=== PATIENT | female | born 1965 | race Caucasian/White ===

== ENCOUNTER 2017-11-26 20:26 | Inpatient (IN) ==
--- NOTE | 2017-11-26 21:24 | ED ---
HPI General Chief complaint: Extremity Problem,Nontraumatic Stated complaint: Fluid In Abd x2wks Time Seen by Provider: 11/26/17 21:10 Source: patient Mode of arrival: ambulatory History of Present Illness HPI narrative: Patient is a 52-year-old female presents the emergency room for evaluation of dyspnea on exertion, abdominal swelling as well as lower extremity edema. Patient reports that she has not seen a primary care doctor in over 30 years as she does not have insurance and has not been sick. Patient reports that since September, she has noticed increased swelling to her lower extremities. Patient reports that the swelling was exacerbated by being on her legs for a prolonged period of time, reports that when she comes home from work , she has increased lower leg swelling. Patient reports that swelling does increase improve when she raises her legs. Patient reports that the swelling has gotten worse and has been persistent. Reports that 10 days ago, she noted some abdominal swelling. Patient reports that she knows that she is overweight but has never had abdominal swelling in the past. Reports concern that the left side of her abdomen feels harder than the right side of her abdomen. Reports that she has been eating and drinking like her normal self. Denies abdominal pain. Denies n/v. Denies chest pain. Reports concerns as since september, she has been having extreme dyspnea on exertion. Patient reports that she feels short of breath going from her house to the car and back again. Patient does endorse that she does take 4 baby ASA 4 times a day for many years as she wanted to make sure her blood was thin Onset (ago): month(s) (past 2 months) Related Data Home Medications Medication Instructions Recorded Confirmed aspirin 324 mg PO Q6HR 11/26/17 11/26/17 Allergies Allergy/AdvReac Type Severity Reaction Status Date / Time No Known Allergies Allergy Unverified 11/26/17 21:11 Review of Systems Except as stated in HPI: all other systems reviewed are negative Cardiovascular Reports leg edema and Reports dyspnea Gastrointestinal Denies abdominal pain, Denies belching, Reports bloating, Denies heartburn, Denies diarrhea, Denies nausea and Denies vomiting PMFSH Social History Social History Substance History: No History of Abuse Smoking Status: Former smoker How Often Do You Have a Drink Containing Alcohol: Never Recent Out of Country Travel within the Last 8 Weeks: No Exam Narrative Exam Narrative: GENERAL: Mild distress SKIN: Focused skin assessment warm/dry. HEAD: Atraumatic. Normocephalic. EYES: Pupils equal and round. No scleral icterus. No injection or drainage. ENT: No nasal bleeding or discharge. Mucous membranes pink and moist. NECK: Trachea midline. No JVD. CARDIOVASCULAR: tachcardic. No murmur appreciated. RESPIRATORY: No accessory muscle use. Clear to auscultation. Breath sounds equal bilaterally. GASTROINTESTINAL: Abdomen soft, non-tender, nondistended. Hepatic and splenic margins not palpable. MUSCULOSKELETAL: No obvious deformities. No clubbing. No cyanosis. +3 Pedal edema. NEUROLOGICAL: Awake and alert. No obvious cranial nerve deficits. Motor grossly within normal limits. Normal speech. PSYCHIATRIC: Anxious mood and affect; insight and judgment normal. Course Initial Documented Vital Signs Temperature 98.8 F 11/26/17 20:45 Pulse Rate 103 H 11/26/17 20:45 Respiratory Rate 20 11/26/17 20:45 Blood Pressure 162/75 H 11/26/17 20:45 Pulse Oximetry 100 11/26/17 20:45 Last Documented Vital Signs Temperature 98.8 F 11/26/17 20:45 Pulse Rate 98 H 11/27/17 00:03 Respiratory Rate 20 11/27/17 00:03 Blood Pressure 124/63 11/27/17 00:03 Pulse Oximetry 95 11/27/17 00:03 Critical Care Time Critical Care Time: Yes Total Critical Care Time: 30 Attestation: Aggregate critical care time was 30 minutes. Time to perform other separately billable procedures was not included in the critical care time. My time did not include minutes spent treating any other patients simultaneously or on activities that did not directly contribute to the patient's treatment. The services I provided to this patient were to treat and/or prevent clinically significant deterioration that could result in: , decompensation, detioration I provided critical care services requiring my management, as noted below: Chart data review, documentation time, medication orders and management, vital sign assessments/reviewing monitor data, ordering and reviewing lab tests, ordering and interpreting/reviewing x-rays and diagnostic studies, care of the patient and discussion of the patient with the admitting physicians. Medical Decision Making STEPHANIE Attestation STEPHANIE supervised visit: No MDM Narrative Medical decision making narrative: During the course of the patients emergency department visit, the patients history, examination, and differential diagnosis were reviewed with the patient. The patient was placed on a cardiac rehab nurse with oximetry and frequent blood pressure monitoring. The patient had an IV access obtained and blood work sent for analysis. Patient has received no medical care for the past 30 years, there are multiple concerns for patient and she does have multiple medical complaints. Plan to start patients workup with obtaining EKG, CMP, CBC, cardiac enzymes as well as BNP. Patient does have fullness to the left side of her abdomen, she has no abdominal pain, reports that she has been having normal bowel movements, she has been eating and drinking like her normal self, will hold on imaging at this time as this has been an issue for the past 2 months. The patients laboratory studies were reviewed and remarkable for hemoglobin of 4.4, hematocrit 15.9. Patient consents to blood transfusion. Anemia labs are ordered prior to blood transfusion. All labs and all studies reviewed with patient, patient agreeable to admission to the hospital. case reviewed with dr. perkins who accepts pt to service Differential Diagnosis Differential Diagnosis: Differential includes CHF, ACS, arrhythmia, GI bleed, anemia, electrolyte abnormality, PE, DVT, abdominal mass versus cancer Medical Records Medical records reviewed: Yes I reviewed the patient's medical records. Lab Data Lab results reviewed: Yes I reviewed the patient's lab results. Result diagrams: 11/26/17 23:15 11/26/17 21:35 Lab Results 11/26/17 11/26/17 11/26/17 Range/Units 21:35 21:35 21:35 CBC w Diff WBC (4.0-11.0) th/mm3 RBC (4.00-5.30) mil/mm3 Hgb (11.6-15.3) gm/dL Hct (35.0-46.0) % MCV (80.0-100.0) fL MCH (27.0-34.0) pg MCHC (32.0-36.0) % RDW (11.6-17.2) % Plt Count (150-450) th/mm3 MPV (7.0-11.0) fL Neut % (Auto) (16.0-70.0) % Lymph % (Auto) (9.0-44.0) % [place] % (Auto) (0.0-8.0) % Eos % (Auto) (0.0-4.0) % Baso % (Auto) (0.0-2.0) % Neut # (Auto) (1.8-7.7) th/mm3 Lymph # (Auto) (1.0-4.8) th/mm3 [place] # (Auto) (0.0-0.9) th/mm3 Eos # (Auto) (0.0-0.4) th/mm3 Baso # (Auto) (0.0-0.2) th/mm3 WBC Differential Diff Scan Differential Comment Tear Drop Cells (None) Ovalocytes (None) Stomatocytes (None) Retic Count (0.4-3.0) % Absolute Retic (20.0-150.0) mil/L PT 11.2 (9.8-11.6) sec INR 1.1 Ratio APTT 24.5 (24.3-30.1) sec Sodium 138 (136-145) meq/L Potassium 3.8 (3.5-5.1) meq/L Chloride 102 (98-107) meq/L Carbon Dioxide 26.2 (21.0-32.0) meq/L Anion Gap 10 (5-15) meq/L BUN 11 (7-18) mg/dL Creatinine 0.59 (0.50-1.00) mg/dL Estimated GFR Greater than 89 (>89) mL/min Random Glucose 120 H (74-106) mg/dL Calcium 8.2 L (8.5-10.1) mg/dL Magnesium 2.0 (1.5-2.5) mg/dL Iron (50-170) mcg/dL TIBC (250-450) mcg/dL % Saturation (20-50) % Ferritin (8-252) ng/mL Total Bilirubin 0.5 (0.2-1.0) mg/dL AST 10 L (15-37) U/L ALT 11 (10-53) U/L Alkaline Phosphatase 80 (45-117) U/L Total Creatine Kinase 48 (26-192) U/L Troponin I Less than 0.02 L (0.02-0.05) ng/mL B-Natriuretic Peptide 211 H (0-100) pg/mL Total Protein 6.9 (6.4-8.2) g/dL Albumin 2.6 L (3.4-5.0) g/dL Lipase 67 L (73-393) U/L Vitamin B12 (193-986) pg/mL Folate (3.1-17.5) ng/mL Urine Color (Yellw/Straw) Urine Clarity (Clear) Urine pH (5.0-8.5) Ur Specific [place] (1.002-1.035) Urine Protein (Neg-Trace) mg/dL Urine Glucose (UA) (Negative) mg/dL Urine Ketones (Negative) mg/dL Urine Occult Blood (Negative) Urine Nitrate (Negative) Urine Bilirubin (Negative) Urine Urobilinogen (Less than 2) mg/dL Ur Leukocyte Esterase (Negative) Urine WBC (0-5) /hpf Ur Squamous Epith Cells (0-5) /hpf Amorphous Sediment (None) /hpf Urine Bacteria (None) /hpf Hyaline Casts (0-3) /lpf Granular Casts (None) /lpf Micro UA Comment Urine Culture Comments Blood Type Blood Type Recheck Antibody Screen 11/26/17 11/26/17 11/27/17 Range/Units 22:10 23:15 01:00 CBC w Diff Slide review pending WBC 10.5 (4.0-11.0) th/mm3 RBC 2.90 L (4.00-5.30) mil/mm3 Hgb 4.4 L* (11.6-15.3) gm/dL Hct 15.9 L* (35.0-46.0) % MCV 55.0 L (80.0-100.0) fL MCH 15.2 L (27.0-34.0) pg MCHC 27.6 L (32.0-36.0) % RDW 23.0 H (11.6-17.2) % Plt Count 343 (150-450) th/mm3 MPV 8.1 (7.0-11.0) fL Neut % (Auto) 81.5 H (16.0-70.0) % Lymph % (Auto) 10.3 (9.0-44.0) % [place] % (Auto) 6.2 (0.0-8.0) % Eos % (Auto) 1.7 (0.0-4.0) % Baso % (Auto) 0.3 (0.0-2.0) % Neut # (Auto) 8.5 H (1.8-7.7) th/mm3 Lymph # (Auto) 1.1 (1.0-4.8) th/mm3 [place] # (Auto) 0.7 (0.0-0.9) th/mm3 Eos # (Auto) 0.2 (0.0-0.4) th/mm3 Baso # (Auto) 0.0 (0.0-0.2) th/mm3 WBC Differential . Diff Scan Auto diff confirmed Differential Comment . Tear Drop Cells 1+ H (None) Ovalocytes 1+ H (None) Stomatocytes 1+ H (None) Retic Count (0.4-3.0) % Absolute Retic (20.0-150.0) mil/L PT (9.8-11.6) sec INR Ratio APTT (24.3-30.1) sec Sodium (136-145) meq/L Potassium (3.5-5.1) meq/L Chloride (98-107) meq/L Carbon Dioxide (21.0-32.0) meq/L Anion Gap (5-15) meq/L BUN (7-18) mg/dL Creatinine (0.50-1.00) mg/dL Estimated GFR (>89) mL/min Random Glucose (74-106) mg/dL Calcium (8.5-10.1) mg/dL Magnesium (1.5-2.5) mg/dL Iron (50-170) mcg/dL TIBC (250-450) mcg/dL % Saturation (20-50) % Ferritin (8-252) ng/mL Total Bilirubin (0.2-1.0) mg/dL AST (15-37) U/L ALT (10-53) U/L Alkaline Phosphatase (45-117) U/L Total Creatine Kinase (26-192) U/L Troponin I (0.02-0.05) ng/mL B-Natriuretic Peptide (0-100) pg/mL Total Protein (6.4-8.2) g/dL Albumin (3.4-5.0) g/dL Lipase (73-393) U/L Vitamin B12 (193-986) pg/mL Folate (3.1-17.5) ng/mL Urine Color Yellow (Yellw/Straw) Urine Clarity Clear (Clear) Urine pH 5.5 (5.0-8.5) Ur Specific [place] Greater/equal 1.030 (1.002-1.035) Urine Protein 100 H (Neg-Trace) mg/dL Urine Glucose (UA) Negative (Negative) mg/dL Urine Ketones Negative (Negative) mg/dL Urine Occult Blood Large H (Negative) Urine Nitrate Negative (Negative) Urine Bilirubin Negative (Negative) Urine Urobilinogen 0.2 (Less than 2) mg/dL Ur Leukocyte Esterase Negative (Negative) Urine WBC 5-8 H (0-5) /hpf Ur Squamous Epith Cells 0-5 (0-5) /hpf Amorphous Sediment Many H (None) /hpf Urine Bacteria Moderate H (None) /hpf Hyaline Casts 4-10 H (0-3) /lpf Granular Casts 4-10 H (None) /lpf Micro UA Comment Culture indicated Urine Culture Comments Culture indicated Blood Type O Positive Blood Type Recheck Required Antibody Screen Negative 11/27/17 11/27/17 Range/Units 01:50 01:50 CBC w Diff WBC (4.0-11.0) th/mm3 RBC (4.00-5.30) mil/mm3 Hgb (11.6-15.3) gm/dL Hct (35.0-46.0) % MCV (80.0-100.0) fL MCH (27.0-34.0) pg MCHC (32.0-36.0) % RDW (11.6-17.2) % Plt Count (150-450) th/mm3 MPV (7.0-11.0) fL Neut % (Auto) (16.0-70.0) % Lymph % (Auto) (9.0-44.0) % [place] % (Auto) (0.0-8.0) % Eos % (Auto) (0.0-4.0) % Baso % (Auto) (0.0-2.0) % Neut # (Auto) (1.8-7.7) th/mm3 Lymph # (Auto) (1.0-4.8) th/mm3 [place] # (Auto) (0.0-0.9) th/mm3 Eos # (Auto) (0.0-0.4) th/mm3 Baso # (Auto) (0.0-0.2) th/mm3 WBC Differential Diff Scan Differential Comment Tear Drop Cells (None) Ovalocytes (None) Stomatocytes (None) Retic Count 5.2 H (0.4-3.0) % Absolute Retic 150.1 H (20.0-150.0) mil/L PT (9.8-11.6) sec INR Ratio APTT (24.3-30.1) sec Sodium (136-145) meq/L Potassium (3.5-5.1) meq/L Chloride (98-107) meq/L Carbon Dioxide (21.0-32.0) meq/L Anion Gap (5-15) meq/L BUN (7-18) mg/dL Creatinine (0.50-1.00) mg/dL Estimated GFR (>89) mL/min Random Glucose (74-106) mg/dL Calcium (8.5-10.1) mg/dL Magnesium (1.5-2.5) mg/dL Iron 13 L (50-170) mcg/dL TIBC 491 H (250-450) mcg/dL % Saturation 2.6 L (20-50) % Ferritin 3 L (8-252) ng/mL Total Bilirubin (0.2-1.0) mg/dL AST (15-37) U/L ALT (10-53) U/L Alkaline Phosphatase (45-117) U/L Total Creatine Kinase (26-192) U/L Troponin I (0.02-0.05) ng/mL B-Natriuretic Peptide (0-100) pg/mL Total Protein (6.4-8.2) g/dL Albumin (3.4-5.0) g/dL Lipase (73-393) U/L Vitamin B12 405 (193-986) pg/mL Folate 9.7 (3.1-17.5) ng/mL Urine Color (Yellw/Straw) Urine Clarity (Clear) Urine pH (5.0-8.5) Ur Specific [place] (1.002-1.035) Urine Protein (Neg-Trace) mg/dL Urine Glucose (UA) (Negative) mg/dL Urine Ketones (Negative) mg/dL Urine Occult Blood (Negative) Urine Nitrate (Negative) Urine Bilirubin (Negative) Urine Urobilinogen (Less than 2) mg/dL Ur Leukocyte Esterase (Negative) Urine WBC (0-5) /hpf Ur Squamous Epith Cells (0-5) /hpf Amorphous Sediment (None) /hpf Urine Bacteria (None) /hpf Hyaline Casts (0-3) /lpf Granular Casts (None) /lpf Micro UA Comment Urine Culture Comments Blood Type Blood Type Recheck Antibody Screen Imaging Data Attestation: I personally reviewed and interpreted this imaging study as follows : Radiologist's impression: ITS Impressions Chest X-Ray 11/26/17 21:11 CONCLUSION: 1. Cardiomegaly with positive fluid balance. Venous Doppler Study 11/26/17 21:11 CONCLUSION: 1. Somewhat limited examination due to patient's body habitus. 2. No definitive sonographic evidence for lower extremity DVT. Abdomen/Pelvis CT 11/26/17 23:13 CONCLUSION: 1. Limited examination due to patient's body habitus. 2. No definite acute abnormality in the abdomen or pelvis. Specifically, no ascites or bowel obstruction. 3. Hepatomegaly with diffusely decreased hepatic density consistent with hepatic steatosis. 4. Splenomegaly. 5. Sigmoid diverticulosis without definitive evidence for diverticulitis. 6. 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 ECG Data EKG Prior to Arrival: No Attestation: I personally reviewed and interpreted this ECG as follows: Prior ECG tracings: not available for review Interpretation: EKG at 2129: Sinus tach at 102bpm, qt/qtc: 353/412, nonspecific st and t wave changes Discharge Plan Discharge Disposition Patient Disposition: 30 Still Patient Discharge Condition Condition: Serious Physicians Team ED Provider: Margaret Ledesma Primary Care Provider: Primary Care Callumi,Marsha Attending Provider: Margaret Perkins Status ED Status: Admitted Patient
[2017-11-26 22:00] LABS: Chloride 102 meq/L (98-107); Potassium 3.8 meq/L (3.5-5.1); Sodium 138 meq/L (136-145)
[2017-11-26 22:04] LABS: Albumin 2.6 g/dL (3.4-5.0); Anion Gap 10 meq/L (5-15); Calcium 8.2 mg/dL (8.5-10.1); Carbon Dioxide 26.2 meq/L (21.0-32.0); Glucose,Random 120 mg/dL (74-106); Lipase 67 U/L (73-393)
[2017-11-26 22:05] LABS: Blood Urea Nitrogen 11 mg/dL (7-18)
[2017-11-26 22:06] LABS: Activated Partial Thrombo Time 24.5 sec (24.3-30.1); INR 1.1 Ratio; Prothrombin Time 11.2 sec (9.8-11.6)
[2017-11-26 22:07] LABS: Alanine Aminotransferase 11 U/L (10-53); Aspartate Aminotransferase 10 U/L (15-37); Glomerular Filtration Rate Greater Than 89 mL/min (>89)
[2017-11-26 22:09] LABS: Total Protein 6.9 g/dL (6.4-8.2)
[2017-11-26 22:10] LABS: Alkaline Phosphatase 80 U/L (45-117)
[2017-11-26 22:28] LABS: Bilirubin,Urine Negative (Negative); Clarity,Urine Clear (Clear); Color,Urine Yellow (Yellw/Straw); Glucose,Urine (UA) Negative (Negative); Leukocyte Esterase,Urine Negative (Negative); Nitrite,Urine Negative (Negative); PH,Urine 5.5 (5.0-8.5); Specific Gravity,Urine Greater/Equal 1.030 (1.002-1.035); Urobilinogen,Urine 0.2 mg/dL (Less than 2)
[2017-11-26 22:43] LABS: Creatine Kinase 48 U/L (26-192)
[2017-11-26 23:01] LABS: Amorphous Sediment,Urine Many /hpf; Bacteria,Urine Moderate /hpf; Squamous Epithelial Cell,Urine 0-5 /hpf (0-5)
--- NOTE | 2017-11-26 23:21 | US ---
EXAM DATE: 11/26/2017 11:10 PM EDT AGE/SEX: 52 years / Female INDICATIONS: Lower extremity edema with dyspnea on exertion. CLINICAL DATA: This is the patient's initial encounter. Patient reports that signs and symptoms have been present for 2 weeks and indicates a pain score of 5/10. MEDICAL/SURGICAL HISTORY: . Edema. None. COMPARISON: No prior exams available for comparison. TECHNIQUE: Venous ultrasound of both lower extremities was performed from the inguinal ligament to t he proximal calf. Real-time, color Doppler and spectral tracing, compression and augmentation techni ques were used. FINDINGS: Somewhat limited examination due to patient's body habitus. Right Leg: Normal compression of the deep venous system from the inguinal region to the proximal kiera f. No echogenic clot is seen. Normal response of the venous system to augmentation and respiration. Left Leg: Normal compression of the deep venous system from the inguinal region to the proximal calf . No echogenic clot is seen. Normal response of the venous system to augmentation and respiration. Other: None. CONCLUSION: 1. Somewhat limited examination due to patient's body habitus. 2. No definitive sonographic evidence for lower extremity DVT. Electronically signed by: Xavi Manning MD 11/26/2017 11:20 PM EDT
--- NOTE | 2017-11-26 23:22 | XR ---
EXAM DATE: 11/26/2017 11:18 PM EDT AGE/SEX: 52 years / Female INDICATIONS: Shortness of breath and fluid retention. CLINICAL DATA: This is the patient's initial encounter. Patient reports that signs and symptoms have been present for 3 days and indicates a pain score of 0/10. MEDICAL/SURGICAL HISTORY: None. None. COMPARISON: No prior exams available for comparison. FINDINGS: Mild diffuse interstitial prominence. Cardiac silhouette is enlarged. Central pulmonary vascularity i s indistinct. Bony thorax is intact. CONCLUSION: 1. Cardiomegaly with positive fluid balance. Electronically signed by: Xavi Manning MD 11/26/2017 11:20 PM EDT
--- NOTE | 2017-11-26 23:45 | CT ---
EXAM DATE: 11/26/2017 11:38 PM EDT AGE/SEX: 52 years / Female INDICATIONS: Abdominal distention. CLINICAL DATA: This is the patient's initial encounter. Patient reports that signs and symptoms have been present for 2 weeks and indicates a pain score of 10/10. MEDICAL/SURGICAL HISTORY: None. None. ORAL CONTRAST: No oral contrast ingested. RADIATION DOSE: 33.60 CTDI (mGy) ; Patient body habitus COMPARISON: No prior exams available for comparison. TECHNIQUE: Multiple contiguous axial images were obtained through the abdomen and pelvis following b olus infusion of 100 ml Omnipaque 350 (iohexol) nonionic water-soluble contrast as a single exam do se. No oral contrast ingested. Using automated exposure control and adjustment of the mA and/or kV a ccording to patient size, radiation dose was kept as low as reasonably achievable to obtain optimal d iagnostic quality images. DICOM format image data is available electronically for review and compari son. FINDINGS: LOWER LUNGS: The visualized lower lungs are clear. LIVER: Liver demonstrates diffusely decreased density and is enlarged. No gross focal mass or intrah epatic ductal dilatation. SPLEEN: Spleen is enlarged measuring up to 16 cm in length. PANCREAS: Unremarkable without mass or calcification. 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 Kidneys demonstrate uniform enhancement without radiopaque renal calculi or hydronephrosis. ADRENAL GLANDS: Unremarkable. AORTA: Misit-aneurysmal. BOWEL/MESENTERY: Mild sigmoid diverticulosis. Bowel otherwise appears unremarkable without evidence for obstruction. Appendix is visualized and normal in appearance. No free fluid or drainable fluid co llections. ABDOMINAL WALL: Intact. RETROPERITONEUM: No evidence of adenopathy in the retrocrural, para-aortic, or deep pelvic regions. BLADDER: Contours are smooth. REPRODUCTIVE: No abnormal masses or calcifications seen. BONY STRUCTURES: Advanced degenerative spondylosis of the lumbar spine CONCLUSION: 1. Limited examination due to patient's body habitus. 2. No definite acute abnormality in the abdomen or pelvis. Specifically, no ascites or bowel obstruc tion. 3. Hepatomegaly with diffusely decreased hepatic density consistent with hepatic steatosis. 4. Splenomegaly. 5. Sigmoid diverticulosis without definitive evidence for diverticulitis. 6. 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 Electronically signed by: Xavi Manning MD 11/26/2017 11:43 PM EDT
[2017-11-26 23:50] LABS: Baso % (Auto) 0.3 % (0.0-2.0); Eos # (Auto) 0.2 th/mm3 (0.0-0.4); Eos % (Auto) 1.7 % (0.0-4.0); Lymph # (Auto) 1.1 th/mm3 (1.0-4.8); Lymph % (Auto) 10.3 % (9.0-44.0); Mean Corpuscular Hemoglobin 15.2 pg (27.0-34.0); Mean Platelet Volume 8.1 fL (7.0-11.0); Mono # (Auto) 0.7 th/mm3 (0.0-0.9); Mono % (Auto) 6.2 % (0.0-8.0); Neut # (Auto) 8.5 th/mm3 (1.8-7.7); Neut % (Auto) 81.5 % (16.0-70.0); Platelet Count 343 th/mm3 (150-450); White Blood Count 10.5 th/mm3 (4.0-11.0)
[2017-11-26 23:51] LABS: Mean Corpuscular HGB Conc 27.6 % (32.0-36.0)
[2017-11-26 23:58] LABS: Hemoglobin 4.4 gm/dL (11.6-15.3)
[2017-11-26 23:59] LABS: Hematocrit 15.9 % (35.0-46.0)
[2017-11-27 00:42] LABS: Ovalocytes 1+
[2017-11-27 00:43] LABS: Tear Drop Cells 1+
[2017-11-27 00:44] LABS: Stomatocytes 1+
[2017-11-27] MEDS ORDERED: Sodium Chlor 0.9% Inj 250 ML IV.SIG SCH ×3 (01:00→17:00)
[2017-11-27] MEDS ORDERED: Bisacodyl 10 MG Supp RECTAL PRN (01:17)
[2017-11-27 02:54] LABS: Reticulocyte Percent 5.2 % (0.4-3.0)
[2017-11-27 03:26] LABS: % Iron Saturation 2.6 % (20-50); Folate 9.7 ng/mL (3.1-17.5)
[2017-11-27 04:29] LABS: Creatine Kinase 44 U/L (26-192)
[2017-11-27 04:56] LABS: Creatine Kinase 48 U/L (26-192)
[2017-11-27] MEDS: Temazepam 15 MG Capsule PO PRN (05:47)
--- NOTE | 2017-11-27 11:02 | P.HPIM ---
History of Present Illness Primary Care Physician: No Primary Care Physician Chief Complaint: Abdominal fullness and irregular vaginal bleeding History of Present Illness: This patient is a 52-year-old female came to the emergency room with 10 days of increased shortness of breath, anxiety, and irregular vaginal bleeding. She had some abdominal fullness as well worse on the left side. She has not had any fevers or chills but feels quite tired and says that she has begun to count the steps from her place of employment to her car and back into her house. She came to emergency room for further evaluation due to these complaints. She is found to have a hemoglobin of 4.4. She does not follow with the primary care doctors and has no personal history of anemia. She says she has had irregular vaginal bleeding over the last several months. Since August she is felt that she has been moving a lot slower and she has had increased ankle swelling since August. She describes no fevers or chills. Patient says she takes a baby aspirin 4 times a day. She notes no intestinal bleeding. She has been admitted to the hospital for further evaluation and treatment - Diagnosis (1) Anemia (2) Abdominal pain Inpatient Certification: I certify that the inpatient services were ordered in accordance with Medicare regulations governing the order. This includes certification that hospital inpatient services are reasonable and necessary and in the case of services not specified as inpatient-only under 42 CFR 419.22(n), that they are appropriately provided as inpatient services in accordance to with the 2-midnight benchmark under 43 CFR 412.3(e) Estimated Total Length of Stay (Days): 2 Plans for Post Hospital Care: Not yet determined Review of Systems All other systems reviewed negative except as stated in HPI Constitutional: Reports lack of energy, Reports malaise Cardiovascular: Reports irregular heart rhythm Respiratory: Reports shortness of breath, Reports shortness of breath with activity Genitourinary: Reports abnormal vaginal bleeding PMFSH - History History Provided By: Patient - Medical / Surgical Hx Neg / Unobtainable Medical Problems Denied: Yes Surgical History: No Previous Surgery - Medical History Medical History: Medical History (Last Reviewed 11/26/17 @ 21:19 by Margaret Ledesma) Patient denies medical problems - Surgical History Surgical History: Surgical History (Last Reviewed 11/26/17 @ 21:19 by Margaret Ledesma) No history of previous surgery - Family History Family History: Family History (Last Updated 11/27/17 @ 10:55 by Kimberly Angulo MD) Other Colon cancer Dementia Throat cancer - Tobacco History Second Hand Smoke Exposure: No Smoking Status: Former smoker - Alcohol History How Often Do You Have a Drink Containing Alcohol: Never - Substance Use History Substance History: No History of Abuse - Travel History Recent Travel Out of the Country Within the Last 8 Weeks: No - Immunization History Tetanus Immunization: Unsure Hx Influenza Vaccine This Season: No Medications and Allergies Active Medications: Active Medications Acetaminophen (Tylenol) 650 mg PO Q4H PRN PRN Reason: Temp > 100.4 Al Hydroxide/Mg Hydroxide (Milk Of Magnesia Liq) 30 ml PO Q12H PRN PRN Reason: Mild Constipation Bisacodyl (Dulcolax Supp) 10 mg RECTAL DAILY PRN PRN Reason: SEVERE CONSITIPATION Sodium Chloride (Ns Inj) 250 mls @ 15 mls/hr IV.SIG ONCE OZZY Stop: 11/27/17 17:39 Last Admin: 11/27/17 05:21 Dose: 15 mls/hr Sodium Chloride (Ns Inj) 250 mls @ 15 mls/hr IV.SIG ONCE OZZY Stop: 11/27/17 20:39 Lactulose (Lactulose Liq) 30 ml PO DAILY PRN PRN Reason: SEVERE CONSITIPATION Ondansetron HCl (Zofran Inj) 4 mg IV.PUSH Q6H PRN PRN Reason: NAUSEA OR VOMITING Senna/Docusate Sodium (Ludy-Colace) 1 tab PO BID OZZY Sennosides (Senokot) 17.2 mg PO Q12H PRN PRN Reason: Moderate Constipation Sodium Chloride (Ns Flush) 2 ml IV.FLUSH UNSCH PRN PRN Reason: FLUSH AFTER USING IV ACCESS Temazepam (Restoril) 15 mg PO HS PRN PRN Reason: INSOMNIA Last Admin: 11/27/17 05:47 Dose: 15 mg Allergies Allergy/AdvReac Type Severity Reaction Status Date / Time No Known Allergies Allergy Unverified 11/26/17 21:11 Home Medications Medication Instructions Recorded Confirmed Type aspirin 324 mg PO Q6HR 11/26/17 11/26/17 History Exam Vital signs: Vital Signs 11/26/17 20:45 11/26/17 21:26 11/27/17 00:03 Temperature 98.8 F Pulse Rate 103 H 98 H 98 H Respiratory Rate 20 20 Blood Pressure 162/75 H 165/78 H 124/63 Pulse Oximetry 100 94 L 95 11/27/17 04:57 11/27/17 05:08 11/27/17 05:33 Temperature 99.2 F 99.2 F 99.7 F H Pulse Rate 98 H 97 H 95 H Respiratory Rate 18 18 18 Blood Pressure 115/51 L 115/51 L 100/56 L Pulse Oximetry 95 94 L 100 11/27/17 07:06 11/27/17 08:45 11/27/17 09:00 Temperature 98.9 F Pulse Rate 90 95 H Respiratory Rate 18 22 Blood Pressure 119/61 124/57 L Pulse Oximetry 97 95 95 11/27/17 09:04 11/27/17 09:19 Temperature 98.9 F 99.3 F Pulse Rate 92 H 89 Respiratory Rate 25 H Blood Pressure 138/48 L 140/56 L Pulse Oximetry 97 Intake & Output 11/26/17 11/27/17 11/27/17 18:59 06:59 18:59 Intake Total 0 / 0 240 / 240 Output Total 1000 / 1000 Balance 0 / 0 -760 / -760 Weight 200 kg 197.6 kg Intake: Oral 240 / 240 Intake (Blood Product) Amt 0 / 0 0 / 0 Rbc As-3 Leukoreduced Unit 0 / 0 [id number] Rbc As-3 Leukoreduced Unit 0 / 0 0 / 0 [id number] Output: Urine 0 / 0 Urine Amount (Catheter) 1000 / 1000 Indwelling Urethral Catheter 1000 / 1000 Other: Weight On Admission 200 kg Narrative: GENERAL: Patient anxious complaining of abdominal fullness, patient is pale SKIN: Warm and dry. No rashes or ecchymotic injuries EYES: Pupils equal and round. No scleral icterus. No injection or drainage. ENT: External ear exam normal. No acute nasal bleeding or discharge. Mucous membranes pink and moist. CARDIOVASCULAR: Regular rate and rhythm. No murmurs gallops or rubs appreciated RESPIRATORY: Good air flow and effort without accessory muscle use. Clear to auscultation. Breath sounds equal bilaterally. GASTROINTESTINAL: Abdomen soft, there is some subcutaneous fullness on the left side non-tender, nondistended. Hepatic and splenic margins not palpable. MUSCULOSKELETAL: Extremities without clubbing, cyanosis, or edema. No obvious deformities. NEUROLOGICAL: Awake and alert. No obvious cranial nerve deficits. Motor grossly within normal limits. Five out of 5 muscle strength in the arms and legs. Normal speech. Results - Labs CBC & Chem 7: 11/26/17 23:15 11/26/17 21:35 Labs: Short CBC 11/26/17 Range/Units 23:15 WBC 10.5 (4.0-11.0) th/mm3 Hgb 4.4 L* (11.6-15.3) gm/dL Hct 15.9 L* (35.0-46.0) % Plt Count 343 (150-450) th/mm3 BMP 11/26/17 21:35 Sodium 138 Potassium 3.8 Chloride 102 Carbon Dioxide 26.2 BUN 11 Creatinine 0.59 Calcium 8.2 L Cardiac Enzymes 11/26/17 11/27/17 11/27/17 Range/Units 21:35 02:30 04:12 Total Creatine Kinase 48 44 48 (26-192) U/L Troponin I Less than 0.02 L Less than 0.02 L Less than 0.02 L (0.02-0.05) ng/mL Liver Function 11/26/17 Range/Units 21:35 Total Bilirubin 0.5 (0.2-1.0) mg/dL AST 10 L (15-37) U/L ALT 11 (10-53) U/L Alkaline Phosphatase 80 (45-117) U/L Albumin 2.6 L (3.4-5.0) g/dL Urine 11/26/17 Range/Units 22:10 Urine Color Yellow (Yellw/Straw) Urine Clarity Clear (Clear) Urine pH 5.5 (5.0-8.5) Ur Specific [place] Greater/equal 1.030 (1.002-1.035) Urine Protein 100 H (Neg-Trace) mg/dL Urine Glucose (UA) Negative (Negative) mg/dL - Imaging Impressions Chest X-Ray 11/26/17 21:11 CONCLUSION: 1. Cardiomegaly with positive fluid balance. Venous Doppler Study 11/26/17 21:11 CONCLUSION: 1. Somewhat limited examination due to patient's body habitus. 2. No definitive sonographic evidence for lower extremity DVT. Abdomen/Pelvis CT 11/26/17 23:13 CONCLUSION: 1. Limited examination due to patient's body habitus. 2. No definite acute abnormality in the abdomen or pelvis. Specifically, no ascites or bowel obstruction. 3. Hepatomegaly with diffusely decreased hepatic density consistent with hepatic steatosis. 4. Splenomegaly. 5. Sigmoid diverticulosis without definitive evidence for diverticulitis. 6. 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 Caprini VTE Risk Assessment Caprini VTE Risk Assessment: Moderate/High Risk (score >= 2) VTE Pharmacological Exception Reason: High risk for bleeding Caprini Risk Assessment Model: Point Value = 1 Point Value = 2 Point Value = 3 Point Value = 5 Age 41-60 Minor surgery BMI > 25 kg/m2 Swollen legs Varicose veins or History of unexplained or recurrent spontaneous Oral contraceptives or hormone replacement Sepsis (< 1 month) Serious lung disease, including pneumonia (< 1 month) Abnormal pulmonary function Acute myocardial infarction Congestive heart failure (< 1 month) History of inflammatory bowel disease Medical patient at bed rest Age 61-74 Arthroscopic surgery Major open surgery (> 45 min) Laparoscopic surgery (> 45 min) Malignancy Confined to bed (> 72 hours) Immobilizing plaster cast Central venous access Age >= 75 History of VTE Family history of VTE Factor V Leiden Prothrombin [id number] Lupus anticoagulant Anticardiolipin antibodies Elevated serum homocysteine Heparin-induced thrombocytopenia Other congenital or acquired thrombophilia Stroke (< 1 month) Elective arthroplasty Hip, pelvis, or leg fracture Acute spinal cord injury (< 1 month) Prophylaxis Regimen: Total Risk Factor Score Risk Level Prophylaxis Regimen 0-1 Low Early ambulation 2 Moderate Order ONE of the following: *Sequential Compression Device (SCD) *Heparin 5000 units SQ BID 3-4 Higher Order ONE of the following medications: *Heparin 5000 units SQ TID *Enoxaparin/Lovenox 40 mg SQ daily (WT < 150 kg, CrCl > 30 mL/min) *Enoxaparin/Lovenox 30 mg SQ daily (WT < 150 kg, CrCl > 10-29 mL/min) *Enoxaparin/Lovenox 30 mg SQ BID (WT < 150 kg, CrCl > 30 mL/min) AND/OR *Sequential Compression Device (SCD) 5 or more Highest Order ONE of the following medications: *Heparin 5000 units SQ TID (Preferred with Epidurals) *Enoxaparin/Lovenox 40 mg SQ daily (WT < 150 kg, CrCl > 30 mL/min) *Enoxaparin/Lovenox 30 mg SQ daily (WT < 150 kg, CrCl > 10-29 mL/min) *Enoxaparin/Lovenox 30 mg SQ BID (WT < 150 kg, CrCl > 30 mL/min) AND *Sequential Compression Device (SCD) Assessment and Plan - Assessment (1) Anemia Code(s): D64.9 - Anemia, unspecified Status: Acute Plan: Continue with plans for blood transfusion Patient also will benefit from IV iron GI consult for possible endoscopy given patient's family history colon cancer, excessive aspirin intake, and unexplained iron deficiency anemia in a perimenopausal female Also follow-up pelvic ultrasound due to irregular vaginal bleeding Check TSH (2) Abdominal pain Code(s): R10.9 - Unspecified abdominal pain Status: Acute Plan: Etiology unclear at this time. Patient feels there is fluid in abdomen but on my review of the CAT scan and on radiology review there does not appear to be any ascites. H&P: Quality - VTE Deep Vein Thrombosis/Pulmonary Embolism Present on Admission: No (1) Anemia Qualifiers: Anemia type: iron deficiency Iron deficiency anemia type: unspecified iron deficiency Qualified Code(s): D50.9 - Iron deficiency anemia, unspecified
[2017-11-27] MEDS: ALPRAZolam 0.5 MG Tablet PO PRN (11:27)
[2017-11-27] MEDS: Senna/Docusate Sodium 8.6/50 MG Tablet PO SCH (11:28)
--- NOTE | 2017-11-27 13:07 | ECG ---
Date Performed: 11/26/2017 Time Performed: 21:29:20 PTAGE: 52 years EKG: SINUS TACHYCARDIA NONSPECIFIC ST & T-WAVE ABNORMALITY ABNORMAL RHYTHM ECG NO PREVIOUS TRACING DOCTOR: Ernesto Vela Interpretating Date/Time 11/27/2017 13:06:23
[2017-11-27] MEDS: Iron Sucrose Inj 200 MG in Sodium Chlor 0.9% Inj 100 ML IV.SIG SCH (13:41)
[2017-11-27 13:54] LABS: Hematocrit 19.8 % (35.0-46.0); Hemoglobin 5.6 gm/dL (11.6-15.3)
[2017-11-27] MEDS ORDERED: Heparin - SQ 10,000 UNITS/ML Vial SQ SCH (14:00)
[2017-11-27] MEDS ORDERED: Acetaminophen 325 MG Tablet PO PRN (16:05)
--- NOTE | 2017-11-27 17:19 | US ---
EXAM DATE: 11/27/2017 5:03 PM EDT AGE/SEX: 52 years / Female INDICATIONS: Vaginal bleeding. CLINICAL DATA: This is the patient's initial encounter. Patient reports that signs and symptoms have been present for 3 weeks and indicates a pain score of 0/10. MEDICAL/SURGICAL HISTORY: . Vaginal bleeding. None. COMPARISON: [facility], CT ABDOMEN & PELVIS W CONTRAST, 11/26/2017. . MEASUREMENTS: Uterus:__7.9 x 4x 5.0 cm Endometrial Stripe:__8 mm Right Ovary:__ . Not visualized. Left Ovary:__ . Not visualized. FINDINGS: Uterus: The uterus appears heterogeneous. Endometrial Stripe: The endometrial stripe displays homogeneous echotexture. Right Ovary: Not visualized. Left Ovary: Not visualized. Fluid: There is minimal free fluid seen in the cul-de-sac. Other: None. CONCLUSION: 1. Heterogeneous uterus. The endometrium measures 8 mm which is too thick for a postmenopausal femal e but can be within normal limits for a menstruating female. The patient reports her last menstrual p eriod was in September 2017. 2. The ovaries are not seen. No adnexal mass is seen. Electronically signed by: Yifan Tse MD 11/27/2017 5:18 PM EDT
--- NOTE | 2017-11-27 17:34 | ECHRPT ---
Indication: SOB CONCLUSIONS Normal left ventricular size. Mild concentric left ventricular hypertrophy. The left ventricular systolic function is normal with an estimated ejection fraction in the range of 55-60%. The left atrial size is moderately dilated. No atrial level shunt is demonstrated by color flow Doppler interrogation. The aortic root and proximal ascending aorta are not well visualized. There is mild to moderate tricuspid valve regurgitation. The estimated pulmonary arterial pressure is 75.9 mmHg. BP: / HR: Rhythm: Sinus MEASUREMENTS (Male / Female) Normal Values Technical Quality:Fair 2D ECHO LV Diastolic Diameter PLAX 5.4 cm 4.2 - 5.9 / 3.9 - 5.3 cm LV Systolic Diameter PLAX 4.3 cm IVS Diastolic Thickness 1.2 cm 0.6 - 1.0 / 0.6 - 0.9 cm LVPW Diastolic Thickness 1.2 cm 0.6 - 1.0 / 0.6 - 0.9 cm LV Relative Wall Thickness 0.4 RV Internal Dim ED PLAX 3.9 cm LVOT Diameter 2.5 cm Aortic Root Diameter 3.6 cm LA Systolic Diameter LX 4.9 cm 3.0 - 4.0 / 2.7 - 3.8 cm M-MODE AV Cusp Separation MM 2.1 cm DOPPLER AV Peak Velocity 207.0 cm/s AV Peak Gradient 17.1 mmHg AV Mean Gradient 9.0 mmHg AV Velocity Time Integral 34.8 cm LVOT Peak Velocity 102.0 cm/s LVOT Peak Gradient 4.2 mmHg LVOT Velocity Time Integral 20.6 cm AV Area Cont Eq vti 2.9 cm AV Area Cont Eq pk 2.4 cm Mitral E Point Velocity 101.0 cm/s Mitral A Point Velocity 67.1 cm/s Mitral E to A Ratio 1.5 LV E' Lateral Velocity 12.3 cm/s Mitral E to LV E' Lateral Ratio 8.2 LV E' Septal Velocity 9.6 cm/s Mitral E to LV E' Septal Ratio 10.6 TR Peak Velocity 406.0 cm/s TR Peak Gradient 65.9 mmHg Right Atrial Pressure 10.0 mmHg Pulmonary Artery Systolic Pressu 75.9 mmHg Right Ventricular Systolic Press 75.9 mmHg PV Peak Velocity 71.4 cm/s PV Peak Gradient 2.0 mmHg FINDINGS LEFT VENTRICLE Normal left ventricular size. Mild concentric left ventricular hypertrophy. The left ventricular systolic function is normal with an estimated ejection fraction in the range of 55-60%. RIGHT VENTRICLE Normal right ventricular size and systolic function. LEFT ATRIUM The left atrial size is moderately dilated. RIGHT ATRIUM The right atrial size is normal. ATRIAL SEPTUM No atrial level shunt is demonstrated by color flow Doppler interrogation. AORTA The aortic root and proximal ascending aorta are not well visualized. MITRAL VALVE Structurally normal mitral valve. No mitral valve stenosis or regurgitation. AORTIC VALVE Trileaflet aortic valve. No aortic valve stenosis or regurgitation. TRICUSPID VALVE There is mild to moderate tricuspid valve regurgitation. The estimated pulmonary arterial pressure is 75.9 mmHg. PULMONARY VALVE No pulmonary valve regurgitation or stenosis. VESSELS The inferior vena cava is normal in size. PERICARDIUM No pericardial effusion. Ravindra Elliott MD, FACC (Electronically Signed) Final Date:27 November 2017 17:33
[2017-11-27] MEDS ORDERED: PEG 3350/E-Lyte Soln 4000 ML Bottle PO SCH (19:00)
--- NOTE | 2017-11-27 19:13 | MB ---
cc: Ana Hager MD DATE: 11/27/2017 REASON FOR REFERRAL: Microcytic anemia with iron deficiency. Thank you for the consultation. HISTORY OF PRESENT ILLNESS: A 52-year-old morbidly obese lady who came complaining of shortness of breath and anxiety, and patient had some vaginal bleeding on and off for the last few months. The patient is extremely obese. She stated that she had black stool in the past, but because of diet. She denied rectal bleeding. She never had colonoscopy, found to have hemoglobin of 4.4. The patient also has abdominal wall edema, according to her, that her abdomen is getting bigger. No other significant GI complaints except family history of colon cancer. PAST MEDICAL HISTORY: 1. Significant for irregular heartbeat. 2. Vaginal bleeding. PAST SURGICAL HISTORY: None. FAMILY HISTORY: Cancer, dementia, throat cancer. SOCIAL HISTORY: Used to smoke, not anymore. Never drank alcohol. No drugs. REVIEW OF SYSTEMS: All 12-point negative except HPI. PHYSICAL EXAMINATION: GENERAL: Alert, oriented, in no acute distress. VITAL SIGNS: Stable. HEENT: Pupils are reactive to light. NECK: Supple. CHEST: Decreased breathing sounds because of body habitus. ABDOMEN: Significantly obese. The patient has some abdominal wall edema, some tenderness in the abdominal wall. EXTREMITIES: Plus 1 edema. NEUROLOGIC: Intact. PSYCHOLOGIC: Anxious. LABORATORY DATA: White count 10.5, hemoglobin 4.4, now 5.6, platelets 343. INR 1.1. Iron saturation was 2.6, ferritin 3. Liver function tests were normal. Chemistry was normal. Lipase was 67. Pelvic ultrasound showed some thickening in the uterus. Abdominal CT scan limited because of body habitus. No definite abnormality in the abdomen or pelvis, some hepatomegaly consistent with hepatic steatosis, splenomegaly, sigmoid diverticulosis. ASSESSMENT AND PLAN: 1. A 52-year-old lady with significant anemia, questionable etiology, could be vaginal bleed, but with a strong history of family history of colon cancer and the black stool, I recommend doing upper endoscopy and colonoscopy. I discussed with the patient the procedure and complications. She agreed to have it done. This will be done tomorrow. 2. The patient is significantly anemic. She will need packed red blood cells to bring her hemoglobin up. 3. Further plan depends on the findings. MD TESSA Cassidy , 06:54 PM , 07:12 PM
[2017-11-28] MEDS: Senna/Docusate Sodium 8.6/50 MG Tablet PO SCH ×3 (01:11→20:02)
[2017-11-28 04:39] LABS: Baso % (Auto) 7.6 % (0.0-2.0); Eos # (Auto) 0.2 th/mm3 (0.0-0.4); Eos % (Auto) 1.5 % (0.0-4.0); Hematocrit 24.9 % (35.0-46.0); Lymph # (Auto) 2.7 th/mm3 (1.0-4.8); Lymph % (Auto) 19.6 % (9.0-44.0); Mean Corpuscular Hemoglobin 17.4 pg (27.0-34.0); Mean Corpuscular Volume 63.3 fL (80.0-100.0); Mono # (Auto) 1.1 th/mm3 (0.0-0.9); Mono % (Auto) 7.8 % (0.0-8.0); Neut # (Auto) 8.7 th/mm3 (1.8-7.7); Neut % (Auto) 63.5 % (16.0-70.0); Platelet Count 423 th/mm3 (150-450); Red Blood Count 3.92 mil/mm3 (4.00-5.30); White Blood Count 13.7 th/mm3 (4.0-11.0)
[2017-11-28 04:40] LABS: Chloride 101 meq/L (98-107); Mean Corpuscular HGB Conc 27.4 % (32.0-36.0); Potassium 4.2 meq/L (3.5-5.1); Sodium 138 meq/L (136-145)
[2017-11-28 04:42] LABS: Hemoglobin 6.8 gm/dL (11.6-15.3)
[2017-11-28 04:43] LABS: Anion Gap 7 meq/L (5-15); Blood Urea Nitrogen 9 mg/dL (7-18); Carbon Dioxide 30.3 meq/L (21.0-32.0)
[2017-11-28 04:52] LABS: Glomerular Filtration Rate Greater Than 89 mL/min (>89); Glucose,Random 127 mg/dL (74-106)
[2017-11-28 05:04] LABS: Eosinophils 2 % (0-4); Lymphocytes 12 % (9-44); Metamyelocytes 1 % (0-1); Monocytes 5 % (0-8); Tallied Nucleated RBC 1 (0-0)
[2017-11-28 05:05] LABS: Ovalocytes 1+; Tear Drop Cells 1+
[2017-11-28 05:06] LABS: Platelet Morphology Normal (Normal)
[2017-11-28] MEDS ORDERED: Acetaminophen 325 MG Tablet PO PRN (05:31)
[2017-11-28] MEDS ORDERED: Sodium Chlor 0.9% Inj 250 ML IV.SIG SCH (06:00)
[2017-11-28] MEDS: Acetaminophen 325 MG Tablet PO PRN ×2 (07:35→23:43)
--- NOTE | 2017-11-28 09:34 | P.PNIM ---
Subjective Interval history: Patient seen and evaluated in follow-up for severe anemia. Endoscopy scheduled for this afternoon. Hemoglobin of 6.8. Fourth unit of packed red blood cells pending today. Physical Exam Vital signs: Vital Signs 11/27/17 12:00 11/27/17 16:00 11/27/17 20:00 Temperature Pulse Rate 88 86 90 Respiratory Rate 23 32 H 22 Blood Pressure 110/53 L 119/60 142/62 H Pulse Oximetry 92 L 92 L 96 11/27/17 20:32 11/27/17 20:50 11/28/17 00:00 Temperature 98.6 F 99.8 F H 97.9 F Pulse Rate 84 80 96 H Respiratory Rate 20 20 22 Blood Pressure 142/62 H 134/60 138/63 Pulse Oximetry 97 97 11/28/17 07:00 11/28/17 08:00 11/28/17 08:30 Temperature 100.5 F H 98.9 F Pulse Rate 107 H 102 H Respiratory Rate 22 22 Blood Pressure 136/70 102/60 Pulse Oximetry 95 97 94 L 11/28/17 08:36 11/28/17 08:45 11/28/17 08:51 Temperature 98.9 F 98.9 F 98.9 F Pulse Rate 103 H 100 H 101 H Respiratory Rate 22 18 Blood Pressure 102/60 143/57 H 143/57 H Pulse Oximetry 96 95 97 11/28/17 09:00 Temperature Pulse Rate 99 H Respiratory Rate Blood Pressure Pulse Oximetry Intake & Output 11/27/17 11/28/17 11/28/17 18:59 06:59 18:59 Intake Total 1440 / 1440 210 / 210 0 / 0 Output Total 2150 / 2150 Balance -710 / -710 210 / 210 0 / 0 Weight 197.6 kg 203.9 kg Intake: IV 210 / 210 Venofer Inj 200 MG In NS Inj 110 / 110 100 ML @ 110 mls/hr IV.SIG Q24H OZZY Rx#:[id number] Rocephin Inj 1,000 MG In NS Inj 100 / 100 100 ML @ 200 mls/hr IV.SIG Q24H OZZY Rx#:[id number] Oral 1440 / 1440 Intake (Blood Product) Amt 0 / 0 0 / 0 0 / 0 Rbc As-3 Leukoreduced Unit 0 / 0 [id number] Rbc As-3 Leukoreduced Unit 0 / 0 [id number] Rbc As-3 Leukoreduced Unit 0 / 0 [id number] Rbc As-3 Leukoreduced Unit 0 / 0 [id number] Output: Urine 500 / 500 Urine Amount (Catheter) 1650 / 1650 Indwelling Urethral Catheter 1649 / 1650 Other: # Voids 3 Date of Last Bowel Movement 11/27/17 11/28/17 11/28/17 # Bowel Movements 3 Weight On Admission 200 kg Narrative: GENERAL: Patient calm resting and without complaints less pale SKIN: Warm and dry. No rashes or ecchymotic injuries EYES: Pupils equal and round. No scleral icterus. No injection or drainage. ENT: External ear exam normal. No acute nasal bleeding or discharge. Mucous membranes pink and moist. CARDIOVASCULAR: Regular rate and rhythm. No murmurs gallops or rubs appreciated RESPIRATORY: Good air flow and effort without accessory muscle use. Clear to auscultation. Breath sounds equal bilaterally. GASTROINTESTINAL: Large pannus with left greater than right pannicular edema, otherwise abdomen soft, non-tender, nondistended. Hepatic and splenic margins not palpable. MUSCULOSKELETAL: Extremities without clubbing, cyanosis, or edema. No obvious deformities. NEUROLOGICAL: Awake and alert. No obvious cranial nerve deficits. Motor grossly within normal limits. Five out of 5 muscle strength in the arms and legs. Normal speech. - Urinary Catheter Management Indwelling Urethral Catheter Cath placed during this visit: yes Reason for continuing: Hourly intake/output Insertion date: 11/27/17 Insertion time: 02:36 Results - Labs CBC & Chem 7: 11/28/17 04:15 11/28/17 04:15 Laboratory Results - last 24 hr 11/27/17 11/27/17 11/27/17 03:11 04:08 13:05 CBC w Diff WBC RBC Hgb 5.6 L* Hct 19.8 L* MCV MCH MCHC RDW Plt Count MPV Neut % (Auto) Lymph % (Auto) Long % (Auto) Eos % (Auto) Baso % (Auto) Neut # (Auto) Lymph # (Auto) Long # (Auto) Eos # (Auto) Baso # (Auto) WBC Differential Seg Neuts % (Manual) Band Neuts % (Manual) Lymphocytes % (Manual) Monocytes % (Manual) Eosinophils % (Manual) Metamyelocytes % (Man) Abs Neuts (Manual) Nucleated RBCs/100 WBC Differential Comment Platelet Estimate Platelet Morphology Tear Drop Cells Ovalocytes Keratocytes Sodium Potassium Chloride Carbon Dioxide Anion Gap BUN Creatinine Estimated GFR Random Glucose Calcium TSH 1.290 MTS Gel Crossmatch See Detail 11/27/17 11/28/17 11/28/17 16:24 04:15 04:15 CBC w Diff Slide review pending WBC 13.7 H RBC 3.92 L Hgb 6.8 L* Hct 24.9 L MCV 63.3 L D MCH 17.4 L MCHC 27.4 L RDW 28.0 H D Plt Count 423 MPV 8.0 Neut % (Auto) 63.5 Lymph % (Auto) 19.6 Long % (Auto) 7.8 Eos % (Auto) 1.5 Baso % (Auto) 7.6 H Neut # (Auto) 8.7 H Lymph # (Auto) 2.7 Long # (Auto) 1.1 H Eos # (Auto) 0.2 Baso # (Auto) 1.0 H WBC Differential Manual diff final Seg Neuts % (Manual) 79 H Band Neuts % (Manual) 1 Lymphocytes % (Manual) 12 Monocytes % (Manual) 5 Eosinophils % (Manual) 2 Metamyelocytes % (Man) 1 Abs Neuts (Manual) 11.1 H Nucleated RBCs/100 WBC 1 H Differential Comment . Platelet Estimate High H Platelet Morphology Normal Tear Drop Cells 1+ H Ovalocytes 1+ H Keratocytes 1+ H Sodium 138 Potassium 4.2 Chloride 101 Carbon Dioxide 30.3 Anion Gap 7 BUN 9 Creatinine 0.65 Estimated GFR Greater than 89 Random Glucose 127 H Calcium 8.0 L TSH MTS Gel Crossmatch See Detail 11/28/17 05:31 CBC w Diff WBC RBC Hgb Hct MCV MCH MCHC RDW Plt Count MPV Neut % (Auto) Lymph % (Auto) Long % (Auto) Eos % (Auto) Baso % (Auto) Neut # (Auto) Lymph # (Auto) Long # (Auto) Eos # (Auto) Baso # (Auto) WBC Differential Seg Neuts % (Manual) Band Neuts % (Manual) Lymphocytes % (Manual) Monocytes % (Manual) Eosinophils % (Manual) Metamyelocytes % (Man) Abs Neuts (Manual) Nucleated RBCs/100 WBC Differential Comment Platelet Estimate Platelet Morphology Tear Drop Cells Ovalocytes Keratocytes Sodium Potassium Chloride Carbon Dioxide Anion Gap BUN Creatinine Estimated GFR Random Glucose Calcium TSH MTS Gel Crossmatch See Detail Microbiology 11/26/17 22:10 Clean Catch Urine Urine Culture - Preliminary Results Pending - Imaging Impressions Pelvis Ultrasound 11/27/17 00:00 CONCLUSION: 1. Heterogeneous uterus. The endometrium measures 8 mm which is too thick for a postmenopausal female but can be within normal limits for a menstruating female. The patient reports her last menstrual period was in September 2017. 2. The ovaries are not seen. No adnexal mass is seen. Assessment and Plan - Assessment (1) Anemia Code(s): D64.9 - Anemia, unspecified Status: Acute Plan: Status post 4 units packed red blood cells, hemoglobin 6.8 today Patient also will benefit from IV iron 3 doses GI consult appreciated, endoscopy this afternoon pelvic ultrasound unremarkable Normal TSH (2) Abdominal pain Code(s): R10.9 - Unspecified abdominal pain Status: Acute Plan: Etiology unclear at this time. Patient feels there is fluid in abdomen but on my review of the CAT scan and on radiology review there does not appear to be any ascites. She does have some edema in her pannus. This is discussed at length with the patient Patient feels better after Lasix (3) Weakness Code(s): R53.1 - Weakness Status: Acute Plan: Continue with PT efforts Bariatric walker requested Patient education (4) Respiratory insufficiency Code(s): R06.89 - Other abnormalities of breathing Status: Acute Plan: With hypoventilation and hypoxemia Continue oxygen Respiratory follow-up Lasix and follow-up to the echo (5) UTI (urinary tract infection) Code(s): N39.0 - Urinary tract infection, site not specified Status: Acute Plan: Cultures pending, continue Rocephin empirically - Plan Discharge Planning: Home 1-2 days pending progress (1) Anemia Qualifiers: Anemia type: iron deficiency Iron deficiency anemia type: unspecified iron deficiency Qualified Code(s): D50.9 - Iron deficiency anemia, unspecified
[2017-11-28] MEDS ORDERED: Chlorhexidine Gluconate 2% 1 Pack (2 Cloths) TOPICAL SCH (16:30)
[2017-11-28] MEDS ORDERED: Metoprolol Tartrate 25 MG Tablet PO SCH (16:30)
[2017-11-28] MEDS ORDERED: Sodium Chlor 0.9% Inj 500 ML IV.SIG SCH (17:00)
--- NOTE | 2017-11-28 17:32 | GIPROC ---
[address], [address] EGD PROCEDURE REPORT EXAM DATE: 11/28/2017 PATIENT NAME: Guerline Haynes MR #: [id number] BIRTHDATE: 1965 ATTENDING: Ana Hager MD ORDER #: [id number] MACHINE MOLDER SQUEEZE: Luis Melendez STATUS: inpatient INDICATIONS: The patient is a 52 yr old female here for an EGD due to anemia PROCEDURE PERFORMED: EGD w/ biopsy MEDICATIONS: None and Per Anesthesia. TOPICAL ANESTHETIC: none CONSENT: The patient understands the risks and benefits of the procedure and understands that these risks include, but are not limited to: sedation, allergic reaction, infection, perforation and/or bleeding. Alternative means of evaluation and treatment include, among others: physical exam, x-rays, and/or surgical intervention. The patient elects to proceed with this endoscopic procedure. medical equipment was checked for proper function. Hand hygiene and appropriate measures for infection prevention was taken. After the risks, benefits and alternatives of the procedure were thoroughly explained, Informed consent was verified, confirmed and timeout was successfully executed by the treatment team. The patient was anesthetized with topical anesthesia and the EC-3490Li (Pedi C) endoscope was introduced through the mouth and advanced to the second portion of the duodenum. Retroflexed views revealed no abnormalities The gastroscope was then slowly withdrawn and removed. Significant gastritis in the antrum with few ulcerations biopsy was done. The endoscopy was otherwise normal. ADVERSE EVENTS: There were no complications. IMPRESSIONS: 1. Significant gastritis in the antrum with few ulcerations biopsy was done 2. Normal endoscopy otherwise 3. Retroflexed views revealed no abnormalities RECOMMENDATIONS: 1. Await biopsy results. Biopsy results will not be ready for 7-10 days. If you don't hear from us in two weeks, call our office for biopsy results. 2. Anti-reflux regimen 3. Continue PPI 4. Avoid NSAIDS PATIENT CONDITION: stable DISPOSITION: Inpatient REPEAT EXAM: NONE Ana Hager MD eSigned: Ana Hager MD 11/28/2017 5:32 PM cc:
--- NOTE | 2017-11-28 17:34 | GIPROC ---
[facility] [address] [place] [address], [id number] COLONOSCOPY PROCEDURE REPORT EXAM DATE: 11/28/2017 PATIENT NAME: Guerline Haynes MR #: [id number] BIRTHDATE: 1965 ENDOSCOPIST: Ana Hager MD ORDER #: [id number] ADMINISTRATIVE REPRESENTATIVE: Luis Melendez STATUS: inpatient INDICATIONS: The patient is a 52 yr old female here for a colonoscopy due to anemia, non-specific PROCEDURE PERFORMED: Colonoscopy, incomplete MEDICATIONS: None and Per Anesthesia. PREP QUALITY: poor ESTIMATED BLOOD LOSS: None CONSENT: The patient understands the risks and benefits of the procedure and understands that these risks include, but are not limited to: sedation, allergic reaction, infection, perforation and/or bleeding. Alternative means of evaluation and treatment include, among others: physical exam, x-rays, and/or surgical intervention. The patient elects to proceed with this endoscopic procedure. medical equipment was checked for proper function. Hand hygiene and appropriate measures for infection prevention was taken. After the risks, benefits and alternatives of the procedure were thoroughly explained, Informed consent was verified, confirmed and timeout was successfully executed by the treatment team. A digital exam revealed no abnormalities of the rectum The Pentax EC-3490Li endoscope was introduced through the anus and advanced to the sigmoid colon. The instrument was then slowly withdrawn as the colon was fully examined. COLON FINDINGS: Exam to the sigmoid, the sigmoid was full of solid stool unable to pass the scope beyond this area blindly so the procedure was terminated. Retroflexed views revealed no abnormalities The scope was then completely withdrawn from the patient and the procedure terminated. ADVERSE EVENTS: There were no complications. IMPRESSIONS: 1. Exam to the sigmoid, the sigmoid was full of solid stool unable to pass the scope beyond this area blindly so the procedure was terminated 2. Retroflexed views revealed no abnormalities 3. Revealed no abnormalities of the rectum RECOMMENDATIONS: Longer prep and repeat colonoscopy in few days RECALL: Ana Hager MD eSigned: Ana Hager MD 11/28/2017 5:34 PM cc:
--- NOTE | 2017-11-28 17:37 | P.PNGI ---
Subjective Interval history: Laying in bed, seems to be comfortable, she stated that she took her prep, no active bleeding Physical Exam Vital signs: Vital Signs 11/27/17 20:00 11/27/17 20:32 11/27/17 20:50 Temperature 98.6 F 99.8 F H Pulse Rate 90 84 80 Respiratory Rate 22 20 20 Blood Pressure 142/62 H 142/62 H 134/60 Pulse Oximetry 96 97 11/28/17 00:00 11/28/17 07:00 11/28/17 08:00 Temperature 97.9 F 100.5 F H Pulse Rate 96 H 107 H Respiratory Rate 22 22 Blood Pressure 138/63 136/70 Pulse Oximetry 97 95 97 11/28/17 08:30 11/28/17 08:36 11/28/17 08:45 Temperature 98.9 F 98.9 F 98.9 F Pulse Rate 102 H 103 H 100 H Respiratory Rate 22 22 18 Blood Pressure 102/60 102/60 143/57 H Pulse Oximetry 94 L 96 95 11/28/17 08:51 11/28/17 09:00 11/28/17 10:34 Temperature 98.9 F Pulse Rate 101 H 99 H Respiratory Rate Blood Pressure 143/57 H Pulse Oximetry 97 98 11/28/17 11:12 11/28/17 16:02 Temperature 99.4 F 98.2 F Pulse Rate 99 H 92 H Respiratory Rate 16 20 Blood Pressure 143/71 H 130/54 L Pulse Oximetry 94 L 98 Intake & Output 11/27/17 11/28/17 11/28/17 18:59 06:59 18:59 Intake Total 1440 / 1440 210 / 210 0 / 0 Output Total 2150 / 2150 900 / 900 Balance -710 / -710 210 / 210 -900 / -900 Weight 197.6 kg 203.9 kg Intake: IV 210 / 210 Venofer Inj 200 MG In NS Inj 110 / 110 100 ML @ 110 mls/hr IV.SIG Q24H OZZY Rx#:[id number] Rocephin Inj 1,000 MG In NS Inj 100 / 100 100 ML @ 200 mls/hr IV.SIG Q24H OZZY Rx#:[id number] Oral 1440 / 1440 Intake (Blood Product) Amt 0 / 0 0 / 0 0 / 0 Rbc As-3 Leukoreduced Unit 0 / 0 [id number] Rbc As-3 Leukoreduced Unit 0 / 0 [id number] Rbc As-3 Leukoreduced Unit 0 / 0 [id number] Rbc As-3 Leukoreduced Unit 0 / 0 [id number] Output: Urine 500 / 500 900 / 900 Urine Amount (Catheter) 1650 / 1650 Indwelling Urethral Catheter 1650 / 1650 Other: # Voids 3 Date of Last Bowel Movement 11/27/17 11/28/17 11/28/17 # Bowel Movements 3 Weight On Admission 200 kg - Constitutional no acute distress - Routine HEENT Exam Head: Present: normocephalic Eye: Present: EOMI - Routine Respiratory Exam Present: accessory muscle use - Routine Cardiovascular Exam Present: RRR - Routine Abdominal Exam Present: soft (Positive bowel sounds, obese) - Urinary Catheter Management Indwelling Urethral Catheter Cath placed during this visit: yes Reason for continuing: Hourly intake/output Insertion date: 11/27/17 Insertion time: 02:36 Results - Labs CBC & Chem 7: 11/28/17 04:15 11/28/17 04:15 Laboratory Results - last 24 hr 11/27/17 11/27/17 11/28/17 04:08 16:24 04:15 CBC w Diff Slide review pending WBC 13.7 H RBC 3.92 L Hgb 6.8 L* Hct 24.9 L MCV 63.3 L D MCH 17.4 L MCHC 27.4 L RDW 28.0 H D Plt Count 423 MPV 8.0 Neut % (Auto) 63.5 Lymph % (Auto) 19.6 Snyder % (Auto) 7.8 Eos % (Auto) 1.5 Baso % (Auto) 7.6 H Neut # (Auto) 8.7 H Lymph # (Auto) 2.7 Snyder # (Auto) 1.1 H Eos # (Auto) 0.2 Baso # (Auto) 1.0 H WBC Differential Manual diff final Seg Neuts % (Manual) 79 H Band Neuts % (Manual) 1 Lymphocytes % (Manual) 12 Monocytes % (Manual) 5 Eosinophils % (Manual) 2 Metamyelocytes % (Man) 1 Abs Neuts (Manual) 11.1 H Nucleated RBCs/100 WBC 1 H Differential Comment . Platelet Estimate High H Platelet Morphology Normal Tear Drop Cells 1+ H Ovalocytes 1+ H Keratocytes 1+ H Sodium Potassium Chloride Carbon Dioxide Anion Gap BUN Creatinine Estimated GFR Random Glucose Calcium MTS Gel Crossmatch See Detail See Detail 11/28/17 11/28/17 04:15 05:31 CBC w Diff WBC RBC Hgb Hct MCV MCH MCHC RDW Plt Count MPV Neut % (Auto) Lymph % (Auto) Snyder % (Auto) Eos % (Auto) Baso % (Auto) Neut # (Auto) Lymph # (Auto) Snyder # (Auto) Eos # (Auto) Baso # (Auto) WBC Differential Seg Neuts % (Manual) Band Neuts % (Manual) Lymphocytes % (Manual) Monocytes % (Manual) Eosinophils % (Manual) Metamyelocytes % (Man) Abs Neuts (Manual) Nucleated RBCs/100 WBC Differential Comment Platelet Estimate Platelet Morphology Tear Drop Cells Ovalocytes Keratocytes Sodium 138 Potassium 4.2 Chloride 101 Carbon Dioxide 30.3 Anion Gap 7 BUN 9 Creatinine 0.65 Estimated GFR Greater than 89 Random Glucose 127 H Calcium 8.0 L MTS Gel Crossmatch See Detail Microbiology 11/26/17 22:10 Clean Catch Urine Urine Culture - Final No growth. Assessment and Plan - Plan Significant anemia, unclear etiology, still no sign of active bleeding, Had an upper endoscopy which showed gastritis with small ulcerations Incomplete colonoscopy only to the sigmoid was significant stool unable to pass the scope beyond that area Recommendation to continue monitoring H&H and packed RBC as needed Patient will need colonoscopy in few days During the procedure patient had bradycardia transit that resolved spontaneously
[2017-11-28] MEDS: Iron Sucrose Inj 200 MG in Sodium Chlor 0.9% Inj 100 ML IV.SIG SCH (20:33)
[2017-11-28 20:54] LABS: Hematocrit 28.2 % (35.0-46.0); Hemoglobin 7.8 gm/dL (11.6-15.3)
[2017-11-29] MEDS: Acetaminophen 325 MG Tablet PO PRN ×2 (06:46→17:53)
[2017-11-29 07:01] LABS: Hematocrit 28.8 % (35.0-46.0); Hemoglobin 7.7 gm/dL (11.6-15.3); Mean Platelet Volume 8.2 fL (7.0-11.0); Platelet Count 385 th/mm3 (150-450); White Blood Count 16.6 th/mm3 (4.0-11.0)
[2017-11-29 07:12] LABS: Potassium 4.1 meq/L (3.5-5.1)
[2017-11-29 07:25] LABS: Mean Corpuscular HGB Conc 26.8 % (32.0-36.0)
[2017-11-29] MEDS: Senna/Docusate Sodium 8.6/50 MG Tablet PO SCH ×2 (09:00→21:05)
--- NOTE | 2017-11-29 09:14 | P.PNIM ---
Subjective Interval history: Patient seen and evaluated today in follow-up for anemia. Colonoscopy will need to be repeated on Friday. Patient today complaining of bladder fullness and inability to empty her bladder. Care plan discussed with patient and nursing team Physical Exam Vital signs: Vital Signs 11/28/17 10:34 11/28/17 11:12 11/28/17 12:15 Temperature 99.4 F 99.1 F Pulse Rate 99 H 93 H Respiratory Rate 16 20 Blood Pressure 143/71 H 135/78 Pulse Oximetry 98 94 L 97 11/28/17 16:02 11/28/17 17:39 11/28/17 18:00 Temperature 98.2 F 98.4 F Pulse Rate 92 H 93 H 88 Respiratory Rate 20 18 16 Blood Pressure 130/54 L 137/74 147/76 H Pulse Oximetry 98 92 L 95 11/28/17 18:10 11/28/17 18:45 11/28/17 20:00 Temperature 99.2 F 96.2 F L Pulse Rate 89 98 H 87 Respiratory Rate 16 20 20 Blood Pressure 139/64 130/79 119/67 Pulse Oximetry 97 98 97 11/28/17 23:55 11/29/17 00:00 11/29/17 07:34 Temperature 98.5 F 97.6 F Pulse Rate 94 H 90 Respiratory Rate 20 20 Blood Pressure 118/62 128/59 L Pulse Oximetry 95 93 L 95 11/29/17 07:46 11/29/17 08:55 Temperature Pulse Rate Respiratory Rate 2 L Blood Pressure Pulse Oximetry 93 L Intake & Output 11/28/17 11/29/17 11/29/17 18:59 06:59 18:59 Intake Total 0 / 0 410 / 410 1000 / 1000 Output Total 1500 / 1500 Balance -1500 / -1500 410 / 410 1000 / 1000 Weight 203.5 kg Intake: IV 410 / 410 Venofer Inj 200 MG In NS Inj 110 / 110 100 ML @ 110 mls/hr IV.SIG Q24H OZZY Rx#:[id number] LR 1000 mL Inj 1,000 ML @ 30 300 / 300 mls/hr IV.SIG .Q24H OZZY Rx#: [id number] Oral 1000 / 1000 Intake (Blood Product) Amt 0 / 0 Rbc As-3 Leukoreduced Unit 0 / 0 [id number] Output: Urine 1500 / 1500 Other: # Voids 0 Date of Last Bowel Movement 11/28/17 11/27/17 # Incontinent Bowel Movements 1 - Urinary Catheter Management Indwelling Urethral Catheter Cath placed during this visit: yes Reason for continuing: Hourly intake/output Insertion date: 11/27/17 Insertion time: 02:36 Results - Labs CBC & Chem 7: 11/29/17 05:53 11/29/17 05:53 Laboratory Results - last 24 hr 11/28/17 11/28/17 11/29/17 05:31 20:40 05:53 WBC 16.6 H RBC 4.30 Hgb 7.8 L 7.7 L Hct 28.2 L 28.8 L MCV 67.0 L D MCH 18.0 L MCHC 26.8 L RDW 29.0 H Plt Count 385 MPV 8.2 Sodium Potassium Chloride Carbon Dioxide Anion Gap BUN Creatinine Estimated GFR Random Glucose Calcium MTS Gel Crossmatch See Detail 11/29/17 05:53 WBC RBC Hgb Hct MCV MCH MCHC RDW Plt Count MPV Sodium 138 Potassium 4.1 Chloride 98 Carbon Dioxide 32.0 Anion Gap 8 BUN 13 Creatinine 0.70 Estimated GFR 87 L Random Glucose 111 H Calcium 8.0 L MTS Gel Crossmatch Microbiology 11/26/17 22:10 Clean Catch Urine Urine Culture - Final No growth. Assessment and Plan - Assessment (1) Anemia Code(s): D64.9 - Anemia, unspecified Status: Acute Plan: Status post 4 units packed red blood cells, hemoglobin 7.7 today Status post IV iron GI consult appreciated, endoscopy yesterday shows gastritis with a few ulcerations and otherwise normal, colonoscopy to be repeated on Friday secondary to incomplete prep pelvic ultrasound unremarkable Normal TSH (2) Abdominal pain Code(s): R10.9 - Unspecified abdominal pain Status: Acute Plan: Pannicular edema likely. Continue with Lasix and encourage ambulation (3) Weakness Code(s): R53.1 - Weakness Status: Acute Plan: Continue with PT efforts Bariatric walker requested Patient education (4) Respiratory insufficiency Code(s): R06.89 - Other abnormalities of breathing Status: Acute Plan: With hypoventilation and hypoxemia Continue oxygen Respiratory follow-up Lasix a (5) UTI (urinary tract infection) Code(s): N39.0 - Urinary tract infection, site not specified Status: Acute Plan: Cultures negative, DC Rocephin (6) Pulmonary hypertension Code(s): I27.20 - Pulmonary hypertension, unspecified Status: Acute Plan: PA pressures 75. Continue Lasix Patient education provided Patient will need follow-up - Plan Discharge Planning: Home likely Friday postprocedure (1) Anemia Qualifiers: Anemia type: iron deficiency Iron deficiency anemia type: unspecified iron deficiency Qualified Code(s): D50.9 - Iron deficiency anemia, unspecified
[2017-11-29] MEDS ORDERED: Aluminum/Magnesium/Simethacone Susp 30 ML UDC PO PRN (18:57)
[2017-11-29] MEDS: Iron Sucrose Inj 200 MG in Sodium Chlor 0.9% Inj 100 ML IV.SIG SCH ×2 (21:05→21:53)
[2017-11-30] MEDS: Temazepam 15 MG Capsule PO PRN (00:44)
[2017-11-30] MEDS: ALPRAZolam 0.5 MG Tablet PO PRN ×2 (04:20→15:14)
[2017-11-30 06:59] LABS: Hematocrit 25.2 % (35.0-46.0); Hemoglobin 7.1 gm/dL (11.6-15.3); Mean Corpuscular Hemoglobin 18.9 pg (27.0-34.0); Mean Corpuscular Volume 66.9 fL (80.0-100.0); Platelet Count 322 th/mm3 (150-450); Red Blood Count 3.77 mil/mm3 (4.00-5.30); Red Cell Distribution Width 31.4 % (11.6-17.2); White Blood Count 13.3 th/mm3 (4.0-11.0)
[2017-11-30 07:10] LABS: Mean Corpuscular HGB Conc 28.2 % (32.0-36.0)
[2017-11-30] MEDS ORDERED: Sodium Chlor 0.9% Inj 250 ML IV.SIG SCH ×2 (08:00→13:00)
--- NOTE | 2017-11-30 08:17 | P.PNIM ---
Subjective Interval history: Patient seen and evaluated today. Complaining of some heartburn yesterday with progressive chest discomfort overnight. EKG is abnormal. Cardiac enzymes are negative but slightly elevated from last. Discussed with patient and nursing team. Hemoglobin 7.1 Physical Exam Vital signs: Vital Signs 11/29/17 08:55 11/29/17 09:00 11/29/17 11:17 Temperature 96.8 F L Pulse Rate 84 Respiratory Rate 2 L 20 Blood Pressure 129/61 Pulse Oximetry 95 96 11/29/17 15:13 11/29/17 19:42 11/29/17 20:00 Temperature 97.2 F L 99 F Pulse Rate 80 84 Respiratory Rate 20 18 Blood Pressure 134/63 134/64 Pulse Oximetry 95 98 98 11/30/17 00:00 11/30/17 07:43 Temperature 99.6 F 96.6 F L Pulse Rate 83 74 Respiratory Rate 18 20 Blood Pressure 135/60 122/59 L Pulse Oximetry 93 L 100 Intake & Output 11/29/17 11/30/17 11/30/17 18:59 06:59 18:59 Intake Total 2510 / 2510 1810 / 1810 Output Total 1100 / 1100 Balance 1410 / 1410 1810 / 1810 Weight 203.5 kg Intake: IV 100 / 100 1810 / 1810 Venofer Inj 200 MG In NS Inj 110 / 110 100 ML @ 110 mls/hr IV.SIG Q24H OZZY Rx#:[id number] LR 1000 mL Inj 1,000 ML @ 30 1700 / 1700 mls/hr IV.SIG .Q24H OZZY Rx#: [id number] Oral 2410 / 2410 Output: Urine 1100 / 1100 Other: # Voids 0 Date of Last Bowel Movement 11/27/17 # Incontinent Bowel Movements 1 Narrative: GENERAL: Patient calm resting and without complaints less pale SKIN: Warm and dry. No rashes or ecchymotic injuries EYES: Pupils equal and round. No scleral icterus. No injection or drainage. ENT: External ear exam normal. No acute nasal bleeding or discharge. Mucous membranes pink and moist. CARDIOVASCULAR: Regular rate and rhythm. No murmurs gallops or rubs appreciated RESPIRATORY: Good air flow and effort without accessory muscle use. Clear to auscultation. Breath sounds equal bilaterally. GASTROINTESTINAL: Large pannus with left greater than right pannicular edema, otherwise abdomen soft, non-tender, nondistended. Hepatic and splenic margins not palpable. MUSCULOSKELETAL: Extremities without clubbing, cyanosis, or edema. No obvious deformities. NEUROLOGICAL: Awake and alert. No obvious cranial nerve deficits. Motor grossly within normal limits. Five out of 5 muscle strength in the arms and legs. Normal speech. - Urinary Catheter Management Indwelling Urethral Catheter Cath placed during this visit: yes Reason for continuing: Hourly intake/output Insertion date: 11/27/17 Insertion time: 02:36 Results - Labs CBC & Chem 7: 11/30/17 05:45 11/29/17 05:53 Laboratory Results - last 24 hr 11/30/17 11/30/17 05:45 05:45 WBC 13.3 H RBC 3.77 L Hgb 7.1 L Hct 25.2 L MCV 66.9 L MCH 18.9 L MCHC 28.2 L RDW 31.4 H Plt Count 322 MPV 8.0 Troponin I 0.05 Assessment and Plan - Assessment (1) Anemia Code(s): D64.9 - Anemia, unspecified Status: Acute Plan: Status post 4 units packed red blood cells, hemoglobin trending down to 7.1 today, we will transfuse another unit PRBCs Status post IV iron GI consult appreciated, endoscopy yesterday shows gastritis with a few ulcerations and otherwise normal, colonoscopy to be repeated on Friday secondary to incomplete prep pelvic ultrasound unremarkable Normal TSH (2) Abdominal pain Code(s): R10.9 - Unspecified abdominal pain Status: Acute Plan: Pannicular edema likely. Continue with Lasix and encourage ambulation (3) Weakness Code(s): R53.1 - Weakness Status: Acute Plan: Continue with PT efforts Bariatric walker requested Patient education (4) Respiratory insufficiency Code(s): R06.89 - Other abnormalities of breathing Status: Acute Plan: With hypoxemic resp failure hypoventilation and hypoxemia, pulmonary hypertension right-sided Continue oxygen, pulmonary consult pending Respiratory follow-up Lasix daily (5) Pulmonary hypertension Code(s): I27.20 - Pulmonary hypertension, unspecified Status: Acute Plan: PA pressures 75. Continue Lasix Patient education provided Patient will need follow-up, pulmonary consult pending Continue O2 (6) Chest pain Code(s): R07.9 - Chest pain, unspecified Status: Acute Plan: Etiology unclear, initially improved with Maalox and Protonix since his patient with gastritis on endoscopy) however EKG is abnormal at baseline, cardiac troponin is not negative. Follow-up Lexiscan Cardiology consult pending - Plan Discharge Planning: Pending clinical improve (1) Anemia Qualifiers: Anemia type: iron deficiency Iron deficiency anemia type: unspecified iron deficiency Qualified Code(s): D50.9 - Iron deficiency anemia, unspecified
[2017-11-30] MEDS: Senna/Docusate Sodium 8.6/50 MG Tablet PO SCH ×2 (08:22→21:12)
--- NOTE | 2017-11-30 08:39 | XR ---
EXAM DATE: 11/30/2017 8:36 AM EDT AGE/SEX: 52 years / Female INDICATIONS: Chest pains, short of breath CLINICAL DATA: This is the patient's subsequent encounter. Patient reports that signs and symptoms h ave been present for 3 days and indicates a pain score of 7/10. MEDICAL/SURGICAL HISTORY: None. None. COMPARISON: [facility], CHEST 1V SINGLE AP, 11/26/2017. . FINDINGS: 2 portable views of the chest demonstrate severe enlargement of the cardiac silhouette with diffuse c ephalization of pulmonary vasculature. Right basilar atelectasis. CONCLUSION: Significant cardiomegaly with radiographic findings of congestive heart failure and pulmonary edema. Electronically signed by: Belkis Sifuentes MD 11/30/2017 8:38 AM EDT
[2017-11-30] MEDS: Acetaminophen 325 MG Tablet PO PRN ×3 (12:34→17:13)
[2017-11-30] MEDS ORDERED: PEG 3350/E-Lyte Soln 4000 ML Bottle PO ONE (17:00)
--- NOTE | 2017-11-30 18:50 | MB ---
cc: Karson Rand MD DATE: 11/30/2017 REQUESTING PHYSICIAN: Dr. Kimberly Angulo REASON FOR CONSULTATION: Evaluate for pulmonary hypertension, shortness of breath. HISTORY OF PRESENT ILLNESS: Ms. Haynes is a morbidly obese 52-year-old female who has not seen a physician for more than 30 years. The patient stated that she took a fall 4 months ago. After that, she has gone downhill. She has gained more weight and she apparently walks 25 feet and gets short of breath. Denies any chest pain. No nausea or vomiting. The patient was feeling more short of breath, came to the emergency room. She was found to have hemoglobin of 4.4. The patient is being transfused with blood. She had EGD done, which shows mild gastritis. She is waiting for the colonoscopy. She had echocardiogram done, which shows her EF is 55-60% and RVSP is 75. She does admit to difficulty sleeping, snores a lot, feels tired even during the daytime and also has some headache. She has gained more weight. Denies any joint pain, no rheumatoid arthritis, lupus, no connective tissue disorder. PAST MEDICAL HISTORY: Unremarkable. She has not seen a physician for 30 years. MEDICATIONS AT HOME: She does not take any medications. Currently, she is taking Xanax 0.5 mg q. 8 hours, Lasix 40 mg IV, lactated Ringer's, metoprolol 25 mg, nitroglycerin p.r.n., temazepam 15 mg and she is receiving blood transfusion. ALLERGIES: NO KNOWN DRUG ALLERGIES. SOCIAL HISTORY: She is single, never , lives with her niece. 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 No smoking or alcohol abuse. FAMILY HISTORY: Both parents are . She had 1 brother who . REVIEW OF SYSTEMS: She barely walks 25 feet or so, has gained weight, has excessive sleepiness, feels tired. PHYSICAL EXAMINATION: GENERAL: Morbidly obese female, not in any acute distress at rest. VITAL SIGNS: Her blood pressure 126/59, heart rate 70, respirations 19, temperature 96.2. Her weight is 203.5 kg. Her BMI is 66. HEENT: Unremarkable. NECK: Supple. JVD noted. CHEST: Clear to auscultation bilaterally. No rhonchi. HEART: S1, S2. ABDOMEN: Obese, nontender. Bowel sounds are present. EXTREMITIES: No edema. LABORATORY DATA: Her hemoglobin initially 4.4, now 7.1. WBC count 13.3, hematocrit 25.2, MCV 66, platelet count 322. Sodium 130, potassium 4.1, chloride 98, CO2 32, BUN 13, creatinine 0.7. IMPRESSION: 1. Shortness of breath and pulmonary hypertension. She is morbidly obese and symptoms are suggestive of underlying restrictive disease and sleep apnea. 2. Severe anemia. 3. Dyspnea. 4. Morbid obesity. 5. Hypertension. PLAN: The patient will receive blood transfusion. GI workup is underway. We will check a pulmonary function study. She will need a sleep study as outpatient. Further treatment will depend upon the course in the hospital. Thank you, Dr. Kimberly Angulo, for this consult. MD KIRAN Wells/BENITA , 06:23 PM , 06:48 PM [facility]
--- NOTE | 2017-11-30 23:10 | MB ---
cc: Oz Rosales MD DATE: 11/30/2017 REASON FOR CONSULTATION: Possible chest pain, HISTORY OF PRESENT ILLNESS: Mrs. Haynes is a 52-year-old female with history of morbid obesity, apparently history also of high blood pressure, admitted due to vaginal bleeding and abdominal fullness. She was diagnosed with anemia. A GI procedure was scheduled. In hospitalization, developed "chest discomfort". Troponin negative. No acute ST changes. I was consulted for evaluation and management. The chart was reviewed. The patient was evaluated. ALLERGIES: NONE REPORTED. SOCIAL HISTORY: The patient is negative for smoking and drinking. FAMILY HISTORY: Noncontributory to her current medical condition. MEDICATIONS: She is on acetaminophen, she is on Xanax, Doc-Q-Lace, Lasix p.r.n., Zofran. REVIEW OF SYSTEMS: She referred feeling better. No chest pain, no chest discomfort. PHYSICAL EXAMINATION: GENERAL: Alert, fully oriented, in bed. VITAL SIGNS: Blood pressure 128/67, pulse 74, respiratory rate 20. LUNGS: Ventilated. CARDIOVASCULAR: S1, S2. No gallop. No murmur. ABDOMEN: Obese. No masses. EXTREMITIES: No edema. ELECTROCARDIOGRAM: Indicates sinus rhythm. No acute ST and T-wave changes, poor R-wave progression. LABORATORY DATA: Hemoglobin is 7.1, it was 5.6 on hospitalization. White blood cell 13. INR 1.1. Potassium 4.1, creatinine 0.70. Troponin 0.03. ASSESSMENT AND RECOMMENDATIONS: Mrs. Haynes has significant anemia. Previous endoscopy and colonoscopy was performed. No active bleeding found. Colonoscopy was incomplete. The scope cannot go beyond the sigmoid because of stool. Hemoglobin currently is 7.1, coming down from 7.8 on the . She is receiving colon prep medication. She was complaining of discomfort yesterday. She states she feels like a sharp pain in her chest. Troponin negative. Electrocardiogram showed no acute ST changes. A 2D echo showed normal ejection fraction. The patient has significant anemia also. At this point, my recommendation is to continue with current medical management. Proceed with colonoscopy. We will follow the patient during hospitalization. Oz Roslaes MD / , 10:15 PM , 11:07 PM
[2017-12-01 05:03] LABS: Chloride 95 meq/L (98-107); Potassium 3.9 meq/L (3.5-5.1); Sodium 137 meq/L (136-145)
[2017-12-01 05:06] LABS: Calcium 8.2 mg/dL (8.5-10.1)
[2017-12-01 05:07] LABS: Albumin 2.7 g/dL (3.4-5.0); Anion Gap 5 meq/L (5-15); Blood Urea Nitrogen 9 mg/dL (7-18); Carbon Dioxide 37.5 meq/L (21.0-32.0); Glucose,Random 120 mg/dL (74-106)
[2017-12-01 05:10] LABS: Alanine Aminotransferase 16 U/L (10-53); Aspartate Aminotransferase 14 U/L (15-37); Glomerular Filtration Rate Greater Than 89 mL/min (>89)
[2017-12-01 05:13] LABS: Alkaline Phosphatase 80 U/L (45-117)
--- NOTE | 2017-12-01 07:32 | P.PNCA ---
Subjective Interval history: Pt denies cp, feels tired Physical Exam Vital signs: Vital Signs 11/30/17 07:43 11/30/17 10:32 11/30/17 11:11 Temperature 96.6 F L 96.9 F L Pulse Rate 74 78 Respiratory Rate 20 20 Blood Pressure 122/59 L 128/62 Pulse Oximetry 100 93 L 100 11/30/17 16:03 11/30/17 17:51 11/30/17 18:07 Temperature 97.2 F L 96.8 F L 96.2 F L Pulse Rate 76 72 70 Respiratory Rate 20 18 19 Blood Pressure 134/68 150/68 H 126/59 L Pulse Oximetry 100 100 100 11/30/17 19:07 11/30/17 20:00 11/30/17 20:07 Temperature 97.5 F L 98.3 F 97.2 F L Pulse Rate 70 75 69 Respiratory Rate 20 18 22 Blood Pressure 129/70 144/66 H 133/71 Pulse Oximetry 96 94 L 94 L 11/30/17 20:30 11/30/17 20:40 12/01/17 00:00 Temperature 98 F 98.3 F Pulse Rate 74 74 Respiratory Rate 22 20 Blood Pressure 128/67 132/71 Pulse Oximetry 100 99 12/01/17 04:00 Temperature 98.7 F Pulse Rate 80 Respiratory Rate 18 Blood Pressure 145/68 H Pulse Oximetry 93 L Intake & Output 11/30/17 12/01/17 12/01/17 18:59 06:59 18:59 Intake Total 480 / 480 400 / 400 Output Total 400 / 400 Balance 480 / 480 0 / 0 Intake: Oral 480 / 480 Intake (Blood Product) Amt 0 / 0 400 / 400 Rbc As-3 Leukoreduced Unit 0 / 0 400 / 400 [id number] Output: Urine 400 / 400 Other: # Voids 3 Date of Last Bowel Movement 11/27/17 11/27/17 - Constitutional no acute distress Comments: Morbidly obese - Routine HEENT Exam Head: Present: normocephalic - Routine Respiratory Exam Present: decreased breath sounds - Routine Cardiovascular Exam Present: RRR. Absent: murmur - Routine Abdominal Exam Present: soft - Urinary Catheter Management Indwelling Urethral Catheter Cath placed during this visit: yes Reason for continuing: Hourly intake/output Insertion date: 11/27/17 Insertion time: 02:36 Assessment and Plan - Plan Atypical chest pain; Unfortunately her weight makes non-invasivasive imaging not pragmatic as very unlikely to get a useful result, however with no further chest pain, troponins negative, EKG non-ischemic; I believe the best plan is to continue current medical mgt ok for GI procedures as detailed by Dr. Rosales though the pt's significantly increased weight does increase risk for all procedures. I do not feel that delaying the Pt's necessary GI procedures with cardiac testing (which will unlikely be useful) will decrease her risk. will sign off, pls call with questions.
[2017-12-01] MEDS: Acetaminophen 325 MG Tablet PO PRN ×2 (08:35→23:19)
[2017-12-01] MEDS: Senna/Docusate Sodium 8.6/50 MG Tablet PO SCH ×2 (08:35→21:20)
[2017-12-01 10:24] LABS: Hemoglobin 8.1 gm/dL (11.6-15.3)
--- NOTE | 2017-12-01 10:40 | P.PNIM ---
Subjective Interval history: Patient seen and evaluated today. No events overnight. Chest pain appears to have resolved. She is doing well on the proton pump inhibitor. Cardiology evaluation appreciated. GI endoscopy pending. Hemoglobin 8.1 Physical Exam Vital signs: Vital Signs 11/30/17 11:11 11/30/17 16:03 11/30/17 17:51 Temperature 96.9 F L 97.2 F L 96.8 F L Pulse Rate 78 76 72 Respiratory Rate 20 20 18 Blood Pressure 128/62 134/68 150/68 H Pulse Oximetry 100 100 100 11/30/17 18:07 11/30/17 19:07 11/30/17 20:00 Temperature 96.2 F L 97.5 F L 98.3 F Pulse Rate 70 70 75 Respiratory Rate 19 20 18 Blood Pressure 126/59 L 129/70 144/66 H Pulse Oximetry 100 96 94 L 11/30/17 20:07 11/30/17 20:30 11/30/17 20:40 Temperature 97.2 F L 98 F Pulse Rate 69 74 Respiratory Rate 22 22 Blood Pressure 133/71 128/67 Pulse Oximetry 94 L 100 12/01/17 00:00 12/01/17 04:00 12/01/17 08:00 Temperature 98.3 F 98.7 F 98.7 F Pulse Rate 74 80 81 Respiratory Rate 20 18 18 Blood Pressure 132/71 145/68 H 143/88 H Pulse Oximetry 99 93 L 97 Intake & Output 11/30/17 12/01/17 12/01/17 18:59 06:59 18:59 Intake Total 480 / 480 400 / 400 Output Total 400 / 400 Balance 480 / 480 0 / 0 Intake: Oral 480 / 480 Intake (Blood Product) Amt 0 / 0 400 / 400 Rbc As-3 Leukoreduced Unit 0 / 0 400 / 400 [id number] Output: Urine 400 / 400 Other: # Voids 3 Date of Last Bowel Movement 11/27/17 11/27/17 Narrative: GENERAL: Patient calm resting and without complaints sleepy but easily arousable SKIN: Warm and dry. No rashes or ecchymotic injuries EYES: Pupils equal and round. No scleral icterus. No injection or drainage. ENT: External ear exam normal. No acute nasal bleeding or discharge. Mucous membranes pink and moist. CARDIOVASCULAR: Regular rate and rhythm. No murmurs gallops or rubs appreciated RESPIRATORY: Good air flow and effort without accessory muscle use. Clear to auscultation. Breath sounds equal bilaterally. GASTROINTESTINAL: Large pannus with improvement in pannicular edema a, otherwise abdomen soft, non-tender, nondistended. Hepatic and splenic margins not palpable. MUSCULOSKELETAL: Extremities without clubbing, cyanosis, or edema. No obvious deformities. NEUROLOGICAL: Awake and alert. No obvious cranial nerve deficits. Motor grossly within normal limits. Five out of 5 muscle strength in the arms and legs. Normal speech. - Urinary Catheter Management Indwelling Urethral Catheter Cath placed during this visit: yes Reason for continuing: Hourly intake/output Insertion date: 11/27/17 Insertion time: 02:36 Results - Labs CBC & Chem 7: 12/01/17 04:35 12/01/17 04:35 Laboratory Results - last 24 hr 11/30/17 11/30/17 12/01/17 13:04 17:34 04:35 Hgb Hct Sodium 137 Potassium 3.9 Chloride 95 L Carbon Dioxide 37.5 H Anion Gap 5 BUN 9 Creatinine 0.49 L Estimated GFR Greater than 89 Random Glucose 120 H Calcium 8.2 L Total Bilirubin 0.5 AST 14 L ALT 16 Alkaline Phosphatase 80 Troponin I 0.03 Total Protein 7.0 Albumin 2.7 L Blood Type O Positive Antibody Screen Negative MTS Gel Crossmatch See Detail Bld Prod Order Comment 12/01/17 04:35 Hgb 8.1 L Hct 30.0 L Sodium Potassium Chloride Carbon Dioxide Anion Gap BUN Creatinine Estimated GFR Random Glucose Calcium Total Bilirubin AST ALT Alkaline Phosphatase Troponin I Total Protein Albumin Blood Type Antibody Screen MTS Gel Crossmatch Bld Prod Order Comment - Imaging Impressions Chest X-Ray 11/30/17 00:00 CONCLUSION: Significant cardiomegaly with radiographic findings of congestive heart failure and pulmonary edema. Assessment and Plan - Assessment (1) Anemia Code(s): D64.9 - Anemia, unspecified Status: Acute Plan: Status post 5 units packed red blood cells, hemoglobin improved 8.1 today, Status post IV iron GI consult appreciated, endoscopy yesterday shows gastritis with a few ulcerations and otherwise normal, colonoscopy to be repeated on today secondary to incomplete prep pelvic ultrasound unremarkable Normal TSH (2) Abdominal pain Code(s): R10.9 - Unspecified abdominal pain Status: Acute Plan: Pannicular edema likely. Continue with Lasix and encourage ambulation (3) Weakness Code(s): R53.1 - Weakness Status: Acute Plan: Continue with PT efforts Bariatric walker requested Patient education (4) Respiratory insufficiency Code(s): R06.89 - Other abnormalities of breathing Status: Acute Plan: With hypoxemic resp failure hypoventilation and hypoxemia, pulmonary hypertension right-sided Pulmonary consult appreciated, likely restrictive pulmonary disease. Patient will need PFTs when stable Continue oxygen, follow with respiratory Lasix twice daily (5) Pulmonary hypertension Code(s): I27.20 - Pulmonary hypertension, unspecified Status: Acute Plan: PA pressures 75. Continue Lasix Patient education provided Patient will need follow-up, pulmonary consult appreciate Continue O2 (6) Chest pain Code(s): R07.9 - Chest pain, unspecified Status: Acute Plan: Etiology unclear, initially improved with Maalox and Protonix (patient with gastritis on endoscopy) Lexiscan pending Cardiology consult appreciated Cardiology cleared for endoscopy - Plan Discharge Planning: Pending clinical improve May need home O2 (1) Anemia Qualifiers: Anemia type: iron deficiency Iron deficiency anemia type: unspecified iron deficiency Qualified Code(s): D50.9 - Iron deficiency anemia, unspecified
[2017-12-01] MEDS ORDERED: Regadenoson Inj 0.4 MG/5 ML Syringe IV.PUSH ONE (11:23)
[2017-12-01] MEDS ORDERED: Lidocaine PF 1% Inj 5 ML Syringe INFILTRATN ONE (12:00)
--- NOTE | 2017-12-01 12:04 | ECG ---
Date Performed: 11/30/2017 Time Performed: 07:45:26 PTAGE: 52 years EKG: Sinus rhythm POSSIBLE LATERAL MYOCARDIAL INFARCTION BORDERLINE ECG PREVIOUS TRACING : 11/26/2017 21.29 DOCTOR: Oz Rosales Interpretating Date/Time 12/01/2017 12:02:09
--- NOTE | 2017-12-01 12:35 | NM ---
EXAM DATE: 12/01/2017 12:29 PM EDT AGE/SEX: 52 years / Female INDICATIONS:Angina. Abnormal EKG Chest pain. CLINICAL DATA: This is the patient's initial encounter. Patient reports that signs and symptoms have been present for 1 day and indicates a pain score of 4/10. MEDICAL/SURGICAL HISTORY: None. None. COMPARISON: No prior exams available for comparison. DOSE: 30.1 mCi Tc 99m Myoview at rest 30.1 mCi [id number] at stress 0.4 mg Lexiscan STRESS SYMPTOMS: None. EJECTION FRACTION: 55 % TECHNIQUE: The patient underwent pharmacologic stress with infusion of prescribed dose. Continuous ECG tracing was monitored during stress. Gated SPECT imaging was performed after stress and conventi onal SPECT imaging was performed at rest. The examination was performed on a SPECT/CT scanner, both attenuation and non-corrected datasets were reviewed. FINDINGS: Distribution: The maximum perfused segment at stress is in the posterior basal wall. Perfusion Study: Mildly diminished apical perfusion Gated Study: There are intact wall motion and wall thickening without hypokinetic or dyskinetic segm ents. The ejection fraction is calculated at 55%. RISK CATEGORY: Low (<1% Annual Motality Rate) CONCLUSION: Mildly diminished relative perfusion to the apex which may largely reflect myocardial thinning. No ev idence of ischemia. Electronically signed by: Yifna Maldonado MD 12/01/2017 12:33 PM EDT
--- NOTE | 2017-12-01 14:21 | MB ---
cc: Andrew Morales MD DATE: 12/01/2017 REASON FOR CONSULTATION: Respiratory failure, morbid obesity, question sleep apnea. HISTORY OF PRESENT ILLNESS: The patient is a 52-year-old female, admitted with a history of increasing shortness of breath, irregular vaginal bleeding and abdominal pain. The patient has been seen by Cardiology for atypical chest pain as well. She is on oxygen therapy for underlying hypoxemia. The patient states her shortness of breath is much improved with oxygen therapy. She does not know if she stops breathing while sleeping or not. She was told she snores on occasion in the past. PAST MEDICAL HISTORY: Denies history of diabetes, hypertension or heart disease. FAMILY HISTORY: Positive for colon cancer, dementia and laryngeal cancer. SOCIAL HISTORY: Does not smoke at present, used to smoke years ago and does not drink any alcohol, does not use drugs. REVIEW OF SYSTEMS: A 12-point review of systems as per HPI and past history, otherwise negative. CURRENT MEDICATIONS: Include: 1. Acetaminophen. 2. Simethicone. 3. Alprazolam p.r.n. 4. Dulcolax. 5. Lasix. 6. Subcutaneous heparin 5000 units every 8 hours. 7. Metoprolol. 8. Nitroglycerin. 9. Pantoprazole. 10. Temazepam p.r.n. IMAGING STUDIES: Chest x-ray 11/30/2017 with cardiomegaly, suggestion of congestive heart failure. Echocardiogram 11/27/2017 with normal LV function, left ventricular hypertrophy, normal left ventricle systolic function, elevated pulmonary artery pressure of 75. LABORATORY DATA: White count 13,000; hemoglobin 7.1; hematocrit 25; platelets 322,000. Sodium 137, potassium 3.9, BUN 9, creatinine 0.49. IMPRESSION: 1. Respiratory failure. 2. Morbid obesity. 3. Question of obstructive sleep apnea. 4. Pulmonary hypertension, probably secondary to above. 5. Anemia, workup in progress. PLAN: The patient will need evaluation of pulmonary status, as well as sleep evaluation. Pulmonary function will be attempted. Hopefully, the patient will be able to perform same. Her pulmonary hypertension is probably secondary to her morbid obesity, hypoxemia and probable sleep disordered breathing. A sleep evaluation is obviously needed and this will be undertaken as an outpatient when the patient is discharged. Meanwhile supplemental oxygen therapy would be appropriate. We will obtain baseline arterial blood gas to assess the presence of hypercapnia. If this is the case, she would benefit from BiPAP therapy. Thyroid function will be obtained as well. I do thank you for asking me to partake in Ms. Haynes' care. MD RANDY Ontiveros/DENI , 01:58 PM , 02:19 PM
[2017-12-01] MEDS: Heparin - SQ 10,000 UNITS/ML Vial SQ SCH ×2 (14:32→21:40)
[2017-12-01 14:46] LABS: ABG Base Excess 12.3 mmol/L (-2-2); ABG PCO2 75 mmHg (38-42); ABG PO2 67 mmHg (61-120)
--- NOTE | 2017-12-01 16:56 | P.PNGI ---
Subjective Interval history: Patient scheduled for colonoscopy today, due to OR/GI schedule that was rescheduled for am.Interim patient developed respiratory distress, [place] [facility] [place]. Hungry . NO reports of gi bleeding Physical Exam Vital signs: Vital Signs 11/30/17 17:51 11/30/17 18:07 11/30/17 19:07 Temperature 96.8 F L 96.2 F L 97.5 F L Pulse Rate 72 70 70 Respiratory Rate 18 19 20 Blood Pressure 150/68 H 126/59 L 129/70 Pulse Oximetry 100 100 96 11/30/17 20:00 11/30/17 20:07 11/30/17 20:30 Temperature 98.3 F 97.2 F L Pulse Rate 75 69 Respiratory Rate 18 22 Blood Pressure 144/66 H 133/71 Pulse Oximetry 94 L 94 L 100 11/30/17 20:40 12/01/17 00:00 12/01/17 04:00 Temperature 98 F 98.3 F 98.7 F Pulse Rate 74 74 80 Respiratory Rate 22 20 18 Blood Pressure 128/67 132/71 145/68 H Pulse Oximetry 99 93 L 12/01/17 08:00 12/01/17 08:30 12/01/17 12:00 Temperature 98.7 F 97.0 F L Pulse Rate 81 74 Respiratory Rate 18 18 Blood Pressure 143/88 H 142/68 H Pulse Oximetry 97 95 96 12/01/17 15:30 12/01/17 16:31 Temperature 97.4 F L Pulse Rate 75 Respiratory Rate 18 Blood Pressure 145/68 H Pulse Oximetry 96 98 Intake & Output 11/30/17 12/01/17 12/01/17 18:59 06:59 18:59 Intake Total 480 / 480 400 / 400 Output Total 400 / 400 Balance 480 / 480 0 / 0 Intake: Oral 480 / 480 Intake (Blood Product) Amt 0 / 0 400 / 400 Rbc As-3 Leukoreduced Unit 0 / 0 400 / 400 [id number] Output: Urine 400 / 400 Other: # Voids 3 Date of Last Bowel Movement 11/27/17 11/27/17 - Constitutional Comments: mild respiratory distress on CPAP - Routine HEENT Exam Head: Present: normocephalic - Routine Respiratory Exam Comments: on CPAP - Routine Cardiovascular Exam Present: S1, S2 - Routine Abdominal Exam Present: soft Comments: obese - Routine Extremities Exam Present: edema - Routine Skin Exam Present: intact - Routine Neurological Exam Present: alert, oriented X3 - Routine Psychiatric Exam Present: normal affect - Urinary Catheter Management Indwelling Urethral Catheter Cath placed during this visit: yes Reason for continuing: Hourly intake/output Insertion date: 11/27/17 Insertion time: 02:36 Results - Labs CBC & Chem 7: 12/01/17 04:35 12/01/17 04:35 Laboratory Results - last 24 hr 11/30/17 11/30/17 12/01/17 13:04 17:34 04:35 Hgb Hct Puncture Site Patient Temperature O2 Saturation ABG pH ABG pCO2 ABG pO2 ABG HCO3 ABG O2 Content ABG Base Excess ABG Methemoglobin Tono Test Hemoglobin Carboxyhemoglobin O2 Delivery Device Liter Flow Inspired O2 Critical Value Sodium 137 Potassium 3.9 Chloride 95 L Carbon Dioxide 37.5 H Anion Gap 5 BUN 9 Creatinine 0.49 L Estimated GFR Greater than 89 Random Glucose 120 H Calcium 8.2 L Total Bilirubin 0.5 AST 14 L ALT 16 Alkaline Phosphatase 80 Troponin I 0.03 Total Protein 7.0 Albumin 2.7 L TSH Blood Type O Positive Antibody Screen Negative MTS Gel Crossmatch See Detail Bld Prod Order Comment 12/01/17 12/01/17 12/01/17 04:35 04:35 14:40 Hgb 8.1 L Hct 30.0 L Puncture Site Left radial Patient Temperature 98.6 O2 Saturation 90 ABG pH 7.33 L ABG pCO2 75 H* ABG pO2 67 ABG HCO3 39 H ABG O2 Content 9.6 L ABG Base Excess 12.3 H ABG Methemoglobin 0.8 Tono Test Present Hemoglobin 7.5 L Carboxyhemoglobin 3.1 O2 Delivery Device Nasal cannula Liter Flow 2.00 Inspired O2 21 Critical Value Yes Sodium Potassium Chloride Carbon Dioxide Anion Gap BUN Creatinine Estimated GFR Random Glucose Calcium Total Bilirubin AST ALT Alkaline Phosphatase Troponin I Total Protein Albumin TSH 1.510 Blood Type Antibody Screen MTS Gel Crossmatch Bld Prod Order Comment - Imaging Impressions Myocardial Perfusion Scan Nuc Med 11/30/17 00:00 CONCLUSION: Mildly diminished relative perfusion to the apex which may largely reflect myocardial thinning. No evidence of ischemia. Assessment and Plan - Attending Attestation Symptomatic anemia - no indication of active bleeding Vaginal bleeding-consider money market clerk eval Respiratory distress on CPAP Recommendations Clear liquid diet if ok with pulmonary colonoscopy in am if stable transfuse to keep hb more than 8 consider money market clerk evaluation NPO after midnight
[2017-12-01 17:18] LABS: ABG Base Excess 13.2 mmol/L (-2-2); ABG PCO2 70 mmHg (38-42); ABG PO2 66 mmHg (61-120)
[2017-12-02] MEDS: Acetaminophen 325 MG Tablet PO PRN (03:29)
[2017-12-02 05:03] LABS: Hematocrit 27.2 % (35.0-46.0); Hemoglobin 7.6 gm/dL (11.6-15.3); Mean Corpuscular Hemoglobin 19.5 pg (27.0-34.0); Mean Corpuscular Volume 69.7 fL (80.0-100.0); Mean Platelet Volume 8.2 fL (7.0-11.0); Platelet Count 251 th/mm3 (150-450); Red Cell Distribution Width 33.1 % (11.6-17.2); White Blood Count 7.9 th/mm3 (4.0-11.0)
[2017-12-02 05:13] LABS: Chloride 95 meq/L (98-107); Potassium 3.7 meq/L (3.5-5.1); Sodium 138 meq/L (136-145)
[2017-12-02 05:17] LABS: Calcium 7.9 mg/dL (8.5-10.1)
[2017-12-02 05:18] LABS: Anion Gap 3 meq/L (5-15); Blood Urea Nitrogen 8 mg/dL (7-18); Carbon Dioxide 40.3 meq/L (21.0-32.0); Glucose,Random 82 mg/dL (74-106)
[2017-12-02 05:21] LABS: Glomerular Filtration Rate Greater Than 89 mL/min (>89)
[2017-12-02 05:36] LABS: ABG Base Excess 14.6 mmol/L (-2-2); ABG PCO2 71 mmHg (38-42); ABG PO2 69 mmHg (61-120)
[2017-12-02] MEDS ORDERED: Chlorhexidine Gluconate 2% 1 Pack (2 Cloths) TOPICAL SCH (07:45)
[2017-12-02] MEDS ORDERED: Metoprolol Tartrate 25 MG Tablet PO SCH (07:45)
[2017-12-02] MEDS ORDERED: Ketamine Inj 500 MG/10 ML Vial ONE (07:50)
[2017-12-02] MEDS ORDERED: Sodium Chlor 0.9% Inj 500 ML IV.SIG SCH (08:00)
--- NOTE | 2017-12-02 08:27 | GIPROC ---
[facility] [address] [place] [address], [id number] COLONOSCOPY PROCEDURE REPORT EXAM DATE: 12/02/2017 PATIENT NAME: Guerline Haynes MR #: [id number] BIRTHDATE: 1965 ENDOSCOPIST: Ivonne Clements MD ORDER #: [id number] [place]: Luis Melendez STATUS: inpatient INDICATIONS: The patient is a 52 yr old female here for a colonoscopy due to anemia PROCEDURE PERFORMED: Colonoscopy, incomplete Colonoscopy with polypectomy MEDICATIONS: None and Per Anesthesia. PREP QUALITY: poor PREP TYPE:Other: ESTIMATED BLOOD LOSS: None CONSENT: The patient understands the risks and benefits of the procedure and understands that these risks include, but are not limited to: sedation, allergic reaction, infection, perforation and/or bleeding. Alternative means of evaluation and treatment include, among others: physical exam, x-rays, and/or surgical intervention. The patient elects to proceed with this endoscopic procedure. medical equipment was checked for proper function. Hand hygiene and appropriate measures for infection prevention was taken. After the risks, benefits and alternatives of the procedure were thoroughly explained, Informed consent was verified, confirmed and timeout was successfully executed by the treatment team. A digital exam revealed external hemorrhoids The Pentax [id number] endoscope was introduced through the anus and advanced to the hepatic flexure. The instrument was then slowly withdrawn as the colon was fully examined. COLON FINDINGS: Polyp sigmoid-6 mm -hot snare polypectomy two polyps in rectum-6 mm-hot snare polypectomy with complete removal diverticulosis sigmoid,descending internal hemmorhoids scope advanced to hepatic flexure-could not be advanced further. Retroflexed views revealed internal hemorrhoids and Retroflexed views revealed small internal hemorrhoids The scope was then completely withdrawn from the patient and the procedure terminated. PROCEDURE WITHDRAWAL TIME:6minutes ADVERSE EVENTS: There were no complications. IMPRESSIONS: 1. Polyp sigmoid-6 mm -hot snare polypectomy two polyps in rectum-6 mm-hot snare polypectomy with complete removal diverticulosis sigmoid,descending internal hemmorhoids scope advanced to hepatic flexure-could not be advanced further 2. Retroflexed views revealed internal hemorrhoids 3. Retroflexed views revealed small internal hemorrhoids 4. Revealed external hemorrhoids RECOMMENDATIONS: 1. Await biopsy results. Biopsy results will not be ready for 7-10 days. If you don't hear from us in two weeks, call our office for results. 2. Benefiber 2 tsp daily 3. Leasing Professional consult ba enema resume diet RECALL: Return 3 months Colonoscopy Ivonne Clements MD eSigned: Ivonne Clements MD 12/02/2017 8:27 AM cc: PATIENT NAME: Guerline Haynes MR#: [id number]
[2017-12-02] MEDS: Senna/Docusate Sodium 8.6/50 MG Tablet PO SCH ×2 (10:18→22:01)
--- NOTE | 2017-12-02 15:27 | P.PN ---
Subjective Interval history: pt is laying comfortably in the hospital bed. She states that her breathing is much better. She is at 97% on 3 L NC. Denies CP, F, chills, nausea, vomiting. Pt states that she believes its because of the hospital bed that she is not making much progress with PT. She states "The bed sinks me in and makes it difficult for me to move my legs". PT has recommended wheelchair and bariatric walker. waiting on IRON LAUNDER OPERATOR consult Physical Exam Vital signs: Vital Signs 12/01/17 15:30 12/01/17 16:31 12/01/17 19:30 Temperature 97.4 F L Pulse Rate 75 Respiratory Rate 18 Blood Pressure 145/68 H Pulse Oximetry 96 98 98 12/01/17 20:00 12/01/17 22:40 12/02/17 00:00 Temperature 98.4 F 97.6 F Pulse Rate 69 67 Respiratory Rate 20 20 Blood Pressure 120/63 130/64 Pulse Oximetry 100 98 100 12/02/17 00:09 12/02/17 01:20 12/02/17 04:00 Temperature 97.8 F Pulse Rate 61 Respiratory Rate 20 20 Blood Pressure 119/62 Pulse Oximetry 92 L 100 12/02/17 07:15 12/02/17 08:35 12/02/17 08:45 Temperature 98.3 F 98.4 F Pulse Rate 60 71 67 Respiratory Rate 18 16 16 Blood Pressure 116/64 130/66 130/69 Pulse Oximetry 98 98 97 12/02/17 08:55 12/02/17 09:10 Temperature 98.3 F Pulse Rate 70 Respiratory Rate 16 Blood Pressure 130/70 Pulse Oximetry 97 96 Intake & Output 12/01/17 12/02/17 12/02/17 18:59 06:59 18:59 Intake Total 800 / 800 400 / 400 Output Total 900 / 900 Balance -100 / -100 400 / 400 Weight 201.1 kg Intake: IV 100 / 100 LR 1000 mL Inj 1,000 ML @ 30 100 / 100 mls/hr IV.SIG .Q24H [facility] Rx#: [id number] Oral 800 / 800 Anesthesia Amount 300 / 300 Output: Urine 900 / 900 Other: Date of Last Bowel Movement 12/01/17 12/01/17 - Urinary Catheter Management Indwelling Urethral Catheter Cath placed during this visit: yes Reason for continuing: Hourly intake/output Insertion date: 11/27/17 Insertion time: 02:36 Results - Labs CBC & Chem 7: 12/02/17 04:26 12/02/17 04:26 Laboratory Results - last 24 hr 11/27/17 12/01/17 12/01/17 01:50 04:35 17:15 WBC RBC Hgb Hct MCV MCH MCHC RDW Plt Count MPV Puncture Site Left radial Patient Temperature 98.6 O2 Saturation 90 ABG pH 7.37 L ABG pCO2 70 H* ABG pO2 66 ABG HCO3 39 H ABG O2 Content 9.3 L ABG Base Excess 13.2 H ABG Methemoglobin 0.6 Tono Test Present Hemoglobin 7.3 L Carboxyhemoglobin 3.0 O2 Delivery Device Bipap Liter Flow Vent Setting [id number] Inspired O2 30 Critical Value Yes Sodium Potassium Chloride Carbon Dioxide Anion Gap BUN Creatinine Estimated GFR Random Glucose Calcium RBC Folate 630 TSH 1.510 12/02/17 12/02/17 12/02/17 04:26 04:26 05:30 WBC 7.9 RBC 3.90 L Hgb 7.6 L Hct 27.2 L MCV 69.7 L MCH 19.5 L MCHC 28.0 L RDW 33.1 H Plt Count 251 MPV 8.2 Puncture Site Left radial Patient Temperature 98.6 O2 Saturation 90 ABG pH 7.38 ABG pCO2 71 H* ABG pO2 69 ABG HCO3 40 H ABG O2 Content 8.9 L ABG Base Excess 14.6 H ABG Methemoglobin 0.8 Tono Test Y Hemoglobin 6.9 L* Carboxyhemoglobin 3.1 O2 Delivery Device Nasal cannula Liter Flow 2.00 Vent Setting Inspired O2 Critical Value Yes Sodium 138 Potassium 3.7 Chloride 95 L Carbon Dioxide 40.3 H Anion Gap 3 L BUN 8 Creatinine 0.48 L Estimated GFR Greater than 89 Random Glucose 82 Calcium 7.9 L RBC Folate TSH Assessment and Plan - Plan Respiratory Distress: pt is currently 97% on 3L NC. planning on weaning her off of NC Vaginal bleeding-waiting on GI evaluation
--- NOTE | 2017-12-02 16:20 | P.PNIM ---
Subjective Interval history: For respiratory failure. Now on 2-3 L. CO2 remained stable. No new events. Status post endoscopy. Gynecology consult pending. Care plan discussed at length with patient Physical Exam Vital signs: Vital Signs 12/01/17 16:31 12/01/17 19:30 12/01/17 20:00 Temperature 98.4 F Pulse Rate 69 Respiratory Rate 20 Blood Pressure 120/63 Pulse Oximetry 98 98 100 12/01/17 22:40 12/02/17 00:00 12/02/17 00:09 Temperature 97.6 F Pulse Rate 67 Respiratory Rate 20 20 Blood Pressure 130/64 Pulse Oximetry 98 100 12/02/17 01:20 12/02/17 04:00 12/02/17 07:15 Temperature 97.8 F 98.3 F Pulse Rate 61 60 Respiratory Rate 20 18 Blood Pressure 119/62 116/64 Pulse Oximetry 92 L 100 98 12/02/17 08:35 12/02/17 08:45 12/02/17 08:55 Temperature 98.4 F 98.3 F Pulse Rate 71 67 70 Respiratory Rate 16 16 16 Blood Pressure 130/66 130/69 130/70 Pulse Oximetry 98 97 97 12/02/17 09:10 Temperature Pulse Rate Respiratory Rate Blood Pressure Pulse Oximetry 96 Intake & Output 12/01/17 12/02/17 12/02/17 18:59 06:59 18:59 Intake Total 800 / 800 400 / 400 Output Total 900 / 900 Balance -100 / -100 400 / 400 Weight 201.1 kg Intake: IV 100 / 100 LR 1000 mL Inj 1,000 ML @ 30 100 / 100 mls/hr IV.SIG .Q24H [facility] Rx#: [id number] Oral 800 / 800 Anesthesia Amount 300 / 300 Output: Urine 900 / 900 Other: Date of Last Bowel Movement 12/01/17 12/01/17 - Urinary Catheter Management Indwelling Urethral Catheter Cath placed during this visit: yes Reason for continuing: Hourly intake/output Insertion date: 11/27/17 Insertion time: 02:36 Results - Labs CBC & Chem 7: 12/02/17 04:26 12/02/17 04:26 Laboratory Results - last 24 hr 11/27/17 12/01/17 12/02/17 01:50 17:15 04:26 WBC 7.9 RBC 3.90 L Hgb 7.6 L Hct 27.2 L MCV 69.7 L MCH 19.5 L MCHC 28.0 L RDW 33.1 H Plt Count 251 MPV 8.2 Puncture Site Left radial Patient Temperature 98.6 O2 Saturation 90 ABG pH 7.37 L ABG pCO2 70 H* ABG pO2 66 ABG HCO3 39 H ABG O2 Content 9.3 L ABG Base Excess 13.2 H ABG Methemoglobin 0.6 Tono Test Present Hemoglobin 7.3 L Carboxyhemoglobin 3.0 O2 Delivery Device Bipap Liter Flow Vent Setting [id number] Inspired O2 30 Critical Value Yes Sodium Potassium Chloride Carbon Dioxide Anion Gap BUN Creatinine Estimated GFR Random Glucose Calcium RBC Folate 630 12/02/17 12/02/17 04:26 05:30 WBC RBC Hgb Hct MCV MCH MCHC RDW Plt Count MPV Puncture Site Left radial Patient Temperature 98.6 O2 Saturation 90 ABG pH 7.38 ABG pCO2 71 H* ABG pO2 69 ABG HCO3 40 H ABG O2 Content 8.9 L ABG Base Excess 14.6 H ABG Methemoglobin 0.8 Tono Test Y Hemoglobin 6.9 L* Carboxyhemoglobin 3.1 O2 Delivery Device Nasal cannula Liter Flow 2.00 Vent Setting Inspired O2 Critical Value Yes Sodium 138 Potassium 3.7 Chloride 95 L Carbon Dioxide 40.3 H Anion Gap 3 L BUN 8 Creatinine 0.48 L Estimated GFR Greater than 89 Random Glucose 82 Calcium 7.9 L RBC Folate Assessment and Plan - Assessment (1) Anemia Code(s): D64.9 - Anemia, unspecified Status: Acute Plan: Status post 5 units packed red blood cells, hemoglobin improved 7.6 today, Status post IV iron GI consult appreciated, endoscopy and colonoscopy results in EMR pelvic ultrasound unremarkable, kind consult pending for presumed vaginal bleeding Normal TSH (2) Abdominal pain Code(s): R10.9 - Unspecified abdominal pain Status: Acute Plan: Pannicular edema likely. Continue with Lasix and encourage ambulation (3) Weakness Code(s): R53.1 - Weakness Status: Acute Plan: Continue with PT efforts Bariatric walker requested Patient education (4) Respiratory insufficiency Code(s): R06.89 - Other abnormalities of breathing Status: Acute Plan: With hypoxemic, hypercapnic resp failure hypoventilation and hypoxemia, pulmonary hypertension right-sided Pulmonary consult appreciated, likely restrictive pulmonary disease. Patient will need PFTs when stable Continue to wean oxygen off, BiPAP overnight Lasix twice daily (5) Pulmonary hypertension Code(s): I27.20 - Pulmonary hypertension, unspecified Status: Acute Plan: PA pressures 75. Continue Lasix Patient education provided Patient will need follow-up, pulmonary consult appreciate Continue O2 (6) Chest pain Code(s): R07.9 - Chest pain, unspecified Status: Acute Plan: Etiology unclear, initially improved with Maalox and Protonix (patient with gastritis on endoscopy) Lexiscan negative - Plan Discharge Planning: Pending clinical improve May need home O2 (1) Anemia Qualifiers: Qualified Code(s): D50.9 - Iron deficiency anemia, unspecified
--- NOTE | 2017-12-02 16:27 | P.CON ---
History of Present Illness Service: obgyn Consult date: 12/02/17 Primary Care Provider: No Primary Care Physician Chief Complaint: Abdominal fullness and irregular vaginal bleeding History of Present Illness: 52 yo with perimenopausal bleeding but does not sound like it is heavy enough to account for anemia but may be contributing factor. she has never see BATTERY CONTAINER INSPECTOR and is a virgin. she reports normal monthly menses until 4 years ago and has irregular menses sometime with 60 days of no bleeding. she has passed clots but does not have prolonged bleeding. Review of Systems All other systems reviewed negative except as stated in HPI Constitutional: Reports fatigue, Reports weakness, Reports weight gain (50 # with of mother 1 year ago) Cardiovascular: Reports lightheadedness Respiratory: Reports shortness of breath PMFSH - History History Provided By: Patient - Medical / Surgical Hx Neg / Unobtainable Medical Problems Denied: Yes - Medical History Medical History: Medical History (Last Reviewed 11/30/17 @ 03:31 by Francisca Montesinos RN) Patient denies medical problems - Surgical History Surgical History: Surgical History (Last Reviewed 11/28/17 @ 09:56 by Caleb Samson) No history of previous surgery - Family History Family History: Family History (Last Updated 11/27/17 @ 10:55 by Kimberly Angulo MD) Other Colon cancer Dementia Throat cancer - Tobacco History Second Hand Smoke Exposure: No Smoking Status: Former smoker - Alcohol History How Often Do You Have a Drink Containing Alcohol: Never - Substance Use History Substance History: No History of Abuse - Travel History Recent Travel Out of the Country Within the Last 8 Weeks: No - Immunization History Tetanus Immunization: Unsure Hx Influenza Vaccine This Season: No Medications and Allergies Active Medications: Active Medications Acetaminophen (Tylenol) 650 mg PO Q4H PRN PRN Reason: PAIN 1-10 AND/OR FEVER >101F Last Admin: 12/02/17 03:29 Dose: 650 mg Acetaminophen (Tylenol) 650 mg PO Q4H PRN PRN Reason: SEE LABEL COMMENTS Last Admin: 11/27/17 19:43 Dose: 650 mg Acetaminophen (Tylenol) 650 mg PO Q4H PRN PRN Reason: SEE LABEL COMMENTS Al Hydrox/Mg Hydrox/Simethicone (Mag-Al Plus Susp Liq) 30 ml PO Q6H PRN PRN Reason: DYSPEPSIA Al Hydroxide/Mg Hydroxide (Milk Of Magnesia Liq) 30 ml PO Q12H PRN PRN Reason: Mild Constipation Last Admin: 11/29/17 21:04 Dose: 30 ml Alprazolam (Xanax) 0.5 mg PO Q8H PRN PRN Reason: ANXIETY Last Admin: 11/30/17 15:14 Dose: 0.5 mg Bisacodyl (Dulcolax Supp) 10 mg RECTAL DAILY PRN PRN Reason: SEVERE CONSITIPATION Chlorhexidine Gluconate (Chlorhexidine 2% Cloth) 3 pack TOPICAL AUTOMATIC TRIMMING SEWER [facility] Stop: 12/05/17 07:31 Diphenhydramine HCl (Benadryl) 25 mg PO Q4H PRN PRN Reason: SEE LABEL COMMENTS Last Admin: 11/28/17 07:35 Dose: 25 mg Furosemide (Lasix Inj) 40 mg IV.PUSH BID@0900,1800 [facility] Last Admin: 12/02/17 10:21 Dose: 40 mg Lactated Ringer's (Lr 1000 Ml Inj) 1,000 mls @ 30 mls/hr IV.SIG .Q24H [facility] Stop: 12/05/17 07:31 Last Infusion: 12/02/17 13:39 Dose: 30 mls/hr Sodium Chloride (Ns Inj) 500 mls @ 30 mls/hr IV.SIG .Q10H [facility] Stop: 12/05/17 07:31 Lactulose (Lactulose Liq) 30 ml PO DAILY PRN PRN Reason: SEVERE CONSITIPATION Metoprolol Tartrate (Lopressor) 25 mg PO AUTOMATIC TRIMMING SEWER [facility] Stop: 12/05/17 07:31 Nitroglycerin (Nitrostat Sl) 0.4 mg SL Q5M PRN PRN Reason: CHEST PAIN Ondansetron HCl (Zofran Inj) 4 mg IV.PUSH Q6H PRN PRN Reason: NAUSEA OR VOMITING Last Admin: 11/30/17 21:16 Dose: 4 mg Pantoprazole Sodium (Protonix) 40 mg PO DAILY [facility] Last Admin: 12/02/17 10:18 Dose: 40 mg Povidone Iodine (Betadine 5% Antisepsis Kit) 1 applicatio EACH NARE AUTOMATIC TRIMMING SEWER [facility] Stop: 12/05/17 07:31 Senna/Docusate Sodium (Ludy-Colace) 1 tab PO BID [facility] Last Admin: 12/02/17 10:18 Dose: 1 tab Sennosides (Senokot) 17.2 mg PO Q12H PRN PRN Reason: Moderate Constipation Sodium Chloride (Ns Flush) 2 ml IV.FLUSH UNSCH PRN PRN Reason: FLUSH AFTER USING IV ACCESS Temazepam (Restoril) 15 mg PO HS PRN PRN Reason: INSOMNIA Last Admin: 11/30/17 00:44 Dose: 15 mg Allergies Allergy/AdvReac Type Severity Reaction Status Date / Time No Known Allergies Allergy Unverified 11/26/17 21:11 Home Medications Medication Instructions Recorded Confirmed Type aspirin 324 mg PO Q6HR 11/26/17 11/26/17 History Physical Exam Vital signs: Vital Signs 12/01/17 16:31 12/01/17 19:30 12/01/17 20:00 Temperature 98.4 F Pulse Rate 69 Respiratory Rate 20 Blood Pressure 120/63 Pulse Oximetry 98 98 100 12/01/17 22:40 12/02/17 00:00 12/02/17 00:09 Temperature 97.6 F Pulse Rate 67 Respiratory Rate 20 20 Blood Pressure 130/64 Pulse Oximetry 98 100 12/02/17 01:20 12/02/17 04:00 12/02/17 07:15 Temperature 97.8 F 98.3 F Pulse Rate 61 60 Respiratory Rate 20 18 Blood Pressure 119/62 116/64 Pulse Oximetry 92 L 100 98 12/02/17 08:35 12/02/17 08:45 12/02/17 08:55 Temperature 98.4 F 98.3 F Pulse Rate 71 67 70 Respiratory Rate 16 16 16 Blood Pressure 130/66 130/69 130/70 Pulse Oximetry 98 97 97 12/02/17 09:10 Temperature Pulse Rate Respiratory Rate Blood Pressure Pulse Oximetry 96 Intake & Output 12/01/17 12/02/17 12/02/17 18:59 06:59 18:59 Intake Total 800 / 800 400 / 400 Output Total 900 / 900 Balance -100 / -100 400 / 400 Weight 201.1 kg Intake: IV 100 / 100 LR 1000 mL Inj 1,000 ML @ 30 100 / 100 mls/hr IV.SIG .Q24H [facility] Rx#: [id number] Oral 800 / 800 Anesthesia Amount 300 / 300 Output: Urine 900 / 900 Other: Date of Last Bowel Movement 12/01/17 12/01/17 - Constitutional no acute distress, morbidly obese - Routine HEENT Exam Head: Present: normocephalic - Routine Neck Exam Present: supple, full ROM - Routine Respiratory Exam Present: CTA bilaterally - Routine Cardiovascular Exam Present: RRR - Routine Abdominal Exam Present: soft, normoactive bowel sounds - Routine Exam External: Present: normal urethra appearance Perineum Description: Intact Comments: pelvic exam deferred until in office on BATTERY CONTAINER INSPECTOR table - Routine Extremities Exam Present: full ROM - Routine Skin Exam Present: intact - Routine Neurological Exam Present: alert, oriented X3 - Routine Psychiatric Exam Present: normal affect, normal thought process - Additional findings Additional findings: reviewed labs and imaging - Urinary Catheter Management Indwelling Urethral Catheter Cath placed during this visit: yes Reason for continuing: Hourly intake/output Insertion date: 11/27/17 Insertion time: 02:36 Assessment and Plan - Assessment (1) Abnormal perimenopausal bleeding Code(s): N92.4 - Excessive bleeding in the premenopausal period Status: Acute - Plan follow up in BATTERY CONTAINER INSPECTOR office. No heavy bleeding. If heavy bleeding occurs prior to DC home ok to place on provera 10 mg. daily. She needs follow up BATTERY CONTAINER INSPECTOR in my office or the BATTERY CONTAINER INSPECTOR of her choice. Ok to dc home as BATTERY CONTAINER INSPECTOR concerned
--- NOTE | 2017-12-02 20:47 | P.PNPL ---
Subjective Interval history: 52 YOWF with COPD,ABIMBOLA likly, severe anemia On [place] Breathing better No CP, abd pain Physical Exam Vital signs: Vital Signs 12/01/17 22:40 12/02/17 00:00 12/02/17 00:09 Temperature 97.6 F Pulse Rate 67 Respiratory Rate 20 20 Blood Pressure 130/64 Pulse Oximetry 98 100 12/02/17 01:20 12/02/17 04:00 12/02/17 07:15 Temperature 97.8 F 98.3 F Pulse Rate 61 60 Respiratory Rate 20 18 Blood Pressure 119/62 116/64 Pulse Oximetry 92 L 100 98 12/02/17 08:35 12/02/17 08:45 12/02/17 08:55 Temperature 98.4 F 98.3 F Pulse Rate 71 67 70 Respiratory Rate 16 16 16 Blood Pressure 130/66 130/69 130/70 Pulse Oximetry 98 97 97 12/02/17 09:08 12/02/17 09:10 12/02/17 10:29 Temperature Pulse Rate 62 62 Respiratory Rate 18 18 Blood Pressure 120/61 121/56 L Pulse Oximetry 95 96 97 12/02/17 11:09 12/02/17 12:10 12/02/17 13:10 Temperature Pulse Rate 60 64 68 Respiratory Rate 25 H 16 21 Blood Pressure 119/57 L 144/64 H 165/78 H Pulse Oximetry 96 93 L 97 12/02/17 13:23 12/02/17 16:00 12/02/17 19:35 Temperature 98.0 F Pulse Rate 76 Respiratory Rate 20 Blood Pressure 154/72 H Pulse Oximetry 95 95 96 Intake & Output 12/02/17 12/02/17 12/03/17 06:59 18:59 06:59 Intake Total 800 / 800 1360 / 1360 Output Total 900 / 900 1900 / 1900 Balance -100 / -100 -540 / -540 Weight 201.1 kg Intake: IV 100 / 100 LR 1000 mL Inj 1,000 ML @ 30 100 / 100 mls/hr IV.SIG .Q24H [facility] Rx#: [id number] Oral 800 / 800 960 / 960 Anesthesia Amount 300 / 300 Output: Urine 900 / 900 1900 / 1900 Other: Date of Last Bowel Movement 12/01/17 12/01/17 # Bowel Movements 1 GENERAL: Obese WF, mild sob SKIN: Warm and dry. HEAD: Normocephalic. EYES: No scleral icterus. No injection or drainage. NECK: Supple, trachea midline. No JVD or lymphadenopathy. CARDIOVASCULAR: Regular rate and rhythm without murmurs, gallops, or rubs. RESPIRATORY: Breath sounds equal bilaterally. No accessory muscle use. GASTROINTESTINAL: Abdomen soft, non-tender, nondistended. MUSCULOSKELETAL: No cyanosis, or edema. BACK: Nontender without obvious deformity. No CVA tenderness. - Urinary Catheter Management Indwelling Urethral Catheter Cath placed during this visit: yes Reason for continuing: Hourly intake/output Insertion date: 11/27/17 Insertion time: 02:36 Assessment and Plan - Plan IMPRESSION: 1. Shortness of breath and pulmonary hypertension. She is morbidly obese and symptoms are suggestive of underlying restrictive disease and sleep apnea. 2. Severe anemia. 3. Dyspnea. 4. Morbid obesity. 5. Hypertension. PLAN: Supplement 02 CPAP prn Aerosol nebs Monitor H/H Will need sleep study as out pt
[2017-12-03] MEDS: Senna/Docusate Sodium 8.6/50 MG Tablet PO SCH ×2 (09:37→22:33)
--- NOTE | 2017-12-03 10:01 | P.PNIM ---
Subjective Interval history: Patient seen and evaluate and pulmonary hypertension. Now on 1 L O2. Complaining of right wrist pain. Discharge plans discussed with patient Physical Exam Vital signs: Vital Signs 12/02/17 10:29 12/02/17 11:09 12/02/17 12:10 Temperature Pulse Rate 62 60 64 Respiratory Rate 18 25 H 16 Blood Pressure 121/56 L 119/57 L 144/64 H Pulse Oximetry 97 96 93 L 12/02/17 13:10 12/02/17 13:23 12/02/17 16:00 Temperature 98.0 F Pulse Rate 68 76 Respiratory Rate 21 20 Blood Pressure 165/78 H 154/72 H Pulse Oximetry 97 95 95 12/02/17 19:35 12/02/17 20:00 12/03/17 01:00 Temperature 98.0 F 97.5 F L Pulse Rate 80 76 Respiratory Rate 20 20 Blood Pressure 133/67 170/78 H Pulse Oximetry 96 97 96 12/03/17 04:00 12/03/17 06:17 12/03/17 08:00 Temperature 98.3 F 96.1 F L Pulse Rate 72 84 69 Respiratory Rate 22 24 18 Blood Pressure 200/76 H 176/65 H 160/76 H Pulse Oximetry 96 93 L Intake & Output 12/02/17 12/03/17 12/03/17 18:59 06:59 18:59 Intake Total 1360 / 1360 Output Total 1900 / 1900 1000 / 1000 Balance -540 / -540 -1000 / -1000 Weight 199.9 kg Intake: IV 100 / 100 LR 1000 mL Inj 1,000 ML @ 30 100 / 100 mls/hr IV.SIG .Q24H [facility] Rx#: [id number] Oral 960 / 960 Anesthesia Amount 300 / 300 Output: Urine 1900 / 1900 1000 / 1000 Other: Date of Last Bowel Movement 12/01/17 12/01/17 # Bowel Movements 1 Narrative: GENERAL: Patient calm resting and without complaints sleepy but easily arousable SKIN: Warm and dry. No rashes or ecchymotic injuries EYES: Pupils equal and round. No scleral icterus. No injection or drainage. ENT: External ear exam normal. No acute nasal bleeding or discharge. Mucous membranes pink and moist. CARDIOVASCULAR: Regular rate and rhythm. No murmurs gallops or rubs appreciated RESPIRATORY: Good air flow and effort without accessory muscle use. Clear to auscultation. Breath sounds equal bilaterally. GASTROINTESTINAL: Large pannus with improvement in pannicular edema a, otherwise abdomen soft, non-tender, nondistended. Hepatic and splenic margins not palpable. MUSCULOSKELETAL: Right hand with evidence of thrombophlebitis, extremities without clubbing, cyanosis, or edema. No obvious deformities. NEUROLOGICAL: Awake and alert. No obvious cranial nerve deficits. Motor grossly within normal limits. Five out of 5 muscle strength in the arms and legs. Normal speech. - Urinary Catheter Management Indwelling Urethral Catheter Cath placed during this visit: yes Reason for continuing: Hourly intake/output Insertion date: 11/27/17 Insertion time: 02:36 Results - Labs CBC & Chem 7: 12/02/17 04:26 12/02/17 04:26 Assessment and Plan - Assessment (1) Anemia Code(s): D64.9 - Anemia, unspecified Status: Acute Plan: Status post 5 units packed red blood cells, hemoglobin improved 7.6 today, Status post IV iron GI consult appreciated, endoscopy and colonoscopy results in EMR pelvic ultrasound unremarkable, crayon sorting machine feeder consult appreciated Normal TSH (2) Abdominal pain Code(s): R10.9 - Unspecified abdominal pain Status: Acute Plan: Pannicular edema likely. Continue with Lasix and encourage ambulation (3) Weakness Code(s): R53.1 - Weakness Status: Acute Plan: Continue with PT efforts Bariatric walker requested Patient education (4) Respiratory insufficiency Code(s): R06.89 - Other abnormalities of breathing Status: Acute Plan: With hypoxemic, hypercapnic resp failure hypoventilation and hypoxemia, pulmonary hypertension right-sided Pulmonary consult appreciated, likely restrictive pulmonary disease. PFTs pending Continue to wean oxygen off, BiPAP overnight Lasix daily (5) Pulmonary hypertension Code(s): I27.20 - Pulmonary hypertension, unspecified Status: Acute Plan: PA pressures 75. Continue Lasix Patient education provided Patient will need follow-up, pulmonary consult appreciate Continue O2 (6) Chest pain Code(s): R07.9 - Chest pain, unspecified Status: Acute Plan: likely gi, initially improved with Maalox and Protonix (patient with gastritis on endoscopy) Lexiscan negative - Plan Discharge Planning: Pending clinical improvement 1-2 days (1) Anemia Qualifiers: Anemia type: iron deficiency Iron deficiency anemia type: unspecified iron deficiency Qualified Code(s): D50.9 - Iron deficiency anemia, unspecified
[2017-12-03 11:22] LABS: Hemoglobin 8.2 gm/dL (11.6-15.3)
--- NOTE | 2017-12-03 18:28 | P.PNGI ---
Subjective Interval history: Late entry .Seen earlier today, concern about walker and commode.Discussed about findings during colonoscopy.discussed with radiology -they are unable to do ba enema due to body habitus , ct colonography suggested-this is done inpatient . Was evaluated by sales trader-consult pending Physical Exam Vital signs: Vital Signs 12/02/17 19:35 12/02/17 20:00 12/03/17 01:00 Temperature 98.0 F 97.5 F L Pulse Rate 80 76 Respiratory Rate 20 20 Blood Pressure 133/67 170/78 H Pulse Oximetry 96 97 96 12/03/17 04:00 12/03/17 06:17 12/03/17 08:00 Temperature 98.3 F 96.1 F L Pulse Rate 72 84 69 Respiratory Rate 22 24 18 Blood Pressure 200/76 H 176/65 H 160/76 H Pulse Oximetry 96 96 12/03/17 11:17 12/03/17 12:00 12/03/17 16:00 Temperature 98.5 F Pulse Rate 71 64 Respiratory Rate 26 H 23 15 Blood Pressure 117/56 L Pulse Oximetry 96 Intake & Output 12/02/17 12/03/17 12/03/17 18:59 06:59 18:59 Intake Total 1360 / 1360 Output Total 1900 / 1900 1000 / 1000 800 / 800 Balance -540 / -540 -1000 / -1000 -800 / -800 Weight 199.9 kg Intake: IV 100 / 100 LR 1000 mL Inj 1,000 ML @ 30 100 / 100 mls/hr IV.SIG .Q24H [facility] Rx#: [id number] Oral 960 / 960 Anesthesia Amount 300 / 300 Output: Urine 1900 / 1900 1000 / 1000 800 / 800 Other: Date of Last Bowel Movement 12/01/17 12/01/17 12/01/17 # Bowel Movements 1 - Constitutional morbidly obese, obese - Routine HEENT Exam Head: Present: normocephalic Eye: Present: PERRL ENT: Present: mucous membranes moist - Routine Cardiovascular Exam Present: S1, S2 - Routine Abdominal Exam Present: soft - Routine Neurological Exam Present: alert, oriented X3 - Routine Psychiatric Exam Present: normal affect - Urinary Catheter Management Indwelling Urethral Catheter Cath placed during this visit: yes Reason for continuing: Hourly intake/output Insertion date: 11/27/17 Insertion time: 02:36 Results - Labs CBC & Chem 7: 12/03/17 10:50 12/02/17 04:26 Laboratory Results - last 24 hr 12/03/17 10:50 Hgb 8.2 L Hct 28.0 L Assessment and Plan - Attending Attestation anemia possible sales trader etiology-patient has vaginal bleeding for few weeks anemia -s/p egd , incomplete colonoscopy-no indication of gi bleeding morbid obesity Recommendations consider hematology eval-iron infusion sales trader fu ct colonography , fu colonoscopy based on that weight loss gi will sign off call us as needed if dc fu office
[2017-12-04] MEDS: Furosemide 20 MG Tablet PO SCH (09:38)
[2017-12-04] MEDS: Senna/Docusate Sodium 8.6/50 MG Tablet PO SCH ×2 (09:39→20:09)
--- NOTE | 2017-12-04 17:33 | P.PN ---
Subjective Interval history: 52-year-old female that complains of generalized weakness, she was able to stand for 5 minutes with physical therapy today which is a great improvement. She has no specific complaints and seems motivated to want to be able to get back on her feet again. Physical Exam Vital signs: Vital Signs 12/03/17 20:00 12/04/17 00:00 12/04/17 04:00 Temperature 96.3 F L 96.7 F L 98.0 F Pulse Rate 72 76 61 Respiratory Rate 20 20 20 Blood Pressure 136/64 127/60 149/67 H Pulse Oximetry 98 97 96 12/04/17 07:11 12/04/17 07:36 12/04/17 11:06 Temperature 96.7 F L 97 F L Pulse Rate 71 70 Respiratory Rate 20 20 Blood Pressure 133/63 130/60 Pulse Oximetry 97 94 L 97 12/04/17 15:22 Temperature 96.6 F L Pulse Rate 74 Respiratory Rate 20 Blood Pressure 138/66 Pulse Oximetry 97 Intake & Output 12/03/17 12/04/17 12/04/17 18:59 06:59 18:59 Intake Total 480 / 480 1080 / 1080 Output Total 800 / 800 950 / 950 1999 Balance -800 / -800 -470 / -470 -920 / -920 Weight 199.2 kg Intake: Oral 480 / 480 1080 / 1080 Output: Urine 800 / 800 950 / 950 1999 Other: Date of Last Bowel Movement 12/01/17 12/03/17 # Bowel Movements 0 2 Narrative: GENERAL: Morbidly obese SKIN: Warm and dry. HEAD: Normocephalic. EYES: No scleral icterus. No injection or drainage. NECK: Supple, trachea midline. No JVD or lymphadenopathy. CARDIOVASCULAR: Regular rate and rhythm without murmurs, gallops, or rubs. RESPIRATORY: Breath sounds equal bilaterally. No accessory muscle use. GASTROINTESTINAL: Obese, abdomen soft, non-tender, nondistended. MUSCULOSKELETAL: No cyanosis, or edema. BACK: Nontender without obvious deformity. No CVA tenderness. - Urinary Catheter Management Indwelling Urethral Catheter Cath placed during this visit: yes Reason for continuing: Hourly intake/output Insertion date: 11/27/17 Insertion time: 02:36 Results - Labs CBC & Chem 7: 12/03/17 10:50 12/02/17 04:26 Assessment and Plan - Assessment (1) Anemia Code(s): D64.9 - Anemia, unspecified Status: Acute Plan: Status post 5 units packed red blood cells, hemoglobin improved 7.6 today, Status post IV iron GI consult appreciated, endoscopy and colonoscopy results in EMR pelvic ultrasound unremarkable, plow holder consult appreciated Normal TSH (2) Abdominal pain Code(s): R10.9 - Unspecified abdominal pain Status: Acute Plan: Pannicular edema likely. Continue with Lasix and encourage ambulation (3) Weakness Code(s): R53.1 - Weakness Status: Acute Plan: Continue with PT efforts Bariatric walker requested Patient education (4) Respiratory insufficiency Code(s): R06.89 - Other abnormalities of breathing Status: Acute Plan: With hypoxemic, hypercapnic resp failure hypoventilation and hypoxemia, pulmonary hypertension right-sided Pulmonary consult appreciated, likely restrictive pulmonary disease. PFTs pending Continue to wean oxygen off, BiPAP overnight Lasix daily (5) Pulmonary hypertension Code(s): I27.20 - Pulmonary hypertension, unspecified Status: Acute Plan: PA pressures 75. Continue Lasix Patient education provided Patient will need follow-up, pulmonary consult appreciate Continue O2 (6) Chest pain Code(s): R07.9 - Chest pain, unspecified Status: Acute Plan: likely gi, initially improved with Maalox and Protonix (patient with gastritis on endoscopy) Lexiscan negative - Plan Generalized weakness Patient was able to stand for 5 minutes today, unable to financial services manager the past due to dizziness Continue with PT Anemia Patient received 5 units of packed red blood cells since admission She also received IV iron bolus Appreciate GI consult Appreciate gynecology consult Abdominal pain Pannicular edema most likely, continue with Lasix Encourage ambulation Respiratory insufficiency and pulmonary hypertension Hypoxemia and evidence of sleep apnea PA pressure is 75 PFTs are pending, weaning off of oxygen Continue with BiPAP overnight Continue with Lasix Appreciate pulmonology consult DVT prophylaxis Lovenox Discharge planning Patient is nonambulatory at this time, has no coverage (1) Anemia Qualifiers: Anemia type: iron deficiency Iron deficiency anemia type: unspecified iron deficiency Qualified Code(s): D50.9 - Iron deficiency anemia, unspecified
--- NOTE | 2017-12-04 19:24 | P.PNPL ---
Subjective Interval history: 52 YOWF with COPD,ABIMBOLA likly, severe anemia On [place] Breathing better No CP, abd pain Uses 02 2lnc Physical Exam Vital signs: Vital Signs 12/03/17 20:00 12/04/17 00:00 12/04/17 04:00 Temperature 96.3 F L 96.7 F L 98.0 F Pulse Rate 72 76 61 Respiratory Rate 20 20 20 Blood Pressure 136/64 127/60 149/67 H Pulse Oximetry 98 97 96 12/04/17 07:11 12/04/17 07:36 12/04/17 11:06 Temperature 96.7 F L 97 F L Pulse Rate 71 70 Respiratory Rate 20 20 Blood Pressure 133/63 130/60 Pulse Oximetry 97 94 L 97 12/04/17 15:22 Temperature 96.6 F L Pulse Rate 74 Respiratory Rate 20 Blood Pressure 138/66 Pulse Oximetry 97 Intake & Output 12/04/17 12/04/17 12/05/17 06:59 18:59 06:59 Intake Total 480 / 480 1080 / 1080 Output Total 950 / 950 1999 Balance -470 / -470 -920 / -920 Weight 199.2 kg Intake: Oral 480 / 480 1080 / 1080 Output: Urine 950 / 950 1999 Other: Date of Last Bowel Movement 12/03/17 12/04/17 # Bowel Movements 0 2 GENERAL: Obese female ,NAD SKIN: Warm and dry. HEAD: Normocephalic. EYES: No scleral icterus. No injection or drainage. NECK: Supple, trachea midline. No JVD or lymphadenopathy. CARDIOVASCULAR: Regular rate and rhythm without murmurs, gallops, or rubs. RESPIRATORY: Breath sounds equal bilaterally. No accessory muscle use. GASTROINTESTINAL: Abdomen soft, non-tender, nondistended. MUSCULOSKELETAL: No cyanosis, or edema. BACK: Nontender without obvious deformity. No CVA tenderness. - Urinary Catheter Management Indwelling Urethral Catheter Cath placed during this visit: yes Reason for continuing: Hourly intake/output Insertion date: 11/27/17 Insertion time: 02:36 Assessment and Plan - Plan IMPRESSION: 1. Shortness of breath and pulmonary hypertension. She is morbidly obese and symptoms are suggestive of underlying restrictive disease and sleep apnea. 2. Severe anemia. 3. Dyspnea. 4. Morbid obesity. 5. Hypertension. PLAN: Supplement 02 CPAP prn Aerosol nebs Monitor H/H Will need sleep study as out pt Physical therapy.
[2017-12-04] MEDS: Temazepam 15 MG Capsule PO PRN (20:09)
[2017-12-04] MEDS: Acetaminophen 325 MG Tablet PO PRN (23:06)
[2017-12-05] MEDS: Furosemide 20 MG Tablet PO SCH (08:21)
[2017-12-05] MEDS: Acetaminophen 325 MG Tablet PO PRN (08:23)
[2017-12-05] MEDS: Senna/Docusate Sodium 8.6/50 MG Tablet PO SCH ×2 (08:25→20:27)
--- NOTE | 2017-12-05 17:34 | P.PN ---
Subjective Interval history: Patient has been improving daily with her activity, lasted for 5 minutes yesterday, was able to ambulate to bedside commode today. Physical Exam Vital signs: Vital Signs 12/04/17 20:00 12/04/17 20:30 12/04/17 22:20 Temperature 97.4 F L Pulse Rate 74 Respiratory Rate 20 Blood Pressure 159/72 H Pulse Oximetry 99 98 96 12/05/17 00:00 12/05/17 08:00 12/05/17 08:53 Temperature 97.9 F 96.2 F L Pulse Rate 75 71 Respiratory Rate 20 19 18 Blood Pressure 158/71 H 123/94 H Pulse Oximetry 95 98 12/05/17 12:00 12/05/17 16:00 Temperature 96.9 F L 96.4 F L Pulse Rate 76 72 Respiratory Rate 21 20 Blood Pressure 153/76 H 154/70 H Pulse Oximetry 95 95 Intake & Output 12/04/17 12/05/17 12/05/17 18:59 06:59 18:59 Intake Total 1080 / 1080 720 / 720 Output Total 1999 350 / 350 Balance -920 / -920 370 / 370 Weight 199.5 kg Intake: Oral 1080 / 1080 720 / 720 Output: Urine 1999 350 / 350 Other: Date of Last Bowel Movement 12/04/17 # Bowel Movements 2 Narrative: GENERAL: Morbidly obese, alert and oriented 3 SKIN: Warm and dry. HEAD: Normocephalic. EYES: No scleral icterus. No injection or drainage. NECK: Supple, trachea midline. No JVD or lymphadenopathy. CARDIOVASCULAR: Regular rate and rhythm without murmurs, gallops, or rubs. RESPIRATORY: Breath sounds equal bilaterally. No accessory muscle use. GASTROINTESTINAL: Abdomen soft, non-tender, nondistended. MUSCULOSKELETAL: No cyanosis, or edema. Right wrist shows moderate swelling and warmth, no erythema BACK: Nontender without obvious deformity. No CVA tenderness. - Urinary Catheter Management Indwelling Urethral Catheter Cath placed during this visit: yes Reason for continuing: Hourly intake/output Insertion date: 11/27/17 Insertion time: 02:36 Results - Labs CBC & Chem 7: 12/03/17 10:50 12/02/17 04:26 Assessment and Plan - Assessment (1) Anemia Code(s): D64.9 - Anemia, unspecified Status: Acute Plan: Status post 5 units packed red blood cells, hemoglobin improved 7.6 today, Status post IV iron GI consult appreciated, endoscopy and colonoscopy results in EMR pelvic ultrasound unremarkable, manager client service consult appreciated Normal TSH (2) Abdominal pain Code(s): R10.9 - Unspecified abdominal pain Status: Acute Plan: Pannicular edema likely. Continue with Lasix and encourage ambulation (3) Weakness Code(s): R53.1 - Weakness Status: Acute Plan: Continue with PT efforts Bariatric walker requested Patient education (4) Respiratory insufficiency Code(s): R06.89 - Other abnormalities of breathing Status: Acute Plan: With hypoxemic, hypercapnic resp failure hypoventilation and hypoxemia, pulmonary hypertension right-sided Pulmonary consult appreciated, likely restrictive pulmonary disease. PFTs pending Continue to wean oxygen off, BiPAP overnight Lasix daily (5) Pulmonary hypertension Code(s): I27.20 - Pulmonary hypertension, unspecified Status: Acute Plan: PA pressures 75. Continue Lasix Patient education provided Patient will need follow-up, pulmonary consult appreciate Continue O2 (6) Chest pain Code(s): R07.9 - Chest pain, unspecified Status: Acute Plan: likely gi, initially improved with Maalox and Protonix (patient with gastritis on endoscopy) Lexiscan negative - Plan Generalized weakness Slowly regaining strength Continue with PT Anemia Patient received 5 units of packed red blood cells since admission She also received IV iron bolus Appreciate GI consult Appreciate gynecology consult Recheck CBC in a.m. Right wrist swelling Infiltration during blood transfusions Blood is an irritant when out of vessels, likely a bruise but will monitor for evidence of cellulitis She has been covered empirically with Keflex, continue Keflex Abdominal pain Pannicular edema most likely, continue with Lasix Encourage ambulation Respiratory insufficiency and pulmonary hypertension Hypoxemia and evidence of sleep apnea PA pressure is 75 PFTs are pending, weaning off of oxygen Continue with BiPAP overnight Continue with Lasix Appreciate pulmonology consult DVT prophylaxis Lovenox Discharge planning Patient is nonambulatory at this time, has no coverage (1) Anemia Qualifiers: Anemia type: iron deficiency Iron deficiency anemia type: unspecified iron deficiency Qualified Code(s): D50.9 - Iron deficiency anemia, unspecified
--- NOTE | 2017-12-05 18:19 | P.PNPL ---
Subjective Interval history: 52 YOWF with COPD,ABIMBOLA likly, severe anemia On [place] Breathing better No CP, abd pain Uses 02 2lnc " i walked 5 steps with PT" Physical Exam Vital signs: Vital Signs 12/04/17 20:00 12/04/17 20:30 12/04/17 22:20 Temperature 97.4 F L Pulse Rate 74 Respiratory Rate 20 Blood Pressure 159/72 H Pulse Oximetry 99 98 96 12/05/17 00:00 12/05/17 08:00 12/05/17 08:53 Temperature 97.9 F 96.2 F L Pulse Rate 75 71 Respiratory Rate 20 19 18 Blood Pressure 158/71 H 123/94 H Pulse Oximetry 95 98 12/05/17 12:00 12/05/17 16:00 Temperature 96.9 F L 96.4 F L Pulse Rate 76 72 Respiratory Rate 21 20 Blood Pressure 153/76 H 154/70 H Pulse Oximetry 95 95 Intake & Output 12/04/17 12/05/17 12/05/17 18:59 06:59 18:59 Intake Total 1080 / 1080 720 / 720 300 / 300 Output Total 1999 / 1999 350 / 350 Balance -920 / -920 370 / 370 300 / 300 Weight 199.5 kg Intake: Oral 1080 / 1080 720 / 720 300 / 300 Output: Urine 1999 / 1999 350 / 350 Other: Date of Last Bowel Movement 12/04/17 # Bowel Movements 2 GENERAL: obese WF,NAD SKIN: Warm and dry. HEAD: Normocephalic. EYES: No scleral icterus. No injection or drainage. NECK: Supple, trachea midline. No JVD or lymphadenopathy. CARDIOVASCULAR: Regular rate and rhythm without murmurs, gallops, or rubs. RESPIRATORY: Breath sounds equal bilaterally. No accessory muscle use. GASTROINTESTINAL: Abdomen soft, non-tender, nondistended. MUSCULOSKELETAL: No cyanosis, or edema. BACK: Nontender without obvious deformity. No CVA tenderness. - Urinary Catheter Management Indwelling Urethral Catheter Cath placed during this visit: yes Reason for continuing: Hourly intake/output Insertion date: 11/27/17 Insertion time: 02:36 Assessment and Plan - Plan IMPRESSION: 1. Shortness of breath and pulmonary hypertension. She is morbidly obese and symptoms are suggestive of underlying restrictive disease and sleep apnea. 2. Severe anemia. 3. Dyspnea. 4. Morbid obesity. 5. Hypertension. PLAN: Supplement 02 CPAP prn Aerosol nebs Monitor H/H Will need sleep study as out pt Physical therapy.
[2017-12-05] MEDS: Temazepam 15 MG Capsule PO PRN (22:06)
[2017-12-06 06:34] LABS: Hematocrit 27.8 % (35.0-46.0); Hemoglobin 8.3 gm/dL (11.6-15.3); Mean Corpuscular HGB Conc 29.7 % (32.0-36.0); Mean Corpuscular Hemoglobin 20.3 pg (27.0-34.0); Mean Corpuscular Volume 68.4 fL (80.0-100.0); Mean Platelet Volume 8.3 fL (7.0-11.0); Platelet Count 224 th/mm3 (150-450); Red Blood Count 4.07 mil/mm3 (4.00-5.30); Red Cell Distribution Width 33.6 % (11.6-17.2); White Blood Count 7.5 th/mm3 (4.0-11.0)
[2017-12-06 06:35] LABS: Chloride 99 meq/L (98-107); Potassium 3.9 meq/L (3.5-5.1); Sodium 137 meq/L (136-145)
[2017-12-06 06:38] LABS: Anion Gap 2 meq/L (5-15); Blood Urea Nitrogen 8 mg/dL (7-18); Carbon Dioxide 36.5 meq/L (21.0-32.0); Glucose,Random 97 mg/dL (74-106)
[2017-12-06 06:42] LABS: Glomerular Filtration Rate Greater Than 89 mL/min (>89)
[2017-12-06] MEDS: Senna/Docusate Sodium 8.6/50 MG Tablet PO SCH ×2 (08:40→21:41)
[2017-12-06] MEDS: Furosemide 20 MG Tablet PO SCH (08:40)
[2017-12-06] MEDS ORDERED: Simethicone 80 MG Chew Tablet PO PRN (09:42)
--- NOTE | 2017-12-06 10:37 | P.PN ---
Subjective Interval history: Patient is making daily improvements with her activity. Yesterday she was able to get up to the bedside commode. She would like to attempt walking today. We are also in the process of weaning her off of oxygen. She continues to pass blood clots vaginally. Physical Exam Vital signs: Vital Signs 12/05/17 12:00 12/05/17 16:00 12/05/17 19:54 Temperature 96.9 F L 96.4 F L Pulse Rate 76 72 Respiratory Rate 21 20 Blood Pressure 153/76 H 154/70 H Pulse Oximetry 95 95 97 12/05/17 20:00 12/05/17 20:14 12/06/17 00:00 Temperature 97.5 F L 97.6 F Pulse Rate 78 80 Respiratory Rate 20 20 Blood Pressure 182/82 H 171/79 H Pulse Oximetry 95 96 95 12/06/17 07:20 Temperature 96.5 F L Pulse Rate 78 Respiratory Rate 20 Blood Pressure 151/72 H Pulse Oximetry 95 Intake & Output 12/05/17 12/06/17 12/06/17 18:59 06:59 18:59 Intake Total 300 / 300 480 / 480 Output Total 400 / 400 Balance 300 / 300 80 / 80 Weight 199.5 kg Intake: IV 0 / 0 Oral 300 / 300 480 / 480 Output: Urine 400 / 400 Other: # Incontinent Voids 2 Date of Last Bowel Movement 12/05/17 # Bowel Movements 2 Narrative: GENERAL: Morbidly obese, alert and oriented 3 SKIN: Warm and dry. HEAD: Normocephalic. EYES: No scleral icterus. No injection or drainage. NECK: Supple, trachea midline. No JVD or lymphadenopathy. CARDIOVASCULAR: Regular rate and rhythm without murmurs, gallops, or rubs. RESPIRATORY: Breath sounds equal bilaterally. No accessory muscle use. GASTROINTESTINAL: Abdomen soft, non-tender, nondistended. MUSCULOSKELETAL: No cyanosis, or edema. Right wrist shows moderate swelling and warmth, no erythema BACK: Nontender without obvious deformity. No CVA tenderness. - Urinary Catheter Management Indwelling Urethral Catheter Cath placed during this visit: yes Reason for continuing: Hourly intake/output Insertion date: 11/27/17 Insertion time: 02:36 Results - Labs CBC & Chem 7: 12/06/17 05:50 12/06/17 05:50 Laboratory Results - last 24 hr 12/06/17 12/06/17 05:50 05:50 WBC 7.5 RBC 4.07 Hgb 8.3 L Hct 27.8 L MCV 68.4 L MCH 20.3 L MCHC 29.7 L RDW 33.6 H Plt Count 224 MPV 8.3 Sodium 137 Potassium 3.9 Chloride 99 Carbon Dioxide 36.5 H Anion Gap 2 L BUN 8 Creatinine 0.39 L Estimated GFR Greater than 89 Random Glucose 97 Calcium 8.0 L Assessment and Plan - Assessment (1) Anemia Code(s): D64.9 - Anemia, unspecified Status: Acute Plan: Status post 5 units packed red blood cells, hemoglobin improved 7.6 today, Status post IV iron GI consult appreciated, endoscopy and colonoscopy results in EMR pelvic ultrasound unremarkable, security assurance analyst consult appreciated Normal TSH (2) Abdominal pain Code(s): R10.9 - Unspecified abdominal pain Status: Acute Plan: Pannicular edema likely. Continue with Lasix and encourage ambulation (3) Weakness Code(s): R53.1 - Weakness Status: Acute Plan: Continue with PT efforts Bariatric walker requested Patient education (4) Respiratory insufficiency Code(s): R06.89 - Other abnormalities of breathing Status: Acute Plan: With hypoxemic, hypercapnic resp failure hypoventilation and hypoxemia, pulmonary hypertension right-sided Pulmonary consult appreciated, likely restrictive pulmonary disease. PFTs pending Continue to wean oxygen off, BiPAP overnight Lasix daily (5) Pulmonary hypertension Code(s): I27.20 - Pulmonary hypertension, unspecified Status: Acute Plan: PA pressures 75. Continue Lasix Patient education provided Patient will need follow-up, pulmonary consult appreciate Continue O2 (6) Chest pain Code(s): R07.9 - Chest pain, unspecified Status: Acute Plan: likely gi, initially improved with Maalox and Protonix (patient with gastritis on endoscopy) Lexiscan negative - Plan Generalized weakness Slowly regaining strength Continue with PT Anemia Patient received 5 units of packed red blood cells since admission She also received IV iron bolus Appreciate GI consult Appreciate gynecology consult Hemoglobin is stable at 8.3 Menometrorrhagia Daily passage of vaginal clots Hemoglobin appears stable Previously assessed by gynecology who recommends outpatient follow-up Pelvic ultrasound is within normal limits if she is premenopausal We will consider estrogen and progesterone levels with next lab draw to determine whether she is postmenopausal Right wrist swelling Infiltration during blood transfusions Improving clinically, less swelling, less pain Continue Keflex for now Abdominal pain Pannicular edema most likely, continue with Lasix Encourage ambulation Respiratory insufficiency and pulmonary hypertension Hypoxemia and evidence of sleep apnea PA pressure is 75 PFTs are pending, weaning off of oxygen Continue with BiPAP overnight Continue with Lasix Appreciate pulmonology consult DVT prophylaxis Lovenox Discharge planning Patient is nonambulatory at this time, has no coverage (1) Anemia Qualifiers: Anemia type: iron deficiency Iron deficiency anemia type: unspecified iron deficiency Qualified Code(s): D50.9 - Iron deficiency anemia, unspecified
[2017-12-06] MEDS: Temazepam 15 MG Capsule PO PRN (22:49)
[2017-12-07] MEDS: ALPRAZolam 0.5 MG Tablet PO PRN ×3 (05:47→23:11)
[2017-12-07] MEDS: Furosemide 20 MG Tablet PO SCH (09:33)
[2017-12-07] MEDS: Senna/Docusate Sodium 8.6/50 MG Tablet PO SCH ×2 (09:33→21:39)
--- NOTE | 2017-12-07 11:30 | P.PN ---
Subjective Interval history: Patient complains that she had a bad episode with her CPAP machine, which by her history seem to induce a cough and wheezing following use. She states she is short of breath and cannot stop coughing. Physical Exam Vital signs: Vital Signs 12/06/17 12:00 12/06/17 14:00 12/06/17 20:00 Temperature 97.8 F 97.0 F L 97.6 F Pulse Rate 77 82 76 Respiratory Rate 20 19 20 Blood Pressure 171/79 H 141/68 H 149/80 H Pulse Oximetry 97 96 99 12/06/17 21:50 12/07/17 00:00 12/07/17 01:00 Temperature 97.7 F Pulse Rate 88 Respiratory Rate 20 Blood Pressure 159/83 H Pulse Oximetry 95 97 97 12/07/17 04:00 12/07/17 07:20 12/07/17 07:37 Temperature 97.1 F L Pulse Rate 82 Respiratory Rate 20 Blood Pressure 148/67 H Pulse Oximetry 97 93 L 96 12/07/17 11:03 Temperature 97 F L Pulse Rate 78 Respiratory Rate 20 Blood Pressure 142/64 H Pulse Oximetry 93 L Intake & Output 12/06/17 12/07/17 12/07/17 18:59 06:59 18:59 Intake Total 480 / 480 Output Total 901 / 901 Balance -901 / -901 480 / 480 Weight 191.8 kg Intake: Oral 480 / 480 Output: Urine 900 / 900 Stool / Other: # Voids 2 # Incontinent Voids 1 Date of Last Bowel Movement 12/05/17 Narrative: GENERAL: Morbidly obese, alert and oriented 3 SKIN: Warm and dry. HEAD: Normocephalic. EYES: No scleral icterus. No injection or drainage. NECK: Supple, trachea midline. No JVD or lymphadenopathy. CARDIOVASCULAR: Regular rate and rhythm without murmurs, gallops, or rubs. RESPIRATORY: Increased congestion compared to yesterday, mild scattered wheezing. No accessory muscle use. GASTROINTESTINAL: Abdomen soft, non-tender, nondistended. MUSCULOSKELETAL: No cyanosis, or edema. Right wrist shows moderate swelling and warmth, no erythema BACK: Nontender without obvious deformity. No CVA tenderness. - Urinary Catheter Management Indwelling Urethral Catheter Cath placed during this visit: yes Reason for continuing: Hourly intake/output Insertion date: 11/27/17 Insertion time: 02:36 Results - Labs CBC & Chem 7: 12/06/17 05:50 12/06/17 05:50 Assessment and Plan - Assessment (1) Anemia Code(s): D64.9 - Anemia, unspecified Status: Acute Plan: Status post 5 units packed red blood cells, hemoglobin improved 7.6 today, Status post IV iron GI consult appreciated, endoscopy and colonoscopy results in EMR pelvic ultrasound unremarkable, consulting practice manager consult appreciated Normal TSH (2) Abdominal pain Code(s): R10.9 - Unspecified abdominal pain Status: Acute Plan: Pannicular edema likely. Continue with Lasix and encourage ambulation (3) Weakness Code(s): R53.1 - Weakness Status: Acute Plan: Continue with PT efforts Bariatric walker requested Patient education (4) Respiratory insufficiency Code(s): R06.89 - Other abnormalities of breathing Status: Acute Plan: With hypoxemic, hypercapnic resp failure hypoventilation and hypoxemia, pulmonary hypertension right-sided Pulmonary consult appreciated, likely restrictive pulmonary disease. PFTs pending Continue to wean oxygen off, BiPAP overnight Lasix daily (5) Pulmonary hypertension Code(s): I27.20 - Pulmonary hypertension, unspecified Status: Acute Plan: PA pressures 75. Continue Lasix Patient education provided Patient will need follow-up, pulmonary consult appreciate Continue O2 (6) Chest pain Code(s): R07.9 - Chest pain, unspecified Status: Acute Plan: likely gi, initially improved with Maalox and Protonix (patient with gastritis on endoscopy) Lexiscan negative - Plan Generalized weakness Slowly regaining strength Continue with PT Anemia Patient received 5 units of packed red blood cells since admission She also received IV iron bolus Appreciate GI consult Appreciate gynecology consult Hemoglobin is stable at 8.3 Follow CBC in a.m. Cough with dyspnea Onset following CPAP use last night Start duo nebs as needed Chest x-ray now Reevaluate Follow CBC in a.m. Menometrorrhagia Daily passage of vaginal clots, reduced Hemoglobin appears stable Previously assessed by gynecology who recommends outpatient follow-up Pelvic ultrasound is within normal limits if she is premenopausal Right wrist swelling Infiltration during blood transfusions Swelling and pain again reduced Single 0.5 cm but remains which is likely a subcutaneous hematoma Recommend massaging the remaining spot Continue Keflex for now Abdominal pain Pannicular edema most likely, continue with Lasix Encourage ambulation Respiratory insufficiency and pulmonary hypertension Hypoxemia and evidence of sleep apnea PA pressure is 75 PFTs are pending, weaning off of oxygen Continue with BiPAP overnight Continue with Lasix Appreciate pulmonology consult DVT prophylaxis Lovenox Discharge planning Patient is nonambulatory at this time, has no coverage (1) Anemia Qualifiers: Anemia type: iron deficiency Iron deficiency anemia type: unspecified iron deficiency Qualified Code(s): D50.9 - Iron deficiency anemia, unspecified
--- NOTE | 2017-12-07 11:35 | XR ---
EXAM DATE: 12/07/2017 11:25 AM EDT AGE/SEX: 52 years / Female INDICATIONS: Cough, short of breath, chest tightness CLINICAL DATA: This is the patient's subsequent encounter. Patient reports that signs and symptoms h ave been present for 1 week and indicates a pain score of 0/10. MEDICAL/SURGICAL HISTORY: None. None. COMPARISON: [facility]PO, CHEST 1V SINGLE AP, 11/30/2017. . FINDINGS: A single AP view of the chest demonstrates the lungs to be symmetrically aerated without evidence of mass, infiltrate or effusion. The heart size remains prominent with no perihilar edema. Osseous stru ctures are intact. CONCLUSION: Stable appearance with no definite evidence of pneumonia on this single view study. Electronically signed by: Umesh Palencia MD 12/07/2017 11:34 AM EDT
[2017-12-08 06:41] LABS: Hematocrit 28.4 % (35.0-46.0); Hemoglobin 8.5 gm/dL (11.6-15.3); Mean Corpuscular Hemoglobin 20.5 pg (27.0-34.0); Mean Corpuscular Volume 68.9 fL (80.0-100.0); Mean Platelet Volume 8.4 fL (7.0-11.0); Platelet Count 245 th/mm3 (150-450); Red Blood Count 4.13 mil/mm3 (4.00-5.30); Red Cell Distribution Width 32.5 % (11.6-17.2); White Blood Count 6.2 th/mm3 (4.0-11.0)
[2017-12-08 06:48] LABS: Chloride 100 meq/L (98-107); Potassium 4.1 meq/L (3.5-5.1); Sodium 139 meq/L (136-145)
[2017-12-08 06:53] LABS: Calcium 8.3 mg/dL (8.5-10.1); Mean Corpuscular HGB Conc 29.8 % (32.0-36.0)
[2017-12-08 06:54] LABS: Anion Gap 3 meq/L (5-15); Blood Urea Nitrogen 7 mg/dL (7-18); Carbon Dioxide 35.8 meq/L (21.0-32.0); Glucose,Random 89 mg/dL (74-106)
[2017-12-08 06:57] LABS: Glomerular Filtration Rate Greater Than 89 mL/min (>89)
[2017-12-08] MEDS: Senna/Docusate Sodium 8.6/50 MG Tablet PO SCH ×2 (09:16→21:12)
[2017-12-08] MEDS: Furosemide 20 MG Tablet PO SCH (09:16)
--- NOTE | 2017-12-08 15:17 | P.PN ---
Subjective Interval history: Patient had improvements in her physical ability again. She ambulated 25 steps. Later in the day she developed abdominal pain and states she has trouble passing gas and feels bloated. She complains of abdominal pain. Physical Exam Vital signs: Vital Signs 12/07/17 20:00 12/07/17 20:38 12/07/17 22:15 Temperature 97.6 F Pulse Rate 86 89 Respiratory Rate 20 20 Blood Pressure 169/76 H Pulse Oximetry 97 95 12/08/17 00:00 12/08/17 08:00 12/08/17 12:00 Temperature 97.5 F L 98.5 F 97.5 F L Pulse Rate 88 86 80 Respiratory Rate 20 20 20 Blood Pressure 150/80 H 136/70 143/65 H Pulse Oximetry 90 L 94 L 96 Intake & Output 12/07/17 12/08/17 12/08/17 18:59 06:59 18:59 Intake Total 1320 / 1320 200 / 200 Output Total 2100 / 2100 650 / 650 Balance -780 / -780 -450 / -450 Weight 191.8 kg Intake: Oral 1320 / 1320 200 / 200 Output: Urine 2100 / 2100 650 / 650 Other: # Voids 2 Date of Last Bowel Movement 12/07/17 # Bowel Movements 1 2 Narrative: GENERAL: Morbidly obese, alert and oriented 3 SKIN: Warm and dry. HEAD: Normocephalic. EYES: No scleral icterus. No injection or drainage. NECK: Supple, trachea midline. No JVD or lymphadenopathy. CARDIOVASCULAR: Regular rate and rhythm without murmurs, gallops, or rubs. RESPIRATORY: Increased congestion compared to yesterday, mild scattered wheezing. No accessory muscle use. GASTROINTESTINAL: Abdomen soft, non-tender, nondistended. Hypoactive bowel sounds MUSCULOSKELETAL: No cyanosis, or edema. Right wrist shows moderate swelling and warmth, no erythema BACK: Nontender without obvious deformity. No CVA tenderness. - Urinary Catheter Management Indwelling Urethral Catheter Cath placed during this visit: yes Reason for continuing: Hourly intake/output Insertion date: 11/27/17 Insertion time: 02:36 Results - Labs CBC & Chem 7: 12/08/17 05:05 12/08/17 05:05 Laboratory Results - last 24 hr 12/08/17 12/08/17 05:05 05:05 WBC 6.2 RBC 4.13 Hgb 8.5 L Hct 28.4 L MCV 68.9 L MCH 20.5 L MCHC 29.8 L RDW 32.5 H Plt Count 245 MPV 8.4 Sodium 139 Potassium 4.1 Chloride 100 Carbon Dioxide 35.8 H Anion Gap 3 L BUN 7 Creatinine 0.40 L Estimated GFR Greater than 89 Random Glucose 89 Calcium 8.3 L FSH 3.2 Assessment and Plan - Assessment (1) Anemia Code(s): D64.9 - Anemia, unspecified Status: Acute Plan: Status post 5 units packed red blood cells, hemoglobin improved 7.6 today, Status post IV iron GI consult appreciated, endoscopy and colonoscopy results in EMR pelvic ultrasound unremarkable, obstetrician gynecologist consult appreciated Normal TSH (2) Abdominal pain Code(s): R10.9 - Unspecified abdominal pain Status: Acute Plan: Pannicular edema likely. Continue with Lasix and encourage ambulation (3) Weakness Code(s): R53.1 - Weakness Status: Acute Plan: Continue with PT efforts Bariatric walker requested Patient education (4) Respiratory insufficiency Code(s): R06.89 - Other abnormalities of breathing Status: Acute Plan: With hypoxemic, hypercapnic resp failure hypoventilation and hypoxemia, pulmonary hypertension right-sided Pulmonary consult appreciated, likely restrictive pulmonary disease. PFTs pending Continue to wean oxygen off, BiPAP overnight Lasix daily (5) Pulmonary hypertension Code(s): I27.20 - Pulmonary hypertension, unspecified Status: Acute Plan: PA pressures 75. Continue Lasix Patient education provided Patient will need follow-up, pulmonary consult appreciate Continue O2 (6) Chest pain Code(s): R07.9 - Chest pain, unspecified Status: Acute Plan: likely gi, initially improved with Maalox and Protonix (patient with gastritis on endoscopy) Lexiscan negative - Plan Generalized weakness Slowly regaining strength Continue with PT Anemia Patient received 5 units of packed red blood cells since admission She also received IV iron bolus Appreciate GI consult Appreciate gynecology consult Hemoglobin is stable, 8.3 previously, now 8.5 Cough with dyspnea Onset following CPAP use last night Duo nebs as needed Chest x-ray within normal limits No leukocytosis Menometrorrhagia Scant passage of vaginal clots currently Hemoglobin is stable Follicle-stimulating hormone is within normal limits for premenopausal woman Previously assessed by gynecology who recommends outpatient follow-up Pelvic ultrasound is within normal limits Right wrist swelling Resolved Abdominal pain, recurrent Pannicular edema speculated prior Patient developed abdominal pain again, reports reduced gas output Will add Ludy-Colace as needed and IV fluid hydration Patient is not eating or drinking at this time due to upset stomach Respiratory insufficiency and pulmonary hypertension Hypoxemia and evidence of sleep apnea PA pressure is 75 PFTs are pending, weaning off of oxygen Continue with BiPAP overnight Continue with Lasix Appreciate pulmonology consult DVT prophylaxis Lovenox Discharge planning Patient is nonambulatory at this time, has no coverage (1) Anemia Qualifiers: Anemia type: iron deficiency Iron deficiency anemia type: unspecified iron deficiency Qualified Code(s): D50.9 - Iron deficiency anemia, unspecified
[2017-12-08] MEDS: Sod Chloride 0.9% Inj 1,000 ML IV.CONT SCH (16:58)
--- NOTE | 2017-12-08 19:03 | P.PNPL ---
Subjective Interval history: 52 YOWF with COPD,ABIMBOLA likly, severe anemia On [place] Breathing better No CP, abd pain Uses 02 2lnc "They took my 02 off, i had tightness in chest" Physical Exam Vital signs: Vital Signs 12/07/17 20:00 12/07/17 20:38 12/07/17 22:15 Temperature 97.6 F Pulse Rate 86 89 Respiratory Rate 20 20 Blood Pressure 169/76 H Pulse Oximetry 97 95 12/08/17 00:00 12/08/17 08:00 12/08/17 12:00 Temperature 97.5 F L 98.5 F 97.5 F L Pulse Rate 88 86 80 Respiratory Rate 20 20 20 Blood Pressure 150/80 H 136/70 143/65 H Pulse Oximetry 90 L 94 L 96 12/08/17 16:00 Temperature 97.4 F L Pulse Rate 80 Respiratory Rate 20 Blood Pressure 136/68 Pulse Oximetry 98 Intake & Output 12/08/17 12/08/17 12/09/17 06:59 18:59 06:59 Intake Total 200 / 200 960 / 960 Output Total 650 / 650 1650 / 1650 Balance -450 / -450 -690 / -690 Weight 191.8 kg Intake: Oral 200 / 200 960 / 960 Output: Urine 650 / 650 1650 / 1650 Other: # Incontinent Voids 3 Date of Last Bowel Movement 12/07/17 12/08/17 # Bowel Movements 2 3 GENERAL: Morbidly obese WF,NAD SKIN: Warm and dry. HEAD: Normocephalic. EYES: No scleral icterus. No injection or drainage. NECK: Supple, trachea midline. No JVD or lymphadenopathy. CARDIOVASCULAR: Regular rate and rhythm without murmurs, gallops, or rubs. RESPIRATORY: Breath sounds equal bilaterally. No accessory muscle use. GASTROINTESTINAL: Abdomen soft, non-tender, nondistended. MUSCULOSKELETAL: No cyanosis, or edema. BACK: Nontender without obvious deformity. No CVA tenderness. - Urinary Catheter Management Indwelling Urethral Catheter Cath placed during this visit: yes Reason for continuing: Hourly intake/output Insertion date: 11/27/17 Insertion time: 02:36 Assessment and Plan - Plan IMPRESSION: 1. Shortness of breath and pulmonary hypertension. She is morbidly obese and symptoms are suggestive of underlying restrictive disease and sleep apnea. 2. Severe anemia. 3. Dyspnea. 4. Morbid obesity. 5. Hypertension. PLAN: Supplement 02 CPAP prn Aerosol nebs Monitor H/H Will need sleep study as out pt Physical therapy. DW Pt may need home 02
[2017-12-09] MEDS: Furosemide 20 MG Tablet PO SCH (09:25)
[2017-12-09] MEDS: Senna/Docusate Sodium 8.6/50 MG Tablet PO SCH ×2 (10:16→22:10)
--- NOTE | 2017-12-09 14:41 | P.PN ---
Subjective Interval history: Patient states that her abdominal pain is resolved. She had breakfast without any issues. She had an episode of hypoxemia yesterday down to 78% when she was off of oxygen for more than 15 minutes. She took oxygen off again this morning and saturated down to 87% within minutes. Physical Exam Vital signs: Vital Signs 12/08/17 16:00 12/08/17 19:30 12/08/17 20:00 Temperature 97.4 F L Pulse Rate 80 Respiratory Rate 20 Blood Pressure 136/68 Pulse Oximetry 98 98 98 12/08/17 20:29 12/09/17 00:18 12/09/17 08:00 Temperature 96.9 F L 96.7 F L 97.8 F Pulse Rate 79 76 81 Respiratory Rate 20 20 17 Blood Pressure 158/73 H 150/68 H 151/69 H Pulse Oximetry 96 96 94 L Intake & Output 12/08/17 12/09/17 12/09/17 18:59 06:59 18:59 Intake Total 960 / 960 1000 / 1000 Output Total 1650 / 1650 Balance -690 / -690 1000 / 1000 Weight 191.8 kg Intake: Oral 960 / 960 1000 / 1000 Output: Urine 1650 / 1650 Other: # Incontinent Voids 4 Date of Last Bowel Movement 12/08/17 # Bowel Movements 4 3 Narrative: GENERAL: Morbidly obese, alert and oriented 3 SKIN: Warm and dry. HEAD: Normocephalic. EYES: No scleral icterus. No injection or drainage. NECK: Supple, trachea midline. No JVD or lymphadenopathy. CARDIOVASCULAR: Regular rate and rhythm without murmurs, gallops, or rubs. RESPIRATORY: No significant congestion, mild scattered wheezing. No accessory muscle use. GASTROINTESTINAL: Abdomen soft, non-tender, nondistended. Normal active bowel sounds MUSCULOSKELETAL: No cyanosis, or edema. Right wrist shows moderate swelling and warmth, no erythema BACK: Nontender without obvious deformity. No CVA tenderness. - Urinary Catheter Management Indwelling Urethral Catheter Cath placed during this visit: yes Reason for continuing: Hourly intake/output Insertion date: 11/27/17 Insertion time: 02:36 Results - Labs CBC & Chem 7: 12/08/17 05:05 12/08/17 05:05 Laboratory Results - last 24 hr 12/08/17 17:38 D-Dimer Quant (PE/DVT) 1.70 H Assessment and Plan - Assessment (1) Anemia Code(s): D64.9 - Anemia, unspecified Status: Acute Plan: Status post 5 units packed red blood cells, hemoglobin improved 7.6 today, Status post IV iron GI consult appreciated, endoscopy and colonoscopy results in EMR pelvic ultrasound unremarkable, scheduling clerk consult appreciated Normal TSH (2) Abdominal pain Code(s): R10.9 - Unspecified abdominal pain Status: Acute Plan: Pannicular edema likely. Continue with Lasix and encourage ambulation (3) Weakness Code(s): R53.1 - Weakness Status: Acute Plan: Continue with PT efforts Bariatric walker requested Patient education (4) Respiratory insufficiency Code(s): R06.89 - Other abnormalities of breathing Status: Acute Plan: With hypoxemic, hypercapnic resp failure hypoventilation and hypoxemia, pulmonary hypertension right-sided Pulmonary consult appreciated, likely restrictive pulmonary disease. PFTs pending Continue to wean oxygen off, BiPAP overnight Lasix daily (5) Pulmonary hypertension Code(s): I27.20 - Pulmonary hypertension, unspecified Status: Acute Plan: PA pressures 75. Continue Lasix Patient education provided Patient will need follow-up, pulmonary consult appreciate Continue O2 (6) Chest pain Code(s): R07.9 - Chest pain, unspecified Status: Acute Plan: likely gi, initially improved with Maalox and Protonix (patient with gastritis on endoscopy) Lexiscan negative - Plan Generalized weakness Slowly regaining strength Continue with PT Anemia Patient received 5 units of packed red blood cells since admission She also received IV iron bolus Appreciate GI consult Appreciate gynecology consult Hemoglobin is stable, 8.5 last check Respiratory insufficiency and pulmonary hypertension, cough Hypoxemia and evidence of sleep apnea PA pressure is 75, PFTs are pending Difficulty weaning off of oxygen D-dimer is elevated, pulmonary angiogram ordered Continue with BiPAP overnight Continue with Lasix Chest x-ray within normal limits Appreciate pulmonology consult Menometrorrhagia Scant passage of vaginal clots currently Hemoglobin is stable Follicle-stimulating hormone is within normal limits for premenopausal woman Previously assessed by gynecology who recommends outpatient follow-up Pelvic ultrasound is within normal limits Right wrist swelling Resolved Abdominal pain, recurrent Pannicular edema speculated prior DVT prophylaxis Lovenox Discharge planning Patient is nonambulatory at this time, has no coverage (1) Anemia Qualifiers: Anemia type: iron deficiency Iron deficiency anemia type: unspecified iron deficiency Qualified Code(s): D50.9 - Iron deficiency anemia, unspecified
--- NOTE | 2017-12-09 14:48 | CT ---
EXAM DATE: 12/09/2017 2:42 PM EDT AGE/SEX: 52 years / Female INDICATIONS: Short of breath. CLINICAL DATA: This is the patient's initial encounter. Patient reports that signs and symptoms have been present for 2 days and indicates a pain score of 0/10. MEDICAL/SURGICAL HISTORY: None. None. RADIATION DOSE: 21.75 CTDI (mGy) ; Patient body habitus COMPARISON: No prior exams available for comparison. TECHNIQUE: Volumetric scanning was performed using a multi-row detector CT scanner during bolus infu daniele of 85 ml Omnipaque 350 (iohexol) nonionic water-soluble contrast as a single exam dose. The rimma a was post processed with a variety of visualization algorithms including full volume maximum intensi ty projection and sliding thin slab reformation. Using automated exposure control and adjustment of t he mA and/or kV according to patient size, radiation dose was kept as low as reasonably achievable to obtain optimal diagnostic quality images. DICOM format image data is available electronically for r eview and comparison. FINDINGS: Pulmonary Arteries: No filling defects are seen in the pulmonary arteries out to the subsegmental ve ssels. The left and right pulmonary arteries are normal in diameter. Lung: There are mild groundglass opacities throughout both lungs with no focal consolidation or mass . Effusion: Small bilateral pleural effusions. Mediastinum: No evidence of mediastinal or hilar adenopathy. There is mild cardiomegaly. Other: The axilla is unremarkable. CONCLUSION: 1. No evidence of pulmonary embolism. 2. Small bilateral pleural effusions. 3. Mild groundglass opacities in both lungs which could indicate underlying interstitial lung diseas e. 4. Mild cardiomegaly. Electronically signed by: Umesh Palencia MD 12/09/2017 2:46 PM EDT
[2017-12-09] MEDS: Sod Chloride 0.9% Inj 1,000 ML IV.CONT SCH (17:16)
--- NOTE | 2017-12-09 18:26 | P.PNPL ---
Subjective Interval history: 52 YOWF with COPD,ABIMBOLA likly, severe anemia On [place] Breathing better No CP, abd pain Uses 02 2lnc "They took my 02 off, i had tightness in chest" Had CTA, no PE, has small pl eff, ground glass infilt Physical Exam Vital signs: Vital Signs 12/08/17 19:30 12/08/17 20:00 12/08/17 20:29 Temperature 96.9 F L Pulse Rate 79 Respiratory Rate 20 Blood Pressure 158/73 H Pulse Oximetry 98 98 96 12/09/17 00:18 12/09/17 08:00 12/09/17 12:00 Temperature 96.7 F L 97.8 F 97.3 F L Pulse Rate 76 81 85 Respiratory Rate 20 17 17 Blood Pressure 150/68 H 151/69 H 155/70 H Pulse Oximetry 96 94 L 97 Intake & Output 12/08/17 12/09/17 12/09/17 18:59 06:59 18:59 Intake Total 960 / 960 1000 / 1000 336 / 336 Output Total 1650 / 1650 Balance -690 / -690 1000 / 1000 336 / 336 Weight 191.8 kg Intake: IV 336 / 336 NS Inj 1,000 ML @ 42 mls/hr IV. 336 / 336 CONT .[id number] OZZY Rx#: [id number] Oral 960 / 960 1000 / 1000 Output: Urine 1650 / 1650 Other: # Incontinent Voids 4 Date of Last Bowel Movement 12/08/17 # Bowel Movements 4 3 GENERAL: Obese WF, anxious, mild sob SKIN: Warm and dry. HEAD: Normocephalic. EYES: No scleral icterus. No injection or drainage. NECK: Supple, trachea midline. No JVD or lymphadenopathy. CARDIOVASCULAR: Regular rate and rhythm without murmurs, gallops, or rubs. RESPIRATORY: Breath sounds equal bilaterally. No accessory muscle use. GASTROINTESTINAL: Abdomen soft, non-tender, nondistended. MUSCULOSKELETAL: No cyanosis, or edema. BACK: Nontender without obvious deformity. No CVA tenderness. - Urinary Catheter Management Indwelling Urethral Catheter Cath placed during this visit: yes Reason for continuing: Hourly intake/output Insertion date: 11/27/17 Insertion time: 02:36 Assessment and Plan - Plan IMPRESSION: 1. Shortness of breath and pulmonary hypertension. She is morbidly obese and symptoms are suggestive of underlying restrictive disease and sleep apnea. 2. Severe anemia. 3. Dyspnea. 4. Morbid obesity. 5. Hypertension. . Hypoxia, ground glass infilt, likly alveolitis PLAN: Supplement 02 CPAP prn Aerosol nebs Monitor H/H Will need sleep study as out pt Physical therapy. DW Pt may need home 02 Will add Pred 20 mg bid
[2017-12-09] MEDS: predniSONE 20 MG Tablet PO SCH (22:10)
[2017-12-10] MEDS: predniSONE 20 MG Tablet PO SCH ×2 (09:37→21:41)
[2017-12-10] MEDS: Furosemide 20 MG Tablet PO SCH (09:37)
[2017-12-10] MEDS: Senna/Docusate Sodium 8.6/50 MG Tablet PO SCH ×2 (09:37→21:42)
--- NOTE | 2017-12-10 11:55 | P.PN ---
Subjective Interval history: Patient complains today of discomfort from her diaper that interfered with sleep. Prior to that she had an external catheter which also caused discomfort vaginally. She feels like she is breathing at her baseline. Still dependent on oxygen. Physical Exam Vital signs: Vital Signs 12/09/17 12:00 12/09/17 16:00 12/09/17 22:02 Temperature 97.3 F L 98.9 F 98.5 F Pulse Rate 85 89 91 H Respiratory Rate 17 17 20 Blood Pressure 155/70 H 144/70 H 138/70 Pulse Oximetry 97 96 97 12/10/17 00:00 12/10/17 08:00 Temperature 97.1 F L 96.2 F L Pulse Rate 79 Respiratory Rate 20 20 Blood Pressure 158/73 H 141/63 H Pulse Oximetry 96 95 Intake & Output 12/09/17 12/10/17 12/10/17 18:59 06:59 18:59 Intake Total 1296 / 1296 200 / 200 Output Total 1999 Balance -704 / -704 200 / 200 Weight 191.8 kg Intake: IV 336 / 336 NS Inj 1,000 ML @ 42 mls/hr IV. 336 / 336 CONT .[id number] OZZY Rx#: [id number] Oral 960 / 960 200 / 200 Output: Urine 1999 Other: # Incontinent Voids 2 Date of Last Bowel Movement 12/09/17 # Bowel Movements 6 2 Narrative: GENERAL: Morbidly obese, alert and oriented 3 SKIN: Warm and dry. HEAD: Normocephalic. EYES: No scleral icterus. No injection or drainage. NECK: Supple, trachea midline. No JVD or lymphadenopathy. CARDIOVASCULAR: Regular rate and rhythm without murmurs, gallops, or rubs. RESPIRATORY: No significant congestion, mild scattered wheezing. No accessory muscle use. GASTROINTESTINAL: Abdomen soft, non-tender, nondistended. Normal active bowel sounds MUSCULOSKELETAL: No cyanosis, or edema. Right wrist shows moderate swelling and warmth, no erythema BACK: Nontender without obvious deformity. No CVA tenderness. - Urinary Catheter Management Indwelling Urethral Catheter Cath placed during this visit: yes Reason for continuing: Hourly intake/output Insertion date: 11/27/17 Insertion time: 02:36 Results - Labs CBC & Chem 7: 12/08/17 05:05 12/08/17 05:05 - Imaging Impressions Chest CTA 12/09/17 00:00 CONCLUSION: 1. No evidence of pulmonary embolism. 2. Small bilateral pleural effusions. 3. Mild groundglass opacities in both lungs which could indicate underlying interstitial lung disease. 4. Mild cardiomegaly. Assessment and Plan - Assessment (1) Anemia Code(s): D64.9 - Anemia, unspecified Status: Acute Plan: Status post 5 units packed red blood cells, hemoglobin improved 7.6 today, Status post IV iron GI consult appreciated, endoscopy and colonoscopy results in EMR pelvic ultrasound unremarkable, rn gyn consult appreciated Normal TSH (2) Abdominal pain Code(s): R10.9 - Unspecified abdominal pain Status: Acute Plan: Pannicular edema likely. Continue with Lasix and encourage ambulation (3) Weakness Code(s): R53.1 - Weakness Status: Acute Plan: Continue with PT efforts Bariatric walker requested Patient education (4) Respiratory insufficiency Code(s): R06.89 - Other abnormalities of breathing Status: Acute Plan: With hypoxemic, hypercapnic resp failure hypoventilation and hypoxemia, pulmonary hypertension right-sided Pulmonary consult appreciated, likely restrictive pulmonary disease. PFTs pending Continue to wean oxygen off, BiPAP overnight Lasix daily (5) Pulmonary hypertension Code(s): I27.20 - Pulmonary hypertension, unspecified Status: Acute Plan: PA pressures 75. Continue Lasix Patient education provided Patient will need follow-up, pulmonary consult appreciate Continue O2 (6) Chest pain Code(s): R07.9 - Chest pain, unspecified Status: Acute Plan: likely gi, initially improved with Maalox and Protonix (patient with gastritis on endoscopy) Lexiscan negative - Plan Generalized weakness Slowly regaining strength Continue with PT Anemia Patient received 5 units of packed red blood cells, also IV iron since admission Appreciate GI consult Appreciate gynecology consult Following CBC every other day, stable in the 8's Respiratory insufficiency and pulmonary hypertension, cough Hypoxemia and evidence of sleep apnea PA pressure is 75, PFTs are pending Difficulty weaning off of oxygen Continue with BiPAP overnight Continue with Lasix Pulmonary angiogram was negative for DVT but did show groundglass opacities throughout lungs Pulmonology added prednisone 20 mg daily to patient's regimen, will follow clinically Appreciate pulmonology consult Menometrorrhagia Scant passage of vaginal clots currently Follicle-stimulating hormone is within normal limits for premenopausal woman Previously assessed by gynecology who recommends outpatient follow-up Pelvic ultrasound is within normal limits Hemoglobin is remaining stable Right wrist swelling Resolved Abdominal pain, recurrent Pannicular edema speculated DVT prophylaxis Lovenox Discharge planning Patient is nonambulatory at this time, has no coverage (1) Anemia Qualifiers: Anemia type: iron deficiency Iron deficiency anemia type: unspecified iron deficiency Qualified Code(s): D50.9 - Iron deficiency anemia, unspecified
[2017-12-10 16:39] LABS: Bilirubin,Urine Negative (Negative); Clarity,Urine Clear (Clear); Glucose,Urine (UA) Negative (Negative); Leukocyte Esterase,Urine Negative (Negative); Nitrite,Urine Negative (Negative); PH,Urine 7.5 (5.0-8.5); Urobilinogen,Urine 0.2 mg/dL (Less than 2)
[2017-12-10 16:40] LABS: Color,Urine Straw (Yellw/Straw)
[2017-12-10 17:11] LABS: RBC,Urine Innumerable /hpf (0-3); Squamous Epithelial Cell,Urine 0-5 /hpf (0-5); WBC,Urine 0-5 /hpf (0-5)
--- NOTE | 2017-12-10 17:40 | P.PNPL ---
Subjective Interval history: 52 YOWF with COPD,ABIMBOLA likly, severe anemia On [place] Breathing better No CP, abd pain Uses 02 2lnc " I walked to commode by myself" Physical Exam Vital signs: Vital Signs 12/09/17 22:02 12/10/17 00:00 12/10/17 08:00 Temperature 98.5 F 97.1 F L 96.2 F L Pulse Rate 91 H 79 Respiratory Rate 20 20 20 Blood Pressure 138/70 158/73 H 141/63 H Pulse Oximetry 97 96 95 12/10/17 12:00 12/10/17 16:00 Temperature 96.9 F L 97.6 F Pulse Rate 87 85 Respiratory Rate 20 20 Blood Pressure 163/70 H 153/69 H Pulse Oximetry 97 97 Intake & Output 12/09/17 12/10/17 12/10/17 18:59 06:59 18:59 Intake Total 1296 / 1296 200 / 200 664 / 664 Output Total 1999 Balance -704 / -704 200 / 200 664 / 664 Weight 191.8 kg Intake: IV 336 / 336 664 / 664 NS Inj 1,000 ML @ 42 mls/hr IV. 336 / 336 CONT .[id number] OZZY Rx#: [id number] Oral 960 / 960 200 / 200 Output: Urine 1999 Other: # Incontinent Voids 2 Date of Last Bowel Movement 12/09/17 12/10/17 # Bowel Movements 6 2 GENERAL:Morbidly obese WF,NAD SKIN: Warm and dry. HEAD: Normocephalic. EYES: No scleral icterus. No injection or drainage. NECK: Supple, trachea midline. No JVD or lymphadenopathy. CARDIOVASCULAR: Regular rate and rhythm without murmurs, gallops, or rubs. RESPIRATORY: Breath sounds equal bilaterally. No accessory muscle use. GASTROINTESTINAL: Abdomen soft, non-tender, nondistended. MUSCULOSKELETAL: No cyanosis, or edema. BACK: Nontender without obvious deformity. No CVA tenderness. - Urinary Catheter Management Indwelling Urethral Catheter Cath placed during this visit: yes Reason for continuing: Hourly intake/output Insertion date: 11/27/17 Insertion time: 02:36 Assessment and Plan - Plan IMPRESSION: 1. Shortness of breath and pulmonary hypertension. She is morbidly obese and symptoms are suggestive of underlying restrictive disease and sleep apnea. 2. Severe anemia. 3. Dyspnea. 4. Morbid obesity. 5. Hypertension. . Hypoxia, ground glass infilt, likly alveolitis . PLAN: Supplement 02 CPAP prn Aerosol nebs Monitor H/H Will need sleep study as out pt Physical therapy. DW Pt may need home 02 Pred 20 mg bid
[2017-12-11 07:24] LABS: Hematocrit 28.5 % (35.0-46.0); Hemoglobin 8.8 gm/dL (11.6-15.3); Mean Platelet Volume 8.2 fL (7.0-11.0); Platelet Count 332 th/mm3 (150-450); Red Blood Count 4.18 mil/mm3 (4.00-5.30); Red Cell Distribution Width 32.3 % (11.6-17.2); White Blood Count 7.4 th/mm3 (4.0-11.0)
[2017-12-11 07:28] LABS: Mean Corpuscular HGB Conc 30.9 % (32.0-36.0)
[2017-12-11 07:30] LABS: Chloride 98 meq/L (98-107); Potassium 4.4 meq/L (3.5-5.1); Sodium 137 meq/L (136-145)
[2017-12-11 07:34] LABS: Anion Gap 6 meq/L (5-15); Blood Urea Nitrogen 13 mg/dL (7-18); Calcium 8.5 mg/dL (8.5-10.1); Carbon Dioxide 33.5 meq/L (21.0-32.0); Glucose,Random 116 mg/dL (74-106)
[2017-12-11 07:38] LABS: Glomerular Filtration Rate Greater Than 89 mL/min (>89)
[2017-12-11] MEDS: predniSONE 20 MG Tablet PO SCH ×2 (08:03→20:10)
[2017-12-11] MEDS: Furosemide 20 MG Tablet PO SCH (08:03)
[2017-12-11] MEDS: Senna/Docusate Sodium 8.6/50 MG Tablet PO SCH ×2 (08:04→20:10)
--- NOTE | 2017-12-11 12:56 | P.PNIM ---
Subjective Interval history: Seen and evaluated in follow-up from previous encounter. Improved oxygenation and now on room air. Patient's weight is improved. Patient remains minimally motivated and has poor attempts at problem solving. Care plan discussed with physical therapy team reports patient has improved status with DME. Physical Exam Vital signs: Vital Signs 12/10/17 16:00 12/10/17 20:00 12/11/17 00:00 Temperature 97.6 F 97.6 F 97.8 F Pulse Rate 85 86 84 Respiratory Rate 20 20 20 Blood Pressure 153/69 H 146/72 H 138/65 Pulse Oximetry 97 97 95 12/11/17 07:30 12/11/17 07:55 12/11/17 08:03 Temperature Pulse Rate Respiratory Rate Blood Pressure Pulse Oximetry 99 94 L 94 L 12/11/17 08:06 Temperature 98.1 F Pulse Rate 71 Respiratory Rate 20 Blood Pressure 143/65 H Pulse Oximetry 97 Intake & Output 12/10/17 12/11/17 12/11/17 18:59 06:59 18:59 Intake Total 1404 / 1404 240 / 240 Output Total 3700 / 3700 800 / 800 300 / 300 Balance -2296 / -2296 -800 / -800 -60 / -60 Intake: IV 664 / 664 Oral 740 / 740 240 / 240 Output: Urine 3700 / 3700 800 / 800 300 / 300 Other: # Voids 3 Date of Last Bowel Movement 12/10/17 12/11/17 # Bowel Movements 4 1 Narrative: GENERAL: Patient calm resting and without complaints SKIN: Warm and dry. No rashes or ecchymotic injuries EYES: Pupils equal and round. No scleral icterus. No injection or drainage. ENT: External ear exam normal. No acute nasal bleeding or discharge. Mucous membranes pink and moist. CARDIOVASCULAR: Regular rate and rhythm. No murmurs gallops or rubs appreciated RESPIRATORY: Good air flow and effort without accessory muscle use. Clear to auscultation. Breath sounds equal bilaterally. GASTROINTESTINAL: Abdomen soft, non-tender, nondistended. Hepatic and splenic margins not palpable. MUSCULOSKELETAL: Extremities without clubbing, cyanosis, or edema. No obvious deformities. NEUROLOGICAL: Awake and alert. No obvious cranial nerve deficits. Motor grossly within normal limits. Five out of 5 muscle strength in the arms and legs. Normal speech. - Urinary Catheter Management Indwelling Urethral Catheter Cath placed during this visit: yes Reason for continuing: Hourly intake/output Insertion date: 11/27/17 Insertion time: 02:36 Results - Labs CBC & Chem 7: 12/11/17 05:50 12/11/17 05:50 Laboratory Results - last 24 hr 12/08/17 12/10/17 12/11/17 05:05 15:00 05:50 WBC 7.4 RBC 4.18 Hgb 8.8 L Hct 28.5 L MCV 68.0 L MCH 21.0 L MCHC 30.9 L RDW 32.3 H Plt Count 332 D MPV 8.2 Sodium Potassium Chloride Carbon Dioxide Anion Gap BUN Creatinine Estimated GFR Random Glucose Calcium Estradiol High Sensitv 25 Urine Color Straw Urine Clarity Clear Urine pH 7.5 Ur Specific Stanton 1.010 Urine Protein Negative Urine Glucose (UA) Negative Urine Ketones Negative Urine Occult Blood Large H Urine Nitrate Negative Urine Bilirubin Negative Urine Urobilinogen 0.2 Ur Leukocyte Esterase Negative Urine RBC Innumerable H Urine WBC 0-5 Ur Squamous Epith Cells 0-5 Micro UA Comment Culture not ind Urine Culture Comments Culture not ind 12/11/17 05:50 WBC RBC Hgb Hct MCV MCH MCHC RDW Plt Count MPV Sodium 137 Potassium 4.4 Chloride 98 Carbon Dioxide 33.5 H Anion Gap 6 BUN 13 Creatinine 0.38 L Estimated GFR Greater than 89 Random Glucose 116 H Calcium 8.5 Estradiol High Sensitv Urine Color Urine Clarity Urine pH Ur Specific Stanton Urine Protein Urine Glucose (UA) Urine Ketones Urine Occult Blood Urine Nitrate Urine Bilirubin Urine Urobilinogen Ur Leukocyte Esterase Urine RBC Urine WBC Ur Squamous Epith Cells Micro UA Comment Urine Culture Comments Assessment and Plan - Assessment (1) Anemia Code(s): D64.9 - Anemia, unspecified Status: Acute Plan: Likely secondary to menorrhagia, status post 5 units packed red blood cells Reports bleeding currently. (2) Abdominal pain Code(s): R10.9 - Unspecified abdominal pain Status: Acute Plan: may be ligamentous strain, encourage mobility (3) Weakness Code(s): R53.1 - Weakness Status: Acute Plan: Continue with PT efforts Bariatric walker provided in house, patient will need to provide home DME Patient education (4) Respiratory insufficiency Code(s): R06.89 - Other abnormalities of breathing Status: Acute Plan: Patient with pulmonary hypertension, improved with diuresis Off oxygen Will need sleep study as out pt she does tend to retain CO2, nonadherent with BiPAP Will need outpatient prednisone (5) Pulmonary hypertension Code(s): I27.20 - Pulmonary hypertension, unspecified Status: Acute Plan: PA pressures 75. Continue Lasix Patient education provided Patient will need follow-up, pulmonary consult appreciate - Plan Discharge Planning: dc in am pending clinical improvement (1) Anemia Qualifiers: Anemia type: iron deficiency Iron deficiency anemia type: unspecified iron deficiency Qualified Code(s): D50.9 - Iron deficiency anemia, unspecified
--- NOTE | 2017-12-11 19:30 | P.PNPL ---
Subjective Interval history: 52 YOWF with COPD,ABIMBOLA likly, severe anemia On [place] Breathing better No CP, abd pain " I am going home tommorrow" Physical Exam Vital signs: Vital Signs 12/10/17 20:00 12/11/17 00:00 12/11/17 07:30 Temperature 97.6 F 97.8 F Pulse Rate 86 84 Respiratory Rate 20 20 Blood Pressure 146/72 H 138/65 Pulse Oximetry 97 95 99 Pulse Oximetry [Exertion on Room Air] Pulse Oximetry [Resting on Room Air] 12/11/17 07:55 12/11/17 08:03 12/11/17 08:06 Temperature 98.1 F Pulse Rate 71 Respiratory Rate 20 Blood Pressure 143/65 H Pulse Oximetry 94 L 94 L 97 Pulse Oximetry [Exertion on Room Air] Pulse Oximetry [Resting on Room Air] 12/11/17 12:00 12/11/17 15:21 12/11/17 17:34 Temperature 97.6 F 97.0 F L Pulse Rate 71 76 Respiratory Rate 22 21 Blood Pressure 178/63 H 176/79 H Pulse Oximetry 96 96 Pulse Oximetry [Exertion on Room Air] 91 L Pulse Oximetry [Resting on Room Air] 97 Intake & Output 12/11/17 12/11/17 12/12/17 06:59 18:59 06:59 Intake Total 1440 / 1440 Output Total 800 / 800 4207 / 4207 Balance -800 / -800 -2767 / -2767 Intake: Oral 1440 / 1440 Output: Urine 800 / 800 4200 / 4200 Stool 7 / 7 Other: Date of Last Bowel Movement 12/11/17 # Bowel Movements 1 GENERAL: Obese WF,NAD, On RA SKIN: Warm and dry. HEAD: Normocephalic. EYES: No scleral icterus. No injection or drainage. NECK: Supple, trachea midline. No JVD or lymphadenopathy. CARDIOVASCULAR: Regular rate and rhythm without murmurs, gallops, or rubs. RESPIRATORY: Breath sounds equal bilaterally. No accessory muscle use. GASTROINTESTINAL: Abdomen soft, non-tender, nondistended. MUSCULOSKELETAL: No cyanosis, or edema. BACK: Nontender without obvious deformity. No CVA tenderness. - Urinary Catheter Management Indwelling Urethral Catheter Cath placed during this visit: yes Reason for continuing: Hourly intake/output Insertion date: 11/27/17 Insertion time: 02:36 Assessment and Plan - Plan IMPRESSION: 1. Shortness of breath and pulmonary hypertension. She is morbidly obese and symptoms are suggestive of underlying restrictive disease and sleep apnea. 2. Severe anemia. 3. Dyspnea. 4. Morbid obesity. 5. Hypertension. . Hypoxia, ground glass infilt, likly alveolitis . PLAN: Supplement 02 CPAP prn Aerosol nebs Monitor H/H Will need sleep study as out pt Physical therapy. DW Pt DC Plans underway
[2017-12-11] MEDS: Temazepam 15 MG Capsule PO PRN (20:10)
[2017-12-11] MEDS: Acetaminophen 325 MG Tablet PO PRN (22:28)
[2017-12-12 08:47] VITALS: BP 167/73; PULSE 71; RESP 18; TEMP 97.9; O2SAT 96
[2017-12-12] MEDS: Senna/Docusate Sodium 8.6/50 MG Tablet PO SCH (08:54)
[2017-12-12] MEDS: predniSONE 20 MG Tablet PO SCH (08:54)
[2017-12-12] MEDS: Furosemide 20 MG Tablet PO SCH (08:54)
== END 2017-12-12 12:50 | disposition home or self-care (01) ==
LOC: PHED 20:26 → PHEDA 11-27 01:17 → PHEDH 11-27 05:17 → PHICU 11-27 08:48 → PH3 11-28 19:50 → PHICU 12-01 16:03 → PH3 12-03 19:25
PROVIDERS: ADMIT Hospitalist; ATTEND Hospitalist
PROC: COLONOS (2017-11-28 16:00)

== ENCOUNTER 2018-01-04 20:21 | Inpatient (IN) ==
[2018-01-04] MEDS ORDERED: Sodium Chlor 0.9% Inj 500 ML IV.SIG ONE (21:06)
[2018-01-04] MEDS ORDERED: Morphine Inj 4 MG/ML Vial IV.PUSH ONE (21:06)
--- NOTE | 2018-01-04 21:44 | ED ---
HPI General Chief complaint: Chest Pain Stated complaint: sob/chest pain Time Seen by Provider: 01/04/18 20:43 Source: patient Limitations: no limitations History of Present Illness HPI narrative: The patient is a 53 year old female who presents to the [facility] emergency department with a history of reportedly feeling unwell again since yesterday. The patient reports that yesterday she began to have intermittent chills and lower abdominal pain. She reports that the lower abdominal pain is intermittent and a cramping sensation. She reports that it occurs when she urinates or when she moves her bowels. She reports that she has moved her bowels more frequently today and 1 of her bowel movements was actually bloody prompting the visit to the emergency department. She reports that she was just discharged from the hospital after a 15 day admission in November. She was discharged on December 12. She reports that she is uninsured and has not been able to follow-up with a primary care physician or the vermin exterminator that she saw as an inpatient the patient was admitted to the hospital with a hemoglobin of 4.4. She had 2 colonoscopies done and multiple polyps were removed as well as hemorrhoids were diagnosed. She reports that her vermin exterminator, called her recently and told her that 1 of the polyps was abnormal and she would need additional testing done. The patient reports that she was discharged home with a prescription for steroid. She does not know why. She reports that she was weaned off of the steroid and completed the course. She reports that she was also discharged home with a water pill and instructed to take a low-dose aspirin every 6 hours. She reports that she was diagnosed with pulmonary hypertension. She reports that prior to that admission to the hospital she was having chest pain. She reports that she continues to have a chest pressure when she lies down. She reports that since yesterday she has had shortness of breath that has been persistent associated with dizziness and lightheaded sensation. She reports that she also is appearing more pale again. She reports that during her hospitalization in November she had 9 units of packed red blood cells transfused. She reports having nausea vomiting 2 today. She was unaware that she was febrile but arrives with a temp of 102. She reports that this evening she is also had 3 episodes of sharp pain in the left upper back near her shoulder blade. She reports that today she has begun to have a cough that is productive of white sputum. On review of systems otherwise, the patient denies having any neck pain, or neurologic symptoms. Incidentally, the patient additionally reports having dysuria since starting on her water pill. She reports that she did have a Vela catheter in place for 1 week of her hospitalization. Related Data Home Medications Medication Instructions Recorded Confirmed aspirin 324 mg PO Q6HR 11/26/17 01/04/18 ferrous sulfate 325 mg PO DAILY 01/04/18 01/04/18 Previous Rx's Medication Instructions Recorded furosemide 20 mg PO DAILY #30 tab 12/12/17 Allergies Allergy/AdvReac Type Severity Reaction Status Date / Time No Known Allergies Allergy Verified 01/04/18 20:30 Review of Systems ROS: all other systems reviewed are negative (Except for that which was mentioned in her HPI.) [facility] Medical History Medical History Anemia (Acute) CAD (coronary artery disease) (Acute) PAD (peripheral artery disease) (Acute) Surgical History Surgical History No history of previous surgery (Acute) Family History Family History Other CAD (coronary artery disease) Colon cancer Dementia Diabetes mellitus Throat cancer Social History Social History Substance History: No History of Abuse Second Hand Smoke Exposure: No Smoking Status: Never smoker How Often Do You Have a Drink Containing Alcohol: Never Recent Travel in [facility] within the Last 8 Weeks: No Recent Out of Country Travel within the Last 8 Weeks: No Immunization History Tetanus Immunization: <5 Years Hx Influenza Vaccine This Season: Yes Exam Const General: cooperative, no acute distress and well developed Nutritional Appearance: obese Orientation: alert, awake and oriented x3 HENMT Head: normocephalic and atraumatic Nose: no nasal discharge and no epistaxis Mouth: moist mucous membranes Throat: posterior oropharynx normal and uvula midline Eyes Sclera: normal sclerae Pupils: PERRL Neck Neck: no meningeal signs, trachea midline and no JVD Resp Effort & Inspection: no use of accessory muscles Auscultation: clear to auscultation bilaterally Cardio Rate: tachycardic (Sinus tachycardia in the 1 teens, no pulse deficits to the extremities on simultaneous auscultation and palpation of her radial artery.) Rhythm: regular rhythm Heart Sounds: no murmurs GI Inspection: non-distended Palpation: soft, no hepatosplenomegaly and nontender Auscultation: normal bowel sounds Rectal Exam: visual inspection normal, normal sphincter tone, No tenderness and other (Brown stool that is Hemoccult positive.) Back/Spine/Pelvis Back: no CVA tenderness Skin General: dry skin (warm) Neuro General: alert, awake and oriented x3 Cranial Nerves: other (No facial asymmetry.) Speech: speech normal Motor: no movement abnormalities noted Extrem General: normal to inspection (Trace pedal edema. No calf tenderness on palpation. 2+ pulses in all 4 extremities.), no clubbing, no cyanosis and edema (Trace pedal edema.) Laterality: bilaterally Psych Mood: congruent mood Affect: normal affect Judgment: judgment good Procedures Hemaprompt Stool Procedural Steps Taken: specimen placed in appropriate test area and developer placed on specimen and control areas Hemaprompt Stool Result: positive Course Reevaluation(s) Reevaluation #1: The patient on reexamination was reportedly feeling improved. Consultations Consultation #1: The patient's case including history, pertinent physical examination findings, and laboratory studies were discussed with Dr. Antonio. It was agreed that the patient would be admitted to the Hospitalist service. Initial Documented Vital Signs Temperature 102.3 F H 01/04/18 20:30 Pulse Rate 119 H 01/04/18 20:30 Respiratory Rate 24 01/04/18 20:30 Blood Pressure 148/80 H 01/04/18 20:30 Pulse Oximetry 97 01/04/18 20:30 Last Documented Vital Signs Temperature 98.3 F 01/06/18 01:00 Pulse Rate 102 H 01/06/18 01:00 Respiratory Rate 20 01/06/18 01:00 Blood Pressure 124/60 01/06/18 01:00 Pulse Oximetry 98 01/06/18 01:00 Medical Decision Making MDM Narrative Medical decision making narrative: During the course of the patient's emergency department visit, the patient's history, examination, and differential diagnosis were reviewed with the patient. The patient was placed on a conveyor monitor with oximetry and frequent blood pressure monitoring. The patient had IV access obtained and blood work sent for analysis. Diagnostic evaluation was started regarding the patient's sharp upper back pain, shortness of breath, chest pressure, and tachycardia. The patient's electronic medical was reviewed. The patient did undergo a CTA during her hospitalization on December 09 that revealed no evidence of pulmonary embolism, however small bilateral pleural effusions, mild groundglass opacities in both lungs which could indicate underlying interstitial lung disease, mild cardiomegaly. The patient underwent a 2D echo that showed a 55% ejection fraction with ventricular hypertrophy. The patient underwent a stress test that showed no acute signs of ischemia. The patient had a rectal examination done by me with Hemoccult positive stools. Diagnostic studies revealed an initial hemoglobin of 9.3, white blood cell count of 9, platelets 401, neutrophil percent 81.6, PT 10.5, PTT 28, chemistry reveals a troponin I that is less than 0.02, sodium 135, GFR of 88, lipase 64. Urinalysis reveals many mucus, hazy urine, rare bacteria, otherwise unremarkable. CTA to evaluate for possible underlying pulmonary embolism revealed no acute abnormality, no evidence of PE. The patient will be admitted to the hospital for continued evaluation and treatment of a GI bleed. The patient's results were discussed with the patient, including the plan of care. I explained that further testing and/ or monitoring is indicated based on the patient's history, examination, and/ or laboratory findings. Therefore, I recommended admission for additional evaluation. The patient expressed understanding and was agreeable with this plan. The patient was admitted to the hospital in stable condition and sent to a bed under the care of the [facility] service. Medical Screen Exam Complete: Yes Emergency Medical Condition: Yes Differential Diagnosis Differential Diagnosis: Symptomatic anemia, versus pulmonary embolism due to recent hospitalization and decreased activity, versus pneumonia Medical Records Medical records reviewed: Yes I reviewed the patient's medical records. Lab Data Lab results reviewed: Yes I reviewed the patient's lab results. Result diagrams: 01/05/18 15:37 01/04/18 21:20 Lab Results 01/04/18 01/04/18 01/04/18 Range/Units 21:20 21:20 21:20 WBC (4.0-11.0) th/mm3 RBC (4.00-5.30) mil/mm3 Hgb (11.6-15.3) gm/dL Hct (35.0-46.0) % MCV (80.0-100.0) fL MCH (27.0-34.0) pg MCHC (32.0-36.0) % RDW (11.6-17.2) % Plt Count (150-450) th/mm3 MPV (7.0-11.0) fL Prelim Diff (Auto) Neut % (Auto) (16.0-70.0) % Lymph % (Auto) (9.0-44.0) % [place] % (Auto) (0.0-8.0) % Eos % (Auto) (0.0-4.0) % Baso % (Auto) (0.0-2.0) % Neut # (Auto) (1.8-7.7) th/mm3 Lymph # (Auto) (1.0-4.8) th/mm3 [place] # (Auto) (0.0-0.9) th/mm3 Eos # (Auto) (0.0-0.4) th/mm3 Baso # (Auto) (0.0-0.2) th/mm3 WBC Differential Diff Scan Differential Comment PT (9.8-11.6) sec INR Ratio APTT (24.3-30.1) sec Sodium (136-145) meq/L Potassium (3.5-5.1) meq/L Chloride (98-107) meq/L Carbon Dioxide (21.0-32.0) meq/L Anion Gap (5-15) meq/L BUN (7-18) mg/dL Creatinine (0.50-1.00) mg/dL Estimated GFR (>89) mL/min Random Glucose (74-106) mg/dL Calcium (8.5-10.1) mg/dL Magnesium (1.5-2.5) mg/dL Iron (50-170) mcg/dL TIBC (250-450) mcg/dL Iron & TIBC % Saturation (20-50) % Total Bilirubin (0.2-1.0) mg/dL AST (15-37) U/L ALT (10-53) U/L Alkaline Phosphatase (45-117) U/L Total Creatine Kinase (26-192) U/L Troponin I (0.02-0.05) ng/mL B-Natriuretic Peptide 16 (0-100) pg/mL Total Protein (6.4-8.2) g/dL Albumin (3.4-5.0) g/dL Lipase Cancelled Urine Color (Yellw/Straw) Urine Clarity (Clear) Urine pH (5.0-8.5) Ur Specific [place] (1.002-1.035) Urine Protein (Neg-Trace) mg/dL Urine Glucose (UA) (Negative) mg/dL Urine Ketones (Negative) mg/dL Urine Occult Blood (Negative) Urine Nitrate (Negative) Urine Bilirubin (Negative) Urine Urobilinogen (Less than 2) mg/dL Ur Leukocyte Esterase (Negative) Urine RBC (0-3) /hpf Urine WBC (0-5) /hpf Ur Squamous Epith Cells (0-5) /hpf Urine Bacteria (None) /hpf Hyaline Casts (0-3) /lpf Granular Casts (None) /lpf Urine Mucus (Occasional) /lpf Micro UA Comment Urine Culture Comments Blood Type O Positive Antibody Screen Negative 01/04/18 01/04/18 01/04/18 Range/Units 21:20 21:20 21:20 WBC 9.0 (4.0-11.0) th/mm3 RBC 4.52 (4.00-5.30) mil/mm3 Hgb 9.3 L (11.6-15.3) gm/dL Hct 31.0 L (35.0-46.0) % MCV 68.6 L (80.0-100.0) fL MCH 20.6 L (27.0-34.0) pg MCHC 30.0 L (32.0-36.0) % RDW 26.2 H (11.6-17.2) % Plt Count 401 (150-450) th/mm3 MPV 9.0 (7.0-11.0) fL Prelim Diff (Auto) Slide review pending Neut % (Auto) 81.6 H (16.0-70.0) % Lymph % (Auto) 11.3 (9.0-44.0) % [place] % (Auto) 5.3 (0.0-8.0) % Eos % (Auto) 1.2 (0.0-4.0) % Baso % (Auto) 0.6 (0.0-2.0) % Neut # (Auto) 7.3 (1.8-7.7) th/mm3 Lymph # (Auto) 1.0 (1.0-4.8) th/mm3 [place] # (Auto) 0.5 (0.0-0.9) th/mm3 Eos # (Auto) 0.1 (0.0-0.4) th/mm3 Baso # (Auto) 0.1 (0.0-0.2) th/mm3 WBC Differential . Diff Scan Auto diff confirmed Differential Comment . PT 10.5 (9.8-11.6) sec INR 1.0 Ratio APTT 28.0 (24.3-30.1) sec Sodium 135 L (136-145) meq/L Potassium 4.0 (3.5-5.1) meq/L Chloride 99 (98-107) meq/L Carbon Dioxide 28.7 (21.0-32.0) meq/L Anion Gap 7 (5-15) meq/L BUN 11 (7-18) mg/dL Creatinine 0.69 (0.50-1.00) mg/dL Estimated GFR 88 L (>89) mL/min Random Glucose 111 H (74-106) mg/dL Calcium 8.9 (8.5-10.1) mg/dL Magnesium 2.0 (1.5-2.5) mg/dL Iron (50-170) mcg/dL TIBC (250-450) mcg/dL Iron & TIBC % Saturation (20-50) % Total Bilirubin 0.5 (0.2-1.0) mg/dL AST 20 (15-37) U/L ALT 25 (10-53) U/L Alkaline Phosphatase 84 (45-117) U/L Total Creatine Kinase 32 (26-192) U/L Troponin I Less than 0.02 L (0.02-0.05) ng/mL B-Natriuretic Peptide (0-100) pg/mL Total Protein 8.0 (6.4-8.2) g/dL Albumin 3.0 L (3.4-5.0) g/dL Lipase 64 L Urine Color (Yellw/Straw) Urine Clarity (Clear) Urine pH (5.0-8.5) Ur Specific [place] (1.002-1.035) Urine Protein (Neg-Trace) mg/dL Urine Glucose (UA) (Negative) mg/dL Urine Ketones (Negative) mg/dL Urine Occult Blood (Negative) Urine Nitrate (Negative) Urine Bilirubin (Negative) Urine Urobilinogen (Less than 2) mg/dL Ur Leukocyte Esterase (Negative) Urine RBC (0-3) /hpf Urine WBC (0-5) /hpf Ur Squamous Epith Cells (0-5) /hpf Urine Bacteria (None) /hpf Hyaline Casts (0-3) /lpf Granular Casts (None) /lpf Urine Mucus (Occasional) /lpf Micro UA Comment Urine Culture Comments Blood Type Antibody Screen 01/04/18 01/05/18 01/05/18 Range/Units 23:05 03:30 03:30 WBC (4.0-11.0) th/mm3 RBC (4.00-5.30) mil/mm3 Hgb 8.3 L (11.6-15.3) gm/dL Hct 27.3 L (35.0-46.0) % MCV (80.0-100.0) fL MCH (27.0-34.0) pg MCHC (32.0-36.0) % RDW (11.6-17.2) % Plt Count (150-450) th/mm3 MPV (7.0-11.0) fL Prelim Diff (Auto) Neut % (Auto) (16.0-70.0) % Lymph % (Auto) (9.0-44.0) % [place] % (Auto) (0.0-8.0) % Eos % (Auto) (0.0-4.0) % Baso % (Auto) (0.0-2.0) % Neut # (Auto) (1.8-7.7) th/mm3 Lymph # (Auto) (1.0-4.8) th/mm3 [place] # (Auto) (0.0-0.9) th/mm3 Eos # (Auto) (0.0-0.4) th/mm3 Baso # (Auto) (0.0-0.2) th/mm3 WBC Differential Diff Scan Differential Comment PT (9.8-11.6) sec INR Ratio APTT (24.3-30.1) sec Sodium (136-145) meq/L Potassium (3.5-5.1) meq/L Chloride (98-107) meq/L Carbon Dioxide (21.0-32.0) meq/L Anion Gap (5-15) meq/L BUN (7-18) mg/dL Creatinine (0.50-1.00) mg/dL Estimated GFR (>89) mL/min Random Glucose (74-106) mg/dL Calcium (8.5-10.1) mg/dL Magnesium (1.5-2.5) mg/dL Iron (50-170) mcg/dL TIBC (250-450) mcg/dL Iron & TIBC % Saturation (20-50) % Total Bilirubin (0.2-1.0) mg/dL AST (15-37) U/L ALT (10-53) U/L Alkaline Phosphatase (45-117) U/L Total Creatine Kinase 31 (26-192) U/L Troponin I Less than 0.02 L (0.02-0.05) ng/mL B-Natriuretic Peptide (0-100) pg/mL Total Protein (6.4-8.2) g/dL Albumin (3.4-5.0) g/dL Lipase Urine Color Yellow (Yellw/Straw) Urine Clarity Hazy H (Clear) Urine pH 5.0 (5.0-8.5) Ur Specific [place] 1.027 (1.002-1.035) Urine Protein Negative (Neg-Trace) mg/dL Urine Glucose (UA) Negative (Negative) mg/dL Urine Ketones Negative (Negative) mg/dL Urine Occult Blood Negative (Negative) Urine Nitrate Negative (Negative) Urine Bilirubin Negative (Negative) Urine Urobilinogen Less than 2 (Less than 2) mg/dL Ur Leukocyte Esterase Negative (Negative) Urine RBC 1 (0-3) /hpf Urine WBC 2 (0-5) /hpf Ur Squamous Epith Cells 1 (0-5) /hpf Urine Bacteria Rare H (None) /hpf Hyaline Casts 5 (0-3) /lpf Granular Casts 1 (None) /lpf Urine Mucus Many H (Occasional) /lpf Micro UA Comment Cath-culture ind Urine Culture Comments Cath-cult indicated Blood Type Antibody Screen 01/05/18 01/05/18 01/05/18 Range/Units 11:30 11:30 15:37 WBC (4.0-11.0) th/mm3 RBC (4.00-5.30) mil/mm3 Hgb 8.6 L (11.6-15.3) gm/dL Hct 28.8 L (35.0-46.0) % MCV (80.0-100.0) fL MCH (27.0-34.0) pg MCHC (32.0-36.0) % RDW (11.6-17.2) % Plt Count (150-450) th/mm3 MPV (7.0-11.0) fL Prelim Diff (Auto) Neut % (Auto) (16.0-70.0) % Lymph % (Auto) (9.0-44.0) % [place] % (Auto) (0.0-8.0) % Eos % (Auto) (0.0-4.0) % Baso % (Auto) (0.0-2.0) % Neut # (Auto) (1.8-7.7) th/mm3 Lymph # (Auto) (1.0-4.8) th/mm3 [place] # (Auto) (0.0-0.9) th/mm3 Eos # (Auto) (0.0-0.4) th/mm3 Baso # (Auto) (0.0-0.2) th/mm3 WBC Differential Diff Scan Differential Comment PT (9.8-11.6) sec INR Ratio APTT (24.3-30.1) sec Sodium (136-145) meq/L Potassium (3.5-5.1) meq/L Chloride (98-107) meq/L Carbon Dioxide (21.0-32.0) meq/L Anion Gap (5-15) meq/L BUN (7-18) mg/dL Creatinine (0.50-1.00) mg/dL Estimated GFR (>89) mL/min Random Glucose (74-106) mg/dL Calcium (8.5-10.1) mg/dL Magnesium (1.5-2.5) mg/dL Iron 32 L Cancelled (50-170) mcg/dL TIBC 385 Cancelled (250-450) mcg/dL Iron & TIBC Cancelled % Saturation 8.3 L Cancelled (20-50) % Total Bilirubin (0.2-1.0) mg/dL AST (15-37) U/L ALT (10-53) U/L Alkaline Phosphatase (45-117) U/L Total Creatine Kinase 39 (26-192) U/L Troponin I Less than 0.02 L (0.02-0.05) ng/mL B-Natriuretic Peptide (0-100) pg/mL Total Protein (6.4-8.2) g/dL Albumin (3.4-5.0) g/dL Lipase Urine Color (Yellw/Straw) Urine Clarity (Clear) Urine pH (5.0-8.5) Ur Specific [place] (1.002-1.035) Urine Protein (Neg-Trace) mg/dL Urine Glucose (UA) (Negative) mg/dL Urine Ketones (Negative) mg/dL Urine Occult Blood (Negative) Urine Nitrate (Negative) Urine Bilirubin (Negative) Urine Urobilinogen (Less than 2) mg/dL Ur Leukocyte Esterase (Negative) Urine RBC (0-3) /hpf Urine WBC (0-5) /hpf Ur Squamous Epith Cells (0-5) /hpf Urine Bacteria (None) /hpf Hyaline Casts (0-3) /lpf Granular Casts (None) /lpf Urine Mucus (Occasional) /lpf Micro UA Comment Urine Culture Comments Blood Type Antibody Screen Imaging Data Radiologist's impression: Chest CTA 01/04/18 21:06 CONCLUSION: 1. This study is negative for pulmonary embolism. Chest X-Ray 01/04/18 21:09 CONCLUSION: The lungs are clear. Cardiomegaly. Abdomen/Pelvis CT 01/05/18 00:00 CONCLUSION: 1. No acute findings in the abdomen and pelvis. 2. Hepatosplenomegaly. 3. Limited quality examination due to patient's body habitus. Pelvis MRI 01/05/18 00:00 CONCLUSION: 1. Endometrium is abnormally thickened measuring up to 2.1 cm. As described above, there is a variant anatomy of the uterus likely representing an arcuate configuration with the right uterine horn having a somewhat thicker appearance than the left. However, no focal endometrial abnormality is identified. 2. No other significant abnormality is identified in the pelvis. ECG Data Attestation: I personally reviewed and interpreted this ECG as follows: Interpretation: The patient had a EKG done on arrival. The patient's EKG reveals sinus tachycardia rate of 111, QRS duration 93 ms, QTC [address] segment elevation, T waves are inverted in V1, V2. Discharge Plan Discharge Disposition Patient Disposition: 30 Still Patient Discharge Details Diagnosis: Acute GI bleeding, Chest pain Physicians Team ED Provider: Lore Ring Primary Care Provider: Primary Care Marsha Agustin Attending Provider: Jesus Molina Other Providers: Pedro Collins ; Michael,Bill Status ED Status: Left Department Discharge Information Discharge Date/Time: 01/05/18 03:13
[2018-01-04 21:45] LABS: Baso # (Auto) 0.1 th/mm3 (0.0-0.2); Baso % (Auto) 0.6 % (0.0-2.0); Eos # (Auto) 0.1 th/mm3 (0.0-0.4); Eos % (Auto) 1.2 % (0.0-4.0); Hemoglobin 9.3 gm/dL (11.6-15.3); Lymph % (Auto) 11.3 % (9.0-44.0); Mean Corpuscular Hemoglobin 20.6 pg (27.0-34.0); Mean Corpuscular Volume 68.6 fL (80.0-100.0); Mono # (Auto) 0.5 th/mm3 (0.0-0.9); Mono % (Auto) 5.3 % (0.0-8.0); Neut # (Auto) 7.3 th/mm3 (1.8-7.7); Neut % (Auto) 81.6 % (16.0-70.0); Platelet Count 401 th/mm3 (150-450); Red Blood Count 4.52 mil/mm3 (4.00-5.30); Red Cell Distribution Width 26.2 % (11.6-17.2)
[2018-01-04 21:58] LABS: Prothrombin Time 10.5 sec (9.8-11.6)
--- NOTE | 2018-01-04 22:00 | XR ---
EXAM DATE: 01/04/2018 9:40 PM EDT AGE/SEX: 53 years / Female INDICATIONS: Shortness of breath and chest pain. CLINICAL DATA: This is the patient's initial encounter. Patient reports that signs and symptoms have been present for 1 day and indicates a pain score of 4/10. MEDICAL/SURGICAL HISTORY: None. None. COMPARISON: [facility], CHEST 1V SINGLE AP, 12/07/2017. [facility], CHEST 1V SINGLE AP, 11/30/2017. [facility], CHEST 1V SINGLE AP, 11/26/2017. . FINDINGS: A single AP view of the chest demonstrates the lungs to be symmetrically aerated without evidence of mass, infiltrate or effusion. Stable cardiomegaly. Osseous structures are intact. CONCLUSION: The lungs are clear. Cardiomegaly. Electronically signed by: Dallas Rico MD 01/04/2018 9:59 PM EDT
[2018-01-04 22:09] LABS: Alanine Aminotransferase 25 U/L (10-53); Anion Gap 7 meq/L (5-15); Aspartate Aminotransferase 20 U/L (15-37); Blood Urea Nitrogen 11 mg/dL (7-18); Calcium 8.9 mg/dL (8.5-10.1); Carbon Dioxide 28.7 meq/L (21.0-32.0); Chloride 99 meq/L (98-107); Glomerular Filtration Rate 88 mL/min (>89); Glucose,Random 111 mg/dL (74-106); Lipase 64 U/L (73-393); Sodium 135 meq/L (136-145)
[2018-01-04 22:13] LABS: Alkaline Phosphatase 84 U/L (45-117)
[2018-01-04 22:15] LABS: Creatine Kinase 32 U/L (26-192)
--- NOTE | 2018-01-04 23:19 | CT ---
EXAM DATE: 01/04/2018 11:10 PM EDT AGE/SEX: 53 years / Female INDICATIONS: Chest pain. CLINICAL DATA: This is the patient's initial encounter. Patient reports that signs and symptoms have been present for 1 day and indicates a pain score of 6/10. MEDICAL/SURGICAL HISTORY: Cardiovascular disease. Peripheral artery disease. Pulmonary hypertensio n None. RADIATION DOSE: 10.70 CTDI (mGy) COMPARISON: [facility], CTA PULMONARY W CONTRAST W 3D, 12/09/2017. . TECHNIQUE: Volumetric scanning was performed using a multi-row detector CT scanner during bolus infu daniele of 75 ml Omnipaque 350 (iohexol) nonionic water-soluble contrast as a single exam dose. The rimma a was post processed with a variety of visualization algorithms including full volume maximum intensi ty projection and sliding thin slab reformation. Using automated exposure control and adjustment of t he mA and/or kV according to patient size, radiation dose was kept as low as reasonably achievable to obtain optimal diagnostic quality images. DICOM format image data is available electronically for r eview and comparison. FINDINGS: Pulmonary Arteries: No filling defects are seen in the pulmonary arteries out to the subsegmental ve ssels. The left and right pulmonary arteries are normal in diameter. Lung: No infiltrates seen. Effusion: None. Mediastinum: No evidence of mediastinal or hilar adenopathy. Other: The axilla is unremarkable. CONCLUSION: 1. This study is negative for pulmonary embolism. Electronically signed by: Dallas Barfield MD 01/04/2018 11:17 PM EDT
[2018-01-04 23:20] LABS: Bacteria,Urine Rare /hpf; Bilirubin,Urine Negative (Negative); Clarity,Urine Hazy (Clear); Color,Urine Yellow (Yellw/Straw); Glucose,Urine (UA) Negative (Negative); Hyaline Casts,Urine 5 /lpf (0-3); Leukocyte Esterase,Urine Negative (Negative); Mucus,Urine Many /lpf (Occasional); Nitrite,Urine Negative (Negative); Specific Gravity,Urine 1.027 (1.002-1.035); Squamous Epithelial Cell,Urine 1 /hpf (0-5)
[2018-01-05] MEDS ORDERED: Acetaminophen 325 MG Tablet PO ONE (00:10)
[2018-01-05] MEDS ORDERED: Acetaminophen 325 MG Tablet PO PRN (00:41)
--- NOTE | 2018-01-05 00:43 | P.HP ---
History of Present Illness Service: [facility] Primary Care Physician: No Primary Care Physician History of Present Illness: 53-year-old female with a past medical history significant for CAD and PAD presents to the emergency department for the evaluation of fever, generalized malaise and abdominal pain. The patient was recently hospitalized for severe anemia requiring transfusion and had colonoscopy done which was incomplete. She had several polyps removed and was diagnosed with hemorrhoids. The patient reports that she was called by Dr. Clements's office as 1 of the polyps was abnormal and she was supposed to go for follow-up. She has been unable to do so she lost her job secondary to her hospital stay and does not have any insurance. She reports that since yesterday she has had 3 bowel movements per day and has had nausea/vomiting. She denies any black, tarry stools or hematemesis. She was Hemoccult positive in the emergency department. H&H stable. Denies shortness of breath. Endorses associated chest pain. Reports subjective fevers/chills. Denies lateralizing signs/symptoms. Review of Systems All other systems reviewed negative except as stated in HPI PMFSH - History History Provided By: Patient - Medical History Medical History: Medical History (Last Reviewed 01/04/18 @ 21:42 by Lore Ring MD) Anemia CAD (coronary artery disease) PAD (peripheral artery disease) - Surgical History Surgical History: Surgical History (Last Reviewed 01/04/18 @ 21:42 by Lore Ring MD) No history of previous surgery - Family History Family History: Family History (Last Updated 01/05/18 @ 00:34 by Margaret Antonio MD) Other CAD (coronary artery disease) Colon cancer Dementia Diabetes mellitus Throat cancer - Tobacco History Second Hand Smoke Exposure: No Tobacco Use In Past 30 Days: No Smoking Status: Never smoker - Alcohol History How Often Do You Have a Drink Containing Alcohol: Never - Substance Use History Substance History: No History of Abuse - Travel History Recent Travel in the [place] Within the Last 8 Weeks: No Recent Travel Out of the Country Within the Last 8 Weeks: No - Immunization History Tetanus Immunization: <5 Years Hx Influenza Vaccine This Season: Yes Medications and Allergies Active Medications: Active Medications Ondansetron HCl (Zofran Inj) 4 mg IV.PUSH Q6H PRN PRN Reason: NAUSEA OR VOMITING Sodium Chloride (Ns Flush) 2 ml IV.FLUSH UNSCH PRN PRN Reason: FLUSH AFTER USING IV ACCESS Allergies Allergy/AdvReac Type Severity Reaction Status Date / Time No Known Allergies Allergy Verified 01/04/18 20:30 Home Medications Medication Instructions Recorded Confirmed Type aspirin 324 mg PO Q6HR 11/26/17 01/04/18 History ferrous sulfate 325 mg PO DAILY 01/04/18 01/04/18 History Exam Vital signs: Vital Signs 01/04/18 20:30 01/04/18 20:47 01/04/18 21:30 Temperature 102.3 F H Pulse Rate 119 H 113 H 109 H Respiratory Rate 24 20 18 Blood Pressure 148/80 H 156/72 H 126/61 Pulse Oximetry 97 98 93 L 01/04/18 22:04 Temperature Pulse Rate Respiratory Rate Blood Pressure Pulse Oximetry 96 Intake & Output 01/04/18 01/04/18 01/05/18 06:59 18:59 06:59 Weight 176.901 kg Narrative: Gen.: No acute distress Head: Normocephalic. Atraumatic. EENT: Pupils equal round and reactive to light. Nose without drainage. Airway intact. Throat without injection. Cardiovascular: Regular rate and rhythm. No murmurs, rubs or gallops. Respiratory: Lungs clear to auscultation bilaterally. No wheezes or rhonchi. Abdomen: Soft, nontender, nondistended. No peritoneal signs. Musculoskeletal: No gross deformities. No edema. Skin: No obvious rashes or erythema. Neuro: Sensory and motor grossly intact. Cranial nerves II through XII grossly intact. Results - Labs CBC & Chem 7: 01/04/18 21:20 01/04/18 21:20 Labs: Laboratory Results - last 24 hr 01/04/18 01/04/18 01/04/18 21:20 21:20 21:20 WBC RBC Hgb Hct MCV MCH MCHC RDW Plt Count MPV Prelim Diff (Auto) Neut % (Auto) Lymph % (Auto) [place] % (Auto) Eos % (Auto) Baso % (Auto) Neut # (Auto) Lymph # (Auto) [place] # (Auto) Eos # (Auto) Baso # (Auto) WBC Differential Diff Scan Differential Comment PT INR APTT Sodium Potassium Chloride Carbon Dioxide Anion Gap BUN Creatinine Estimated GFR Random Glucose Calcium Magnesium Total Bilirubin AST ALT Alkaline Phosphatase Total Creatine Kinase Troponin I B-Natriuretic Peptide 16 Total Protein Albumin Lipase Cancelled Urine Color Urine Clarity Urine pH Ur Specific [place] Urine Protein Urine Glucose (UA) Urine Ketones Urine Occult Blood Urine Nitrate Urine Bilirubin Urine Urobilinogen Ur Leukocyte Esterase Urine RBC Urine WBC Ur Squamous Epith Cells Urine Bacteria Hyaline Casts Granular Casts Urine Mucus Micro UA Comment Urine Culture Comments Blood Type O Positive Antibody Screen Negative 01/04/18 01/04/18 01/04/18 21:20 21:20 21:20 WBC 9.0 RBC 4.52 Hgb 9.3 L Hct 31.0 L MCV 68.6 L MCH 20.6 L MCHC 30.0 L RDW 26.2 H Plt Count 401 MPV 9.0 Prelim Diff (Auto) Slide review pending Neut % (Auto) 81.6 H Lymph % (Auto) 11.3 [place] % (Auto) 5.3 Eos % (Auto) 1.2 Baso % (Auto) 0.6 Neut # (Auto) 7.3 Lymph # (Auto) 1.0 [place] # (Auto) 0.5 Eos # (Auto) 0.1 Baso # (Auto) 0.1 WBC Differential . Diff Scan Auto diff confirmed Differential Comment . PT 10.5 INR 1.0 APTT 28.0 Sodium 135 L Potassium 4.0 Chloride 99 Carbon Dioxide 28.7 Anion Gap 7 BUN 11 Creatinine 0.69 Estimated GFR 88 L Random Glucose 111 H Calcium 8.9 Magnesium 2.0 Total Bilirubin 0.5 AST 20 ALT 25 Alkaline Phosphatase 84 Total Creatine Kinase 32 Troponin I Less than 0.02 L B-Natriuretic Peptide Total Protein 8.0 Albumin 3.0 L Lipase 64 L Urine Color Urine Clarity Urine pH Ur Specific [place] Urine Protein Urine Glucose (UA) Urine Ketones Urine Occult Blood Urine Nitrate Urine Bilirubin Urine Urobilinogen Ur Leukocyte Esterase Urine RBC Urine WBC Ur Squamous Epith Cells Urine Bacteria Hyaline Casts Granular Casts Urine Mucus Micro UA Comment Urine Culture Comments Blood Type Antibody Screen 01/04/18 23:05 WBC RBC Hgb Hct MCV MCH MCHC RDW Plt Count MPV Prelim Diff (Auto) Neut % (Auto) Lymph % (Auto) [place] % (Auto) Eos % (Auto) Baso % (Auto) Neut # (Auto) Lymph # (Auto) [place] # (Auto) Eos # (Auto) Baso # (Auto) WBC Differential Diff Scan Differential Comment PT INR APTT Sodium Potassium Chloride Carbon Dioxide Anion Gap BUN Creatinine Estimated GFR Random Glucose Calcium Magnesium Total Bilirubin AST ALT Alkaline Phosphatase Total Creatine Kinase Troponin I B-Natriuretic Peptide Total Protein Albumin Lipase Urine Color Yellow Urine Clarity Hazy H Urine pH 5.0 Ur Specific [place] 1.027 Urine Protein Negative Urine Glucose (UA) Negative Urine Ketones Negative Urine Occult Blood Negative Urine Nitrate Negative Urine Bilirubin Negative Urine Urobilinogen Less than 2 Ur Leukocyte Esterase Negative Urine RBC 1 Urine WBC 2 Ur Squamous Epith Cells 1 Urine Bacteria Rare H Hyaline Casts 5 Granular Casts 1 Urine Mucus Many H Micro UA Comment Cath-culture ind Urine Culture Comments Cath-cult indicated Blood Type Antibody Screen - Imaging Impressions Chest CTA 01/04/18 21:06 CONCLUSION: 1. This study is negative for pulmonary embolism. Chest X-Ray 01/04/18 21:09 CONCLUSION: The lungs are clear. Cardiomegaly. Caprini VTE Risk Assessment Caprini VTE Risk Assessment: No/Low Risk (score <= 1) Caprini Risk Assessment Model: Point Value = 1 Point Value = 2 Point Value = 3 Point Value = 5 Age 41-60 Minor surgery BMI > 25 kg/m2 Swollen legs Varicose veins or History of unexplained or recurrent spontaneous Oral contraceptives or hormone replacement Sepsis (< 1 month) Serious lung disease, including pneumonia (< 1 month) Abnormal pulmonary function Acute myocardial infarction Congestive heart failure (< 1 month) History of inflammatory bowel disease Medical patient at bed rest Age 61-74 Arthroscopic surgery Major open surgery (> 45 min) Laparoscopic surgery (> 45 min) Malignancy Confined to bed (> 72 hours) Immobilizing plaster cast Central venous access Age >= 75 History of VTE Family history of VTE Factor V Leiden Prothrombin [id number] Lupus anticoagulant Anticardiolipin antibodies Elevated serum homocysteine Heparin-induced thrombocytopenia Other congenital or acquired thrombophilia Stroke (< 1 month) Elective arthroplasty Hip, pelvis, or leg fracture Acute spinal cord injury (< 1 month) Prophylaxis Regimen: Total Risk Factor Score Risk Level Prophylaxis Regimen 0-1 Low Early ambulation 2 Moderate Order ONE of the following: *Sequential Compression Device (SCD) *Heparin 5000 units SQ BID 3-4 Higher Order ONE of the following medications: *Heparin 5000 units SQ TID *Enoxaparin/Lovenox 40 mg SQ daily (WT < 150 kg, CrCl > 30 mL/min) *Enoxaparin/Lovenox 30 mg SQ daily (WT < 150 kg, CrCl > 10-29 mL/min) *Enoxaparin/Lovenox 30 mg SQ BID (WT < 150 kg, CrCl > 30 mL/min) AND/OR *Sequential Compression Device (SCD) 5 or more Highest Order ONE of the following medications: *Heparin 5000 units SQ TID (Preferred with Epidurals) *Enoxaparin/Lovenox 40 mg SQ daily (WT < 150 kg, CrCl > 30 mL/min) *Enoxaparin/Lovenox 30 mg SQ daily (WT < 150 kg, CrCl > 10-29 mL/min) *Enoxaparin/Lovenox 30 mg SQ BID (WT < 150 kg, CrCl > 30 mL/min) AND *Sequential Compression Device (SCD) Assessment and Plan - Plan Assessment/plan: 1. Lower GI bleed/abnormal polyp/abdominal pain H&H stable Hemoccult positive Gastroenterology consulted, appreciate recommendations IV Protonix Monitor CBC Transfuse as needed 2. Chest pain Initial troponin negative EKG without signs of ischemia, personally reviewed ACS rule out pending; serial troponins/EKGs 3. Fever/tachycardia Patient febrile on arrival to the emergency department Chest x-ray without signs of acute cardiopulmonary disease UA not suggestive of UTI, urine culture pending No leukocytosis CT pulmonary angiogram negative Monitor Blood cultures pending 4. CAD Holding home aspirin secondary to GI bleed 5. Anemia Continue home iron FEN N.p.o. Electrolytes: Monitor and replete prn
[2018-01-05] MEDS: Pantoprazole Inj 40 MG Vial IV.PUSH SCH ×2 (00:46→12:28)
[2018-01-05 06:06] LABS: Hematocrit 27.3 % (35.0-46.0); Hemoglobin 8.3 gm/dL (11.6-15.3)
[2018-01-05 06:33] LABS: Creatine Kinase 31 U/L (26-192)
[2018-01-05] MEDS: Furosemide 20 MG Tablet PO SCH (08:34)
[2018-01-05] MEDS: Ferrous Sulfate 325 MG Tablet PO SCH (08:34)
[2018-01-05 12:34] LABS: % Iron Saturation 8.3 % (20-50); Iron 32 mcg/dL (50-170); Total Iron Binding Capacity 385 mcg/dL (250-450)
[2018-01-05 12:38] LABS: Creatine Kinase 39 U/L (26-192)
[2018-01-05] MEDS ORDERED: Gadobutrol PF 7.5 MMOL/7.5 ML Vial (for RAD) IV.SIG ONE (14:58)
--- NOTE | 2018-01-05 15:12 | MR ---
EXAM DATE: 01/05/2018 2:39 PM EDT AGE/SEX: 53 years / Female INDICATIONS: . Vaginal bleeding. CLINICAL DATA: This is the patient's subsequent encounter. Patient reports that signs and symptoms h ave been present for 2 days and indicates a pain score of 0/10. MEDICAL/SURGICAL HISTORY: . pulmonary hypertension, anemia None. COMPARISON: No prior exams available for comparison. TECHNIQUE: Multiplanar, multisequence MRI examination of the pelvis was performed with 17 ml Gadav ist (gadobutrol) contrast and without contrast as a single exam dose. FINDINGS: Bowel/Mesentery: Visualized small and large bowel demonstrate no acute abnormality. Bladder: No wall thickening or mass. Bladder is only partially distended. Urethra has a normal appear ance. Retroperitoneum: No lymphadenopathy or vascular abnormality is identified. Reproductive Organs: Uterus measures approximately 10.8 x 5.9 x 9.3 cm. It demonstrates normal fundal contour but there are 2 uterine horns present. Nabothian cysts are present. Endometrium is thickened measuring 2.1 cm in thickness. It appears thickest in the right uterine horn. There is homogeneous T 2 hyperintense signal without a focal enhancing abnormality. The vagina has a normal appearance. Both ovaries have a normal appearance and size with the left ovary measuring 2.6 x 1.3 cm and the right o vary measuring approximately 2.1 x 1.6 cm. No concerning cystic lesion is present. Inguinal: No lymphadenopathy or hernia. Bony Structures: Bones demonstrate no acute finding. Free Fluid: None seen. 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 CONCLUSION: 1. Endometrium is abnormally thickened measuring up to 2.1 cm. As described above, there is a varian t anatomy of the uterus likely representing an arcuate configuration with the right uterine horn havi ng a somewhat thicker appearance than the left. However, no focal endometrial abnormality is identifi ed. 2. No other significant abnormality is identified in the pelvis. Electronically signed by: Yifan Doherty MD 01/05/2018 3:11 PM EDT
[2018-01-05 15:58] LABS: Hematocrit 28.8 % (35.0-46.0); Hemoglobin 8.6 gm/dL (11.6-15.3)
[2018-01-05] MEDS ORDERED: Diatrizoate Meglum/Diatrizoate Sod Liq 9 ML UDC PO ONE (16:35)
--- NOTE | 2018-01-05 16:39 | P.PN ---
Subjective Interval history: Patient is seen sitting up in chair. She is complaining about not being able to eat. Patient tells me that she had gone almost 6 months without having a period and then experienced over 5 weeks of nonstop bleeding. She was supposed to follow-up with [facility] this week but instead came in as she was feeling very weak and tired. She continues to have a lot of left lower quadrant abdominal pain. Tells me she has not had normal bowel movements for several years they are either always constipation or diarrhea. She reiterates that both of her parents of colon cancer and she is very concerned. Denies any chest pain or shortness of breath. No nausea or vomiting. She has been urinating normally. Physical Exam Vital signs: Vital Signs 01/04/18 20:30 01/04/18 20:47 01/04/18 21:30 Temperature 102.3 F H Pulse Rate 119 H 113 H 109 H Respiratory Rate 24 20 18 Blood Pressure 148/80 H 156/72 H 126/61 Pulse Oximetry 97 98 93 L 01/04/18 22:04 01/05/18 00:38 01/05/18 03:03 Temperature 98.1 F Pulse Rate 92 H Respiratory Rate 18 22 Blood Pressure 127/62 Pulse Oximetry 96 93 L 01/05/18 06:45 01/05/18 08:00 01/05/18 08:25 Temperature 98.1 F Pulse Rate 92 H 86 Respiratory Rate 20 Blood Pressure 119/58 L Pulse Oximetry 96 93 L 01/05/18 09:47 01/05/18 12:00 Temperature 97.0 F L Pulse Rate 90 94 H Respiratory Rate 18 Blood Pressure 131/69 Pulse Oximetry 95 Intake & Output 01/04/18 01/05/18 01/05/18 18:59 06:59 18:59 Intake Total 500 / 500 Balance 500 / 500 Weight 176.901 kg 176.901 kg Intake: IV 500 / 500 NS Inj 500 ML @ Wide Open IV. 500 / 500 SIG ONCE ONE Rx#:[id number] Other: # Voids 1 Date of Last Bowel Movement 01/04/18 Weight On Admission 176.901 kg Narrative: GENERAL: Well-nourished, well-developed adult female in no obvious distress. SKIN: Warm and dry. HEAD: Atraumatic. Normocephalic. CARDIOVASCULAR: Regular rate and rhythm. RESPIRATORY: No accessory muscle use. Clear to auscultation. Breath sounds equal bilaterally. GASTROINTESTINAL: Abdomen soft, diffusely tender with no guarding, non- distended. Positive bowel sounds. Body habitus limits exam. MUSCULOSKELETAL: Bilateral lower extremities generalized edema. No obvious deformities. NEUROLOGICAL: Awake and alert. No obvious cranial nerve deficits. Motor grossly within normal limits. Normal speech. PSYCHIATRIC: Anxious - Urinary Catheter Management Straight Cath placed during this visit: yes Reason for continuing: Not indwelling catheter Insertion date: 01/04/18 Insertion time: 23:02 Results - Labs CBC & Chem 7: 01/05/18 15:37 01/04/18 21:20 Laboratory Results - last 24 hr 01/04/18 01/04/18 01/04/18 21:20 21:20 21:20 WBC RBC Hgb Hct MCV MCH MCHC RDW Plt Count MPV Prelim Diff (Auto) Neut % (Auto) Lymph % (Auto) [place] % (Auto) Eos % (Auto) Baso % (Auto) Neut # (Auto) Lymph # (Auto) [place] # (Auto) Eos # (Auto) Baso # (Auto) WBC Differential Diff Scan Differential Comment PT INR APTT Sodium Potassium Chloride Carbon Dioxide Anion Gap BUN Creatinine Estimated GFR Random Glucose Calcium Magnesium Iron TIBC Iron & TIBC % Saturation Total Bilirubin AST ALT Alkaline Phosphatase Total Creatine Kinase Troponin I B-Natriuretic Peptide 16 Total Protein Albumin Lipase Cancelled Urine Color Urine Clarity Urine pH Ur Specific [place] Urine Protein Urine Glucose (UA) Urine Ketones Urine Occult Blood Urine Nitrate Urine Bilirubin Urine Urobilinogen Ur Leukocyte Esterase Urine RBC Urine WBC Ur Squamous Epith Cells Urine Bacteria Hyaline Casts Granular Casts Urine Mucus Micro UA Comment Urine Culture Comments Blood Type O Positive Antibody Screen Negative 01/04/18 01/04/18 01/04/18 21:20 21:20 21:20 WBC 9.0 RBC 4.52 Hgb 9.3 L Hct 31.0 L MCV 68.6 L MCH 20.6 L MCHC 30.0 L RDW 26.2 H Plt Count 401 MPV 9.0 Prelim Diff (Auto) Slide review pending Neut % (Auto) 81.6 H Lymph % (Auto) 11.3 [place] % (Auto) 5.3 Eos % (Auto) 1.2 Baso % (Auto) 0.6 Neut # (Auto) 7.3 Lymph # (Auto) 1.0 [place] # (Auto) 0.5 Eos # (Auto) 0.1 Baso # (Auto) 0.1 WBC Differential . Diff Scan Auto diff confirmed Differential Comment . PT 10.5 INR 1.0 APTT 28.0 Sodium 135 L Potassium 4.0 Chloride 99 Carbon Dioxide 28.7 Anion Gap 7 BUN 11 Creatinine 0.69 Estimated GFR 88 L Random Glucose 111 H Calcium 8.9 Magnesium 2.0 Iron TIBC Iron & TIBC % Saturation Total Bilirubin 0.5 AST 20 ALT 25 Alkaline Phosphatase 84 Total Creatine Kinase 32 Troponin I Less than 0.02 L B-Natriuretic Peptide Total Protein 8.0 Albumin 3.0 L Lipase 64 L Urine Color Urine Clarity Urine pH Ur Specific [place] Urine Protein Urine Glucose (UA) Urine Ketones Urine Occult Blood Urine Nitrate Urine Bilirubin Urine Urobilinogen Ur Leukocyte Esterase Urine RBC Urine WBC Ur Squamous Epith Cells Urine Bacteria Hyaline Casts Granular Casts Urine Mucus Micro UA Comment Urine Culture Comments Blood Type Antibody Screen 01/04/18 01/05/18 01/05/18 23:05 03:30 03:30 WBC RBC Hgb 8.3 L Hct 27.3 L MCV MCH MCHC RDW Plt Count MPV Prelim Diff (Auto) Neut % (Auto) Lymph % (Auto) [place] % (Auto) Eos % (Auto) Baso % (Auto) Neut # (Auto) Lymph # (Auto) [place] # (Auto) Eos # (Auto) Baso # (Auto) WBC Differential Diff Scan Differential Comment PT INR APTT Sodium Potassium Chloride Carbon Dioxide Anion Gap BUN Creatinine Estimated GFR Random Glucose Calcium Magnesium Iron TIBC Iron & TIBC % Saturation Total Bilirubin AST ALT Alkaline Phosphatase Total Creatine Kinase 31 Troponin I Less than 0.02 L B-Natriuretic Peptide Total Protein Albumin Lipase Urine Color Yellow Urine Clarity Hazy H Urine pH 5.0 Ur Specific [place] 1.027 Urine Protein Negative Urine Glucose (UA) Negative Urine Ketones Negative Urine Occult Blood Negative Urine Nitrate Negative Urine Bilirubin Negative Urine Urobilinogen Less than 2 Ur Leukocyte Esterase Negative Urine RBC 1 Urine WBC 2 Ur Squamous Epith Cells 1 Urine Bacteria Rare H Hyaline Casts 5 Granular Casts 1 Urine Mucus Many H Micro UA Comment Cath-culture ind Urine Culture Comments Cath-cult indicated Blood Type Antibody Screen 01/05/18 01/05/18 01/05/18 11:30 11:30 15:37 WBC RBC Hgb 8.6 L Hct 28.8 L MCV MCH MCHC RDW Plt Count MPV Prelim Diff (Auto) Neut % (Auto) Lymph % (Auto) [place] % (Auto) Eos % (Auto) Baso % (Auto) Neut # (Auto) Lymph # (Auto) [place] # (Auto) Eos # (Auto) Baso # (Auto) WBC Differential Diff Scan Differential Comment PT INR APTT Sodium Potassium Chloride Carbon Dioxide Anion Gap BUN Creatinine Estimated GFR Random Glucose Calcium Magnesium Iron 32 L Cancelled TIBC 385 Cancelled Iron & TIBC Cancelled % Saturation 8.3 L Cancelled Total Bilirubin AST ALT Alkaline Phosphatase Total Creatine Kinase 39 Troponin I Less than 0.02 L B-Natriuretic Peptide Total Protein Albumin Lipase Urine Color Urine Clarity Urine pH Ur Specific [place] Urine Protein Urine Glucose (UA) Urine Ketones Urine Occult Blood Urine Nitrate Urine Bilirubin Urine Urobilinogen Ur Leukocyte Esterase Urine RBC Urine WBC Ur Squamous Epith Cells Urine Bacteria Hyaline Casts Granular Casts Urine Mucus Micro UA Comment Urine Culture Comments Blood Type Antibody Screen Microbiology 01/04/18 23:05 Clean Catch Urine Urine Culture - Preliminary Results Pending - Imaging Impressions Chest CTA 01/04/18 21:06 CONCLUSION: 1. This study is negative for pulmonary embolism. Chest X-Ray 01/04/18 21:09 CONCLUSION: The lungs are clear. Cardiomegaly. Pelvis MRI 01/05/18 00:00 CONCLUSION: 1. Endometrium is abnormally thickened measuring up to 2.1 cm. As described above, there is a variant anatomy of the uterus likely representing an arcuate configuration with the right uterine horn having a somewhat thicker appearance than the left. However, no focal endometrial abnormality is identified. 2. No other significant abnormality is identified in the pelvis. Assessment and Plan - Plan Patient is a 53-year-old female anemia and GI bleed. Presented to the emergency room for evaluation of fever fatigue and abdominal pain. Also has a complaint of abnormal vaginal bleeding. She was recently hospitalized for severe transfusion. Colonoscopy done at that time was incomplete -scope was advanced only to hepatic flexure; polyps found-tubular adenomas. Pelvic ultrasound was done on 11/27/17 which found endometrium measuring 8 mm. Assessment/plan: Lower GI bleed/abnormal polyp/abdominal pain -Monitor H&H; Hemoccult positive -Gastroenterology consulted, appreciate recommendations -IV Protonix -Transfuse as needed -CT abdomen pelvis ordered Abnormal uterine bleeding -MRI pelvis done 01/05/18 indicated endometrium measuring 2.1 cm; arcurate configuration; normal ovaries; incidental finding of a right pelvic kidney. -Consult GI placed; appreciate assistance. Fever -Patient febrile on arrival to the emergency department; now afebrile -Chest x-ray without signs of acute cardiopulmonary disease; CT pulmonary angiogram negative -UA not suggestive of UTI, urine culture pending -No leukocytosis; Blood cultures pending -CAD Holding home aspirin secondary to GI bleed -Anemia Continue home iron Chest pain; resolved -serial troponins negative/EKG without signs of ischemia DVT prophylaxis -chemical prophylaxis not indicated due to bleed
--- NOTE | 2018-01-05 16:56 | P.CONGI ---
History of Present Illness Consult date: 01/05/18 Consult reason: Abdominal pain, GI bleed Chief complaint: GI bleed, chest pain r/o ACS History of Present Illness: This is a morbid obese 53-year-old female who came into the hospital on 2017 for evaluation of her generalized weakness, malaise and abdominal pain. Patient was seen in the [facility] back in November per GI and had 2 different GI procedures with EGD/colonoscopy Dr. Hager and Dr. Clements. Findings included polyps which were removed and patient was positive for hemorrhoids. Patient also had significant gastritis in the antrum and a few ulcerations were seen. Patient admits to taking 325 mg of aspirin every 6 hours for pain like her father used to, but drop the dose down to baby aspirin twice a day since that discharge home. Other current symptoms are not nausea and occasional vomiting and dyspepsia at least 3 times a week in which she alleviates with Tums. Aggregating factors are peanut butter, mustard, and red cells, it was recommended patient continue PPI on discharge , but patient has not been taking any PPI. Patient was noted to be heme positive in the ER and does note some lower abdominal pain with defecation and some cramping sensation in her lower abdomen with loose stool 1. Patient notes that she has a history of significant constipation and is currently taking iron supplements. She noticed most of her stools being hard formed with bright red blood surrounding the stool. She does note first to straining with her bowel movement and her last stool only was 2 hard formed bowels. Patient did have fever on admission this past p.m. of 102.3. Patient has family history of colon cancer mother and father in their 60s. Gastroenterology was consulted to assist with patient's current symptoms of lower abdominal pain and cramping, bright red rectal bleeding with straining and painful defecation, dyspepsia. Currently patient denies any melena stools or hematemesis. Current labs show hemoglobin 9.3 on admission now hemoglobin 8.3 PT/INR 1, alkaline phosphatase AST and ALT are all normal. Patient is also having vaginal bleeding with noted endometrial thickening per the record and she is pending MALLET CUTTER consult this admission. <Yulia Salazar - Last Filed: 01/05/18 17:00> Review of Systems All other systems reviewed negative except as stated in HPI <Yulia Salazar - Last Filed: 01/05/18 17:00> [facility] - History History Provided By: Patient - Medical History Medical History: Medical History (Last Reviewed 01/04/18 @ 21:42 by Lore Ring MD) Anemia CAD (coronary artery disease) PAD (peripheral artery disease) - Surgical History Surgical History: Surgical History (Last Reviewed 01/04/18 @ 21:42 by Lore Ring MD) No history of previous surgery - Family History Family History: Family History (Last Updated 01/05/18 @ 00:34 by Margaret Antonio MD) Other CAD (coronary artery disease) Colon cancer Dementia Diabetes mellitus Throat cancer - Tobacco History Second Hand Smoke Exposure: No Tobacco Use In Past 30 Days: No Smoking Status: Never smoker - Alcohol History How Often Do You Have a Drink Containing Alcohol: Never - Substance Use History Substance History: No History of Abuse - Travel History Recent Travel in the [place] Within the Last 8 Weeks: No Recent Travel Out of the Country Within the Last 8 Weeks: No - Immunization History Tetanus Immunization: <5 Years Hx Influenza Vaccine This Season: Yes <Yulia Salazar - Last Filed: 01/05/18 17:00> - Medical History Medical History: Medical History (Last Reviewed 01/04/18 @ 21:42 by Lore Ring MD) Anemia CAD (coronary artery disease) PAD (peripheral artery disease) - Surgical History Surgical History: Surgical History (Last Reviewed 01/04/18 @ 21:42 by Lore Ring MD) No history of previous surgery - Family History Family History: Family History (Last Updated 01/05/18 @ 00:34 by Margaret Antonio MD) Other CAD (coronary artery disease) Colon cancer Dementia Diabetes mellitus Throat cancer <Pedro Collins - Last Filed: 01/05/18 17:24> Medications and Allergies Active Medications: Active Medications Acetaminophen (Tylenol) 650 mg PO Q4H PRN PRN Reason: fever > 100.4 Ferrous Sulfate (Ferosul) 325 mg PO DAILY OZZY Last Admin: 01/05/18 08:34 Dose: 325 mg Furosemide (Lasix) 20 mg PO DAILY OZZY Last Admin: 01/05/18 08:34 Dose: 20 mg Lorazepam (Ativan Inj) 1 mg IV.PUSH Q6H PRN PRN Reason: ANXIETY Last Admin: 08/20/18 13:21 Dose: 1 mg Ondansetron HCl (Zofran Inj) 4 mg IV.PUSH Q6H PRN PRN Reason: NAUSEA OR VOMITING Last Admin: 01/05/18 12:49 Dose: 4 mg Pantoprazole Sodium (Protonix Inj) 40 mg IV.PUSH Q12H OZZY Last Admin: 01/05/18 12:28 Dose: 40 mg Sodium Chloride (Ns Flush) 2 ml IV.FLUSH UNSCH PRN PRN Reason: FLUSH AFTER USING IV ACCESS <Yulia Salazar - Last Filed: 01/05/18 17:00> Active Medications: Active Medications Acetaminophen (Tylenol) 650 mg PO Q4H PRN PRN Reason: fever > 100.4 Ferrous Sulfate (Ferosul) 325 mg PO DAILY [facility] Last Admin: 01/05/18 08:34 Dose: 325 mg Furosemide (Lasix) 20 mg PO DAILY [facility] Last Admin: 01/05/18 08:34 Dose: 20 mg Hydrocortisone Acetate (Anusol-Hc) 1 applicatio RECTAL TID [facility] Lorazepam (Ativan Inj) 1 mg IV.PUSH Q6H PRN PRN Reason: ANXIETY Last Admin: 01/05/18 13:21 Dose: 1 mg Ondansetron HCl (Zofran Inj) 4 mg IV.PUSH Q6H PRN PRN Reason: NAUSEA OR VOMITING Last Admin: 01/05/18 12:49 Dose: 4 mg Pantoprazole Sodium (Protonix Inj) 40 mg IV.PUSH Q12H [facility] Last Admin: 01/05/18 12:28 Dose: 40 mg Polyethylene Glycol (Miralax) 17 gm PO DAILY [facility] Sodium Chloride (Ns Flush) 2 ml IV.FLUSH UNSCH PRN PRN Reason: FLUSH AFTER USING IV ACCESS <Pedro Collins - Last Filed: 01/05/18 17:24> Allergies Allergy/AdvReac Type Severity Reaction Status Date / Time No Known Allergies Allergy Verified 01/04/18 20:30 Home Medications Medication Instructions Recorded Confirmed Type aspirin 324 mg PO Q6HR 11/26/17 01/04/18 History ferrous sulfate 325 mg PO DAILY 01/04/18 01/04/18 History Exam Vital signs: Vital Signs 01/04/18 20:30 01/04/18 20:47 01/04/18 21:30 Temperature 102.3 F H Pulse Rate 119 H 113 H 109 H Respiratory Rate 24 20 18 Blood Pressure 148/80 H 156/72 H 126/61 Pulse Oximetry 97 98 93 L 01/04/18 22:04 01/05/18 00:38 01/05/18 03:03 Temperature 98.1 F Pulse Rate 92 H Respiratory Rate 18 22 Blood Pressure 127/62 Pulse Oximetry 96 93 L 01/05/18 06:45 01/05/18 08:00 01/05/18 08:25 Temperature 98.1 F Pulse Rate 92 H 86 Respiratory Rate 20 Blood Pressure 119/58 L Pulse Oximetry 96 93 L 01/05/18 09:47 01/05/18 12:00 01/05/18 16:00 Temperature 97.0 F L 98.2 F Pulse Rate 90 94 H 92 H Respiratory Rate 18 18 Blood Pressure 131/69 113/56 L Pulse Oximetry 95 96 Intake & Output 01/04/18 01/05/18 01/05/18 18:59 06:59 18:59 Intake Total 500 / 500 640 / 640 Balance 500 / 500 640 / 640 Weight 176.901 kg 176.901 kg Intake: IV 500 / 500 NS Inj 500 ML @ Wide Open IV. 500 / 500 SIG ONCE ONE Rx#:[id number] Oral 640 / 640 Other: # Voids 1 2 Date of Last Bowel Movement 01/04/18 # Bowel Movements 0 Weight On Admission 176.901 kg - Constitutional no acute distress, morbidly obese - Routine HEENT Exam Head: Present: normocephalic (Obese) ENT: Present: mucous membranes moist - Routine Neck Exam Present: supple - Routine Respiratory Exam Present: accessory muscle use (Obese) - Routine Cardiovascular Exam Present: S1 ( low volumes but no obvious shortness of breath wheezing or rhonchi ), S2 (Distant) - Routine Abdominal Exam Present: soft (Soft bowel sounds, round, obese, no obvious distention, mild lower abdominal discomfort which waxes and wanes) - Routine Neurological Exam Present: alert (Answer simple questions) <Yulia Salazar - Last Filed: 01/05/18 17:00> Vital signs: Vital Signs 01/04/18 20:30 01/04/18 20:47 01/04/18 21:30 Temperature 102.3 F H Pulse Rate 119 H 113 H 109 H Respiratory Rate 24 20 18 Blood Pressure 148/80 H 156/72 H 126/61 Pulse Oximetry 97 98 93 L 01/04/18 22:04 01/05/18 00:38 01/05/18 03:03 Temperature 98.1 F Pulse Rate 92 H Respiratory Rate 18 22 Blood Pressure 127/62 Pulse Oximetry 96 93 L 01/05/18 06:45 01/05/18 08:00 01/05/18 08:25 Temperature 98.1 F Pulse Rate 92 H 86 Respiratory Rate 20 Blood Pressure 119/58 L Pulse Oximetry 96 93 L 01/05/18 09:47 01/05/18 12:00 01/05/18 16:00 Temperature 97.0 F L 98.2 F Pulse Rate 90 94 H 92 H Respiratory Rate 18 18 Blood Pressure 131/69 113/56 L Pulse Oximetry 95 96 Intake & Output 01/04/18 01/05/18 01/05/18 18:59 06:59 18:59 Intake Total 500 / 500 640 / 640 Balance 500 / 500 640 / 640 Weight 176.901 kg 176.901 kg Intake: IV 500 / 500 NS Inj 500 ML @ Wide Open IV. 500 / 500 SIG ONCE ONE Rx#:[id number] Oral 640 / 640 Other: # Voids 1 2 Date of Last Bowel Movement 01/04/18 # Bowel Movements 0 Weight On Admission 176.901 kg <Pedro Collins E - Last Filed: 01/05/18 17:24> Results - Labs CBC & Chem 7: 01/05/18 15:37 01/04/18 21:20 Labs: Laboratory Results - last 24 hr 01/04/18 01/04/18 01/04/18 21:20 21:20 21:20 WBC RBC Hgb Hct MCV MCH MCHC RDW Plt Count MPV Prelim Diff (Auto) Neut % (Auto) Lymph % (Auto) [place] % (Auto) Eos % (Auto) Baso % (Auto) Neut # (Auto) Lymph # (Auto) [place] # (Auto) Eos # (Auto) Baso # (Auto) WBC Differential Diff Scan Differential Comment PT INR APTT Sodium Potassium Chloride Carbon Dioxide Anion Gap BUN Creatinine Estimated GFR Random Glucose Calcium Magnesium Iron TIBC Iron & TIBC % Saturation Total Bilirubin AST ALT Alkaline Phosphatase Total Creatine Kinase Troponin I B-Natriuretic Peptide 16 Total Protein Albumin Lipase Cancelled Urine Color Urine Clarity Urine pH Ur Specific [place] Urine Protein Urine Glucose (UA) Urine Ketones Urine Occult Blood Urine Nitrate Urine Bilirubin Urine Urobilinogen Ur Leukocyte Esterase Urine RBC Urine WBC Ur Squamous Epith Cells Urine Bacteria Hyaline Casts Granular Casts Urine Mucus Micro UA Comment Urine Culture Comments Blood Type O Positive Antibody Screen Negative 01/04/18 01/04/18 01/04/18 21:20 21:20 21:20 WBC 9.0 RBC 4.52 Hgb 9.3 L Hct 31.0 L MCV 68.6 L MCH 20.6 L MCHC 30.0 L RDW 26.2 H Plt Count 401 MPV 9.0 Prelim Diff (Auto) Slide review pending Neut % (Auto) 81.6 H Lymph % (Auto) 11.3 [place] % (Auto) 5.3 Eos % (Auto) 1.2 Baso % (Auto) 0.6 Neut # (Auto) 7.3 Lymph # (Auto) 1.0 [place] # (Auto) 0.5 Eos # (Auto) 0.1 Baso # (Auto) 0.1 WBC Differential . Diff Scan Auto diff confirmed Differential Comment . PT 10.5 INR 1.0 APTT 28.0 Sodium 135 L Potassium 4.0 Chloride 99 Carbon Dioxide 28.7 Anion Gap 7 BUN 11 Creatinine 0.69 Estimated GFR 88 L Random Glucose 111 H Calcium 8.9 Magnesium 2.0 Iron TIBC Iron & TIBC % Saturation Total Bilirubin 0.5 AST 20 ALT 25 Alkaline Phosphatase 84 Total Creatine Kinase 32 Troponin I Less than 0.02 L B-Natriuretic Peptide Total Protein 8.0 Albumin 3.0 L Lipase 64 L Urine Color Urine Clarity Urine pH Ur Specific [place] Urine Protein Urine Glucose (UA) Urine Ketones Urine Occult Blood Urine Nitrate Urine Bilirubin Urine Urobilinogen Ur Leukocyte Esterase Urine RBC Urine WBC Ur Squamous Epith Cells Urine Bacteria Hyaline Casts Granular Casts Urine Mucus Micro UA Comment Urine Culture Comments Blood Type Antibody Screen 01/04/18 01/05/18 01/05/18 23:05 03:30 03:30 WBC RBC Hgb 8.3 L Hct 27.3 L MCV MCH MCHC RDW Plt Count MPV Prelim Diff (Auto) Neut % (Auto) Lymph % (Auto) [place] % (Auto) Eos % (Auto) Baso % (Auto) Neut # (Auto) Lymph # (Auto) [place] # (Auto) Eos # (Auto) Baso # (Auto) WBC Differential Diff Scan Differential Comment PT INR APTT Sodium Potassium Chloride Carbon Dioxide Anion Gap BUN Creatinine Estimated GFR Random Glucose Calcium Magnesium Iron TIBC Iron & TIBC % Saturation Total Bilirubin AST ALT Alkaline Phosphatase Total Creatine Kinase 31 Troponin I Less than 0.02 L B-Natriuretic Peptide Total Protein Albumin Lipase Urine Color Yellow Urine Clarity Hazy H Urine pH 5.0 Ur Specific [place] 1.027 Urine Protein Negative Urine Glucose (UA) Negative Urine Ketones Negative Urine Occult Blood Negative Urine Nitrate Negative Urine Bilirubin Negative Urine Urobilinogen Less than 2 Ur Leukocyte Esterase Negative Urine RBC 1 Urine WBC 2 Ur Squamous Epith Cells 1 Urine Bacteria Rare H Hyaline Casts 5 Granular Casts 1 Urine Mucus Many H Micro UA Comment Cath-culture ind Urine Culture Comments Cath-cult indicated Blood Type Antibody Screen 01/05/18 01/05/18 01/05/18 11:30 11:30 15:37 WBC RBC Hgb 8.6 L Hct 28.8 L MCV MCH MCHC RDW Plt Count MPV Prelim Diff (Auto) Neut % (Auto) Lymph % (Auto) [place] % (Auto) Eos % (Auto) Baso % (Auto) Neut # (Auto) Lymph # (Auto) [place] # (Auto) Eos # (Auto) Baso # (Auto) WBC Differential Diff Scan Differential Comment PT INR APTT Sodium Potassium Chloride Carbon Dioxide Anion Gap BUN Creatinine Estimated GFR Random Glucose Calcium Magnesium Iron 32 L Cancelled TIBC 385 Cancelled Iron & TIBC Cancelled % Saturation 8.3 L Cancelled Total Bilirubin AST ALT Alkaline Phosphatase Total Creatine Kinase 39 Troponin I Less than 0.02 L B-Natriuretic Peptide Total Protein Albumin Lipase Urine Color Urine Clarity Urine pH Ur Specific [place] Urine Protein Urine Glucose (UA) Urine Ketones Urine Occult Blood Urine Nitrate Urine Bilirubin Urine Urobilinogen Ur Leukocyte Esterase Urine RBC Urine WBC Ur Squamous Epith Cells Urine Bacteria Hyaline Casts Granular Casts Urine Mucus Micro UA Comment Urine Culture Comments Blood Type Antibody Screen - Imaging Impressions Chest CTA 01/04/18 21:06 CONCLUSION: 1. This study is negative for pulmonary embolism. Chest X-Ray 01/04/18 21:09 CONCLUSION: The lungs are clear. Cardiomegaly. Pelvis MRI 01/05/18 00:00 CONCLUSION: 1. Endometrium is abnormally thickened measuring up to 2.1 cm. As described above, there is a variant anatomy of the uterus likely representing an arcuate configuration with the right uterine horn having a somewhat thicker appearance than the left. However, no focal endometrial abnormality is identified. 2. No other significant abnormality is identified in the pelvis. <Yulia Salazar Michael - Last Filed: 01/05/18 17:00> - Labs CBC & Chem 7: 01/05/18 15:37 01/04/18 21:20 Labs: Laboratory Results - last 24 hr 01/04/18 01/04/18 01/04/18 21:20 21:20 21:20 WBC RBC Hgb Hct MCV MCH MCHC RDW Plt Count MPV Prelim Diff (Auto) Neut % (Auto) Lymph % (Auto) [place] % (Auto) Eos % (Auto) Baso % (Auto) Neut # (Auto) Lymph # (Auto) [place] # (Auto) Eos # (Auto) Baso # (Auto) WBC Differential Diff Scan Differential Comment PT INR APTT Sodium Potassium Chloride Carbon Dioxide Anion Gap BUN Creatinine Estimated GFR Random Glucose Calcium Magnesium Iron TIBC Iron & TIBC % Saturation Total Bilirubin AST ALT Alkaline Phosphatase Total Creatine Kinase Troponin I B-Natriuretic Peptide 16 Total Protein Albumin Lipase Cancelled Urine Color Urine Clarity Urine pH Ur Specific [place] Urine Protein Urine Glucose (UA) Urine Ketones Urine Occult Blood Urine Nitrate Urine Bilirubin Urine Urobilinogen Ur Leukocyte Esterase Urine RBC Urine WBC Ur Squamous Epith Cells Urine Bacteria Hyaline Casts Granular Casts Urine Mucus Micro UA Comment Urine Culture Comments Blood Type O Positive Antibody Screen Negative 01/04/18 01/04/18 01/04/18 21:20 21:20 21:20 WBC 9.0 RBC 4.52 Hgb 9.3 L Hct 31.0 L MCV 68.6 L MCH 20.6 L MCHC 30.0 L RDW 26.2 H Plt Count 401 MPV 9.0 Prelim Diff (Auto) Slide review pending Neut % (Auto) 81.6 H Lymph % (Auto) 11.3 [place] % (Auto) 5.3 Eos % (Auto) 1.2 Baso % (Auto) 0.6 Neut # (Auto) 7.3 Lymph # (Auto) 1.0 [place] # (Auto) 0.5 Eos # (Auto) 0.1 Baso # (Auto) 0.1 WBC Differential . Diff Scan Auto diff confirmed Differential Comment . PT 10.5 INR 1.0 APTT 28.0 Sodium 135 L Potassium 4.0 Chloride 99 Carbon Dioxide 28.7 Anion Gap 7 BUN 11 Creatinine 0.69 Estimated GFR 88 L Random Glucose 111 H Calcium 8.9 Magnesium 2.0 Iron TIBC Iron & TIBC % Saturation Total Bilirubin 0.5 AST 20 ALT 25 Alkaline Phosphatase 84 Total Creatine Kinase 32 Troponin I Less than 0.02 L B-Natriuretic Peptide Total Protein 8.0 Albumin 3.0 L Lipase 64 L Urine Color Urine Clarity Urine pH Ur Specific [place] Urine Protein Urine Glucose (UA) Urine Ketones Urine Occult Blood Urine Nitrate Urine Bilirubin Urine Urobilinogen Ur Leukocyte Esterase Urine RBC Urine WBC Ur Squamous Epith Cells Urine Bacteria Hyaline Casts Granular Casts Urine Mucus Micro UA Comment Urine Culture Comments Blood Type Antibody Screen 01/04/18 01/05/18 01/05/18 23:05 03:30 03:30 WBC RBC Hgb 8.3 L Hct 27.3 L MCV MCH MCHC RDW Plt Count MPV Prelim Diff (Auto) Neut % (Auto) Lymph % (Auto) [place] % (Auto) Eos % (Auto) Baso % (Auto) Neut # (Auto) Lymph # (Auto) [place] # (Auto) Eos # (Auto) Baso # (Auto) WBC Differential Diff Scan Differential Comment PT INR APTT Sodium Potassium Chloride Carbon Dioxide Anion Gap BUN Creatinine Estimated GFR Random Glucose Calcium Magnesium Iron TIBC Iron & TIBC % Saturation Total Bilirubin AST ALT Alkaline Phosphatase Total Creatine Kinase 31 Troponin I Less than 0.02 L B-Natriuretic Peptide Total Protein Albumin Lipase Urine Color Yellow Urine Clarity Hazy H Urine pH 5.0 Ur Specific [place] 1.027 Urine Protein Negative Urine Glucose (UA) Negative Urine Ketones Negative Urine Occult Blood Negative Urine Nitrate Negative Urine Bilirubin Negative Urine Urobilinogen Less than 2 Ur Leukocyte Esterase Negative Urine RBC 1 Urine WBC 2 Ur Squamous Epith Cells 1 Urine Bacteria Rare H Hyaline Casts 5 Granular Casts 1 Urine Mucus Many H Micro UA Comment Cath-culture ind Urine Culture Comments Cath-cult indicated Blood Type Antibody Screen 01/05/18 01/05/18 01/05/18 11:30 11:30 15:37 WBC RBC Hgb 8.6 L Hct 28.8 L MCV MCH MCHC RDW Plt Count MPV Prelim Diff (Auto) Neut % (Auto) Lymph % (Auto) [place] % (Auto) Eos % (Auto) Baso % (Auto) Neut # (Auto) Lymph # (Auto) [place] # (Auto) Eos # (Auto) Baso # (Auto) WBC Differential Diff Scan Differential Comment PT INR APTT Sodium Potassium Chloride Carbon Dioxide Anion Gap BUN Creatinine Estimated GFR Random Glucose Calcium Magnesium Iron 32 L Cancelled TIBC 385 Cancelled Iron & TIBC Cancelled % Saturation 8.3 L Cancelled Total Bilirubin AST ALT Alkaline Phosphatase Total Creatine Kinase 39 Troponin I Less than 0.02 L B-Natriuretic Peptide Total Protein Albumin Lipase Urine Color Urine Clarity Urine pH Ur Specific [place] Urine Protein Urine Glucose (UA) Urine Ketones Urine Occult Blood Urine Nitrate Urine Bilirubin Urine Urobilinogen Ur Leukocyte Esterase Urine RBC Urine WBC Ur Squamous Epith Cells Urine Bacteria Hyaline Casts Granular Casts Urine Mucus Micro UA Comment Urine Culture Comments Blood Type Antibody Screen - Imaging Impressions Chest CTA 01/04/18 21:06 CONCLUSION: 1. This study is negative for pulmonary embolism. Chest X-Ray 01/04/18 21:09 CONCLUSION: The lungs are clear. Cardiomegaly. Pelvis MRI 01/05/18 00:00 CONCLUSION: 1. Endometrium is abnormally thickened measuring up to 2.1 cm. As described above, there is a variant anatomy of the uterus likely representing an arcuate configuration with the right uterine horn having a somewhat thicker appearance than the left. However, no focal endometrial abnormality is identified. 2. No other significant abnormality is identified in the pelvis. <Pedro Collins E - Last Filed: 01/05/18 17:24> Assessment and Plan - Plan Bright red rectal blood noted with defecation and straining History of constipation and acute constipation Heme positive stool in the ER Gastritis and gastric ulcerations, seen on EGD back in November. Patient admits to taking 325 aspirin every 6 hours for pain and is currently still taking baby aspirin twice a day for pain. Patient was recommended to maintain on PPI on discharge but no PPI has been taken. History of anemia currently being managed on ferrous sulfate history of polyps history of hemorrhoids. Both seen on colonoscopy which was performed twice back in November, questionable poor prep. History of polyps which were removed Generalized weakness and fatigue and fever of 102.3 noted this past p.m. on admission to the hospital patient is a 390 pound morbidly obese female who is in the [place] facility back in November with previous GI workup. Patient had 2 colonoscopies one EGD back in November per Dr. Hager and Dr. Clements. Patient does have positive family history of colon cancer with mom and dad in their 60s. Current labs show hemoglobin decrease on admission from 9.3-8.3, positive for dyspepsia at least 3 times a week which is usually relieved with Tums. Aggregating factors are peanut butter, mustard, and red sauce. Note vaginal bleeding currently being evaluated along with endometrial thickness. MALLET CUTTER consult is pending. CT scan of the abdomen is pending Plan Diet regular diet but currently n.p.o. pending CT scan of the abdomen Monitor hemoglobin for any further changes. And transfuse as needed. Ferrous sulfate Anusol HC suppositories \MiraLAX daily Zofran PPI IV twice daily After CT scan further recommendations to follow Patient was seen per myself and Dr. Collins, note was written on his behalf <Yulia Salazar M - Last Filed: 01/05/18 17:00> - Attending Attestation Patient seen and examined Agree with above Continue with current supportive care Monitor labs and transfuse as needed Await CT of the abdomen Most likely cause of rectal bleeding is hemorrhoidal probably secondary to constipation Constipation precautions <Pedro Collins - Last Filed: 01/05/18 17:24>
--- NOTE | 2018-01-05 20:18 | CT ---
EXAM DATE: 01/05/2018 8:05 PM EDT AGE/SEX: 53 years / Female INDICATIONS: Left lower abdomen pain and nausea today. CLINICAL DATA: This is the patient's initial encounter. Patient reports that signs and symptoms have been present for 1 day and indicates a pain score of 7/10. MEDICAL/SURGICAL HISTORY: Anemia. Hypertension. Peripheral artery disease. None. RADIATION DOSE: 15.39 CTDI (mGy) COMPARISON: [facility], CT ABDOMEN & PELVIS W CONTRAST, 11/26/2017. . TECHNIQUE: Multiple contiguous axial images were obtained through the abdomen. Images were obtained using multiple row detector helical technique. Using automated exposure control and adjustment of the mA and/or kV according to patient size, radiation dose was kept as low as reasonably achievable to o btain optimal diagnostic quality images. DICOM format image data is available electronically for rev iew and comparison. FINDINGS: There is image degradation due to out of field artifact from patient's large body habitus e xceeding the [id number] of the exam. There are diffuse streak artifacts throughout the images whic h limits the diagnostic quality of the examination. Lower Lungs: The visualized lower lungs are clear. Liver: The liver is enlarged measuring 22 cm in superior/inferior extent. No gross abnormality seen w ithin the liver, however, streak artifact obscures the parenchymal detail.. No calcified gallstones. Spleen: Enlarged spleen without gross abnormality. Superior/inferior dimension is 15 cm. Pancreas: Unremarkable without mass or calcification. Kidneys: Right pelvic kidney. Orthotopic left kidney. No evidence of hydronephrosis and no calcified renal stones. Adrenal Glands: Unremarkable. Aorta: The aorta and proximal iliac vessels are grossly unremarkable without aneurysmal dilation. Bowel/Mesentery: No dilated loops of small or large bowel. Oral contrast passes through to the right colon. No gross abnormality seen in the region of the sigmoid, however, streak artifact does obscure portions of the sigmoid colon. (Prior CT had demonstrated diverticula in the sigmoid colon without r adiographic evidence of diverticulitis.) There is no evidence of free fluid. Abdominal Wall: Intact. Retroperitoneum: No evidence of adenopathy in the retrocrural, para-aortic, or deep pelvic regions. Bladder: Contours are smooth. Reproductive Organs: No abnormal masses or calcifications seen. Inguinal: The inguinal region is unremarkable without evidence of adenopathy. Bony Structures: Diffuse moderate severity degenerative changes in the posterior elements of the lum bar spine. CONCLUSION: 1. No acute findings in the abdomen and pelvis. 2. Hepatosplenomegaly. 3. Limited quality examination due to patient's body habitus. Electronically signed by: Dallas Rico MD 01/05/2018 8:16 PM EDT
--- NOTE | 2018-01-05 22:49 | P.CONOB ---
History of Present Illness Primary Care Physician: No Primary Care Physician Chief Complaint: Postmenopausal vaginal bleeding History of Present Illness: Patient is 53-year-old morbidly obese white female G0 who is a having abnormal postmenopausal bleeding intermittently and sporadically over the last 4 years she states that she had periods are regular abdomen age 48 and then nothing for about a year and over the last 4 years she is just had once every 2- 6 months will have a bleeding episode that is's passing small clots. She has a chronic anemia and is in the hospital with a GI bleed workup. She has no pelvic pain to speak of Para: 0 : 0 Review of Systems Constitutional: Reports fatigue, Reports lack of energy, Reports malaise, Reports weakness Cardiovascular: Denies chest pain, Denies chest pain at rest, Denies chest pain with activity, Denies excessive sweating, Denies fainting, Denies fast heart rate, Denies foot swelling, Denies generalized swelling, Denies irregular heart rhythm, Denies leg pain with activity, Denies leg sores, Denies leg swelling, Denies lightheadedness, Denies radiating jaw, neck or arm pain, Denies rapid, pounding, or irregular heartbeat, Denies shortness of breath, Denies shortness of breath with activity, Denies shortness of breath when lying down, Denies shortness of breath causing sudden awakening, Denies slow heart rate, Denies other Respiratory: Denies change in phlegm color, Denies chest congestion, Denies cough, Denies coughing up blood, Denies excessive phlegm production, Denies pain on inspiration, Denies pain with cough, Denies shortness of breath, Denies shortness of breath with activity, Denies snoring, Denies stridor, Denies wheezing, Denies other Gastrointestinal: Denies abdominal pain, Denies belching, Denies black, tarry stools, Denies bloating, Denies bright, red blood in stools, Denies change in bowel habits, Denies constant urge to pass stool, Denies change in stools, Denies coffee ground vomit, Denies constipation, Denies cramping, Denies difficulty swallowing, Denies excessive passing of gas, Denies feeling full early, Denies heartburn, Denies incontinent of stools, Denies loose stools, Denies nausea, Denies pain with swallowing, Denies vomiting, Denies vomiting blood, Denies other Genitourinary: Reports abnormal vaginal bleeding PMFSH - History History Provided By: Patient - Medical History Medical History: Medical History (Last Reviewed 01/04/18 @ 21:42 by Lore Ring MD) Anemia CAD (coronary artery disease) PAD (peripheral artery disease) - Surgical History Surgical History: Surgical History (Last Reviewed 01/04/18 @ 21:42 by Lore Ring MD) No history of previous surgery - Family History Family History: Family History (Last Updated 01/05/18 @ 00:34 by Margaret Antonio MD) Other CAD (coronary artery disease) Colon cancer Dementia Diabetes mellitus Throat cancer - Tobacco History Second Hand Smoke Exposure: No Tobacco Use In Past 30 Days: No Smoking Status: Never smoker - Alcohol History How Often Do You Have a Drink Containing Alcohol: Never - Substance Use History Substance History: No History of Abuse - Travel History Recent Travel in the [facility] Within the Last 8 Weeks: No Recent Travel Out of the Country Within the Last 8 Weeks: No - Immunization History Tetanus Immunization: <5 Years Hx Influenza Vaccine This Season: Yes Medications and Allergies Active Medications: Active Medications Acetaminophen (Tylenol) 650 mg PO Q4H PRN PRN Reason: fever > 100.4 Ferrous Sulfate (Ferosul) 325 mg PO DAILY OZZY Last Admin: 01/05/18 08:34 Dose: 325 mg Furosemide (Lasix) 20 mg PO DAILY OZZY Last Admin: 01/05/18 08:34 Dose: 20 mg Hydrocortisone Acetate (Anusol-Hc) 1 applicatio RECTAL TID OZZY Lorazepam (Ativan Inj) 1 mg IV.PUSH Q6H PRN PRN Reason: ANXIETY Last Admin: 01/05/18 13:21 Dose: 1 mg Ondansetron HCl (Zofran Inj) 4 mg IV.PUSH Q6H PRN PRN Reason: NAUSEA OR VOMITING Last Admin: 01/05/18 12:49 Dose: 4 mg Pantoprazole Sodium (Protonix Inj) 40 mg IV.PUSH Q12H OZZY Last Admin: 01/05/18 12:28 Dose: 40 mg Polyethylene Glycol (Miralax) 17 gm PO DAILY OZZY Sodium Chloride (Ns Flush) 2 ml IV.FLUSH UNSCH PRN PRN Reason: FLUSH AFTER USING IV ACCESS Allergies Allergy/AdvReac Type Severity Reaction Status Date / Time No Known Allergies Allergy Verified 01/04/18 20:30 Home Medications Medication Instructions Recorded Confirmed Type aspirin 324 mg PO Q6HR 11/26/17 01/04/18 History ferrous sulfate 325 mg PO DAILY 01/04/18 01/04/18 History Exam Vital signs: Vital Signs 01/05/18 00:38 01/05/18 03:03 01/05/18 06:45 Temperature 98.1 F Pulse Rate 92 H 92 H Respiratory Rate 18 22 Blood Pressure 127/62 Pulse Oximetry 93 L 01/05/18 08:00 01/05/18 08:25 01/05/18 09:47 Temperature 98.1 F Pulse Rate 86 90 Respiratory Rate 20 Blood Pressure 119/58 L Pulse Oximetry 96 93 L 01/05/18 12:00 01/05/18 16:00 01/05/18 20:00 Temperature 97.0 F L 98.2 F 98.9 F Pulse Rate 94 H 92 H 98 H Respiratory Rate 18 18 18 Blood Pressure 131/69 113/56 L 134/70 Pulse Oximetry 95 96 92 L Intake & Output 01/05/18 01/05/18 01/06/18 06:59 18:59 06:59 Intake Total 500 / 500 640 / 640 Balance 500 / 500 640 / 640 Weight 176.901 kg 176.901 kg Intake: IV 500 / 500 NS Inj 500 ML @ Wide Open IV. 500 / 500 SIG ONCE ONE Rx#:[id number] Oral 640 / 640 Other: # Voids 1 2 3 Date of Last Bowel Movement 01/04/18 01/04/18 # Bowel Movements 0 Weight On Admission 176.901 kg - Constitutional no acute distress, morbidly obese - Routine HEENT Exam Head: Present: normocephalic Eye: Present: PERRL - Routine Respiratory Exam Present: CTA bilaterally - Routine Cardiovascular Exam Present: RRR - Routine Abdominal Exam Present: soft Comments: Morbidly obese - Routine Exam Comments: Patient's pelvic exam reveals normal external genitalia she has an intact hymen and virginal introitus and will only allow one finger into the vagina comfortably. The cervix is small and nulliparous and palpation palpates as normal there is no mass or other abnormality there is no blood in the vagina no blood on medical exam glove Results - Labs CBC & Chem 7: 01/05/18 15:37 01/04/18 21:20 Labs: Laboratory Results - last 24 hr 01/04/18 01/05/18 01/05/18 23:05 03:30 03:30 Hgb 8.3 L Hct 27.3 L Iron TIBC Iron & TIBC % Saturation Total Creatine Kinase 31 Troponin I Less than 0.02 L Urine Color Yellow Urine Clarity Hazy H Urine pH 5.0 Ur Specific [place] 1.027 Urine Protein Negative Urine Glucose (UA) Negative Urine Ketones Negative Urine Occult Blood Negative Urine Nitrate Negative Urine Bilirubin Negative Urine Urobilinogen Less than 2 Ur Leukocyte Esterase Negative Urine RBC 1 Urine WBC 2 Ur Squamous Epith Cells 1 Urine Bacteria Rare H Hyaline Casts 5 Granular Casts 1 Urine Mucus Many H Micro UA Comment Cath-culture ind Urine Culture Comments Cath-cult indicated 01/05/18 01/05/18 01/05/18 11:30 11:30 15:37 Hgb 8.6 L Hct 28.8 L Iron 32 L Cancelled TIBC 385 Cancelled Iron & TIBC Cancelled % Saturation 8.3 L Cancelled Total Creatine Kinase 39 Troponin I Less than 0.02 L Urine Color Urine Clarity Urine pH Ur Specific [place] Urine Protein Urine Glucose (UA) Urine Ketones Urine Occult Blood Urine Nitrate Urine Bilirubin Urine Urobilinogen Ur Leukocyte Esterase Urine RBC Urine WBC Ur Squamous Epith Cells Urine Bacteria Hyaline Casts Granular Casts Urine Mucus Micro UA Comment Urine Culture Comments - Imaging Impressions Chest CTA 01/04/18 21:06 CONCLUSION: 1. This study is negative for pulmonary embolism. Abdomen/Pelvis CT 01/05/18 00:00 CONCLUSION: 1. No acute findings in the abdomen and pelvis. 2. Hepatosplenomegaly. 3. Limited quality examination due to patient's body habitus. Pelvis MRI 01/05/18 00:00 CONCLUSION: 1. Endometrium is abnormally thickened measuring up to 2.1 cm. As described above, there is a variant anatomy of the uterus likely representing an arcuate configuration with the right uterine horn having a somewhat thicker appearance than the left. However, no focal endometrial abnormality is identified. 2. No other significant abnormality is identified in the pelvis. On pelvic ultrasound transvaginal scan the endometrial thickness is only 8 mm Caprini VTE Risk Assessment Caprini VTE Risk Assessment: Moderate/High Risk (score >= 2) Caprini Risk Assessment Model: Point Value = 1 Point Value = 2 Point Value = 3 Point Value = 5 Age 41-60 Minor surgery BMI > 25 kg/m2 Swollen legs Varicose veins or History of unexplained or recurrent spontaneous Oral contraceptives or hormone replacement Sepsis (< 1 month) Serious lung disease, including pneumonia (< 1 month) Abnormal pulmonary function Acute myocardial infarction Congestive heart failure (< 1 month) History of inflammatory bowel disease Medical patient at bed rest Age 61-74 Arthroscopic surgery Major open surgery (> 45 min) Laparoscopic surgery (> 45 min) Malignancy Confined to bed (> 72 hours) Immobilizing plaster cast Central venous access Age >= 75 History of VTE Family history of VTE Factor V Leiden Prothrombin [id number] Lupus anticoagulant Anticardiolipin antibodies Elevated serum homocysteine Heparin-induced thrombocytopenia Other congenital or acquired thrombophilia Stroke (< 1 month) Elective arthroplasty Hip, pelvis, or leg fracture Acute spinal cord injury (< 1 month) Prophylaxis Regimen: Total Risk Factor Score Risk Level Prophylaxis Regimen 0-1 Low Early ambulation 2 Moderate Order ONE of the following: *Sequential Compression Device (SCD) *Heparin 5000 units SQ BID 3-4 Higher Order ONE of the following medications: *Heparin 5000 units SQ TID *Enoxaparin/Lovenox 40 mg SQ daily (WT < 150 kg, CrCl > 30 mL/min) *Enoxaparin/Lovenox 30 mg SQ daily (WT < 150 kg, CrCl > 10-29 mL/min) *Enoxaparin/Lovenox 30 mg SQ BID (WT < 150 kg, CrCl > 30 mL/min) AND/OR *Sequential Compression Device (SCD) 5 or more Highest Order ONE of the following medications: *Heparin 5000 units SQ TID (Preferred with Epidurals) *Enoxaparin/Lovenox 40 mg SQ daily (WT < 150 kg, CrCl > 30 mL/min) *Enoxaparin/Lovenox 30 mg SQ daily (WT < 150 kg, CrCl > 10-29 mL/min) *Enoxaparin/Lovenox 30 mg SQ BID (WT < 150 kg, CrCl > 30 mL/min) AND *Sequential Compression Device (SCD) Assessment and Plan - Diagnosis (1) Post-menopausal bleeding Code(s): N95.0 - Postmenopausal bleeding Status: Acute (2) Morbid obesity Code(s): E66.01 - Morbid (severe) obesity due to excess calories Status: Acute - Plan Patient should receive an endometrial biopsy as an outpatient, several factors increase her risk for endometrial neoplasia --1. postmenopausal bleeding 2. morbid obesity 3. Nulliparity I discussed the patient with Dr. Braun the SENS[employer]ER doctor epic application coordinator koki and she recommended the patient information be transferred to her so she can have her nurse give her a call and try and work her in as an outpatient for evaluation and possible endometrial biopsy
[2018-01-06] MEDS: Pantoprazole Inj 40 MG Vial IV.PUSH SCH ×2 (01:32→13:15)
[2018-01-06 07:15] LABS: Baso % (Auto) 0.7 % (0.0-2.0); Eos # (Auto) 0.2 th/mm3 (0.0-0.4); Eos % (Auto) 3.7 % (0.0-4.0); Hematocrit 27.1 % (35.0-46.0); Hemoglobin 8.1 gm/dL (11.6-15.3); Lymph % (Auto) 16.4 % (9.0-44.0); Mean Corpuscular Hemoglobin 20.9 pg (27.0-34.0); Mean Corpuscular Volume 70.1 fL (80.0-100.0); Mean Platelet Volume 8.7 fL (7.0-11.0); Mono # (Auto) 0.6 th/mm3 (0.0-0.9); Mono % (Auto) 9.3 % (0.0-8.0); Neut # (Auto) 4.2 th/mm3 (1.8-7.7); Neut % (Auto) 69.9 % (16.0-70.0); Platelet Count 349 th/mm3 (150-450); Red Blood Count 3.87 mil/mm3 (4.00-5.30); Red Cell Distribution Width 24.2 % (11.6-17.2); White Blood Count 6.1 th/mm3 (4.0-11.0)
[2018-01-06 07:37] LABS: Albumin 2.6 g/dL (3.4-5.0); Anion Gap 10 meq/L (5-15); Aspartate Aminotransferase 21 U/L (15-37); Blood Urea Nitrogen 8 mg/dL (7-18); Calcium 8.2 mg/dL (8.5-10.1); Carbon Dioxide 28.8 meq/L (21.0-32.0); Chloride 99 meq/L (98-107); Glomerular Filtration Rate Greater Than 89 mL/min (>89); Glucose,Random 130 mg/dL (74-106); Potassium 3.6 meq/L (3.5-5.1); Sodium 138 meq/L (136-145)
[2018-01-06 07:38] LABS: Alanine Aminotransferase 23 U/L (10-53); Mean Corpuscular HGB Conc 29.8 % (32.0-36.0)
[2018-01-06 07:40] LABS: Alkaline Phosphatase 72 U/L (45-117); Total Protein 6.9 g/dL (6.4-8.2)
[2018-01-06] MEDS: Furosemide 20 MG Tablet PO SCH (08:52)
[2018-01-06] MEDS: Polyethylene Glycol 3350 17 GM Packet PO SCH (08:52)
[2018-01-06] MEDS: Ferrous Sulfate 325 MG Tablet PO SCH (08:52)
--- NOTE | 2018-01-06 08:55 | P.PN ---
Subjective Interval history: Follow-up for rectal bleeding, anemia. Patient reports feeling very lightheaded and short of breath today. States she was placed on oxygen this morning which helped her breathing. Denies any chest pain. She reports significant dyspnea on exertion. She reports a mild headache, no nausea/ vomiting or photophobia. She has not had a bowel movement. She continues to remain concerned about her GI bleeding as both of her parents had colon cancer. She has no other medical complaints at this time. Physical Exam Vital signs: Vital Signs 01/05/18 09:47 01/05/18 12:00 01/05/18 16:00 Temperature 97.0 F L 98.2 F Pulse Rate 90 94 H 92 H Respiratory Rate 18 18 Blood Pressure 131/69 113/56 L Pulse Oximetry 95 96 01/05/18 20:00 01/06/18 01:00 Temperature 98.9 F 98.3 F Pulse Rate 98 H 102 H Respiratory Rate 18 20 Blood Pressure 134/70 124/60 Pulse Oximetry 92 L 98 Intake & Output 01/05/18 01/06/18 01/06/18 18:59 06:59 18:59 Intake Total 640 / 640 Balance 640 / 640 Weight 176.901 kg Intake: Oral 640 / 640 Other: # Voids 2 3 Date of Last Bowel Movement 01/04/18 01/04/18 # Bowel Movements 0 Weight On Admission 176.901 kg Narrative: GENERAL: Well-nourished, well-developed obese middle-age female patient in [facility]. SKIN: Warm and dry. No rash. HEENT: Normocephalic. Atraumatic. Pupils equal and round. Mucous membranes pink and moist. CARDIOVASCULAR: Regular rate and rhythm. No murmur appreciated. RESPIRATORY: No accessory muscle use. Clear to auscultation. Breath sounds equal bilaterally. GASTROINTESTINAL: Abdomen soft, non-tender, nondistended. Normoactive bowel sounds x4. MUSCULOSKELETAL: No obvious deformities. Extremities without clubbing, cyanosis , or edema. NEUROLOGICAL: Awake and alert. No obvious cranial nerve deficits. Motor grossly within normal limits. Moving all extremities spontaneously. Normal speech. PSYCHIATRIC: Appropriate mood and affect; insight and judgment normal. - Urinary Catheter Management Straight Cath placed during this visit: yes Reason for continuing: Not indwelling catheter Insertion date: 01/04/18 Insertion time: 23:02 Results - Labs CBC & Chem 7: 0821/18 06:25 01/06/18 06:25 Laboratory Results - last 24 hr 01/05/18 01/05/18 01/05/18 11:30 11:30 15:37 WBC RBC Hgb 8.6 L Hct 28.8 L MCV MCH MCHC RDW Plt Count MPV Neut % (Auto) Lymph % (Auto) [place] % (Auto) Eos % (Auto) Baso % (Auto) Neut # (Auto) Lymph # (Auto) [place] # (Auto) Eos # (Auto) Baso # (Auto) WBC Differential Differential Comment Sodium Potassium Chloride Carbon Dioxide Anion Gap BUN Creatinine Estimated GFR Random Glucose Calcium Iron 32 L Cancelled TIBC 385 Cancelled Iron & TIBC Cancelled % Saturation 8.3 L Cancelled Total Bilirubin AST ALT Alkaline Phosphatase Total Creatine Kinase 39 Troponin I Less than 0.02 L Total Protein Albumin 01/06/18 01/06/18 06:25 06:25 WBC 6.1 RBC 3.87 L Hgb 8.1 L Hct 27.1 L MCV 70.1 L MCH 20.9 L MCHC 29.8 L RDW 24.2 H Plt Count 349 MPV 8.7 Neut % (Auto) 69.9 Lymph % (Auto) 16.4 [place] % (Auto) 9.3 H Eos % (Auto) 3.7 Baso % (Auto) 0.7 Neut # (Auto) 4.2 Lymph # (Auto) 1.0 [place] # (Auto) 0.6 Eos # (Auto) 0.2 Baso # (Auto) 0.0 WBC Differential . Differential Comment Auto diff final Sodium 138 Potassium 3.6 Chloride 99 Carbon Dioxide 28.8 Anion Gap 10 BUN 8 Creatinine 0.62 Estimated GFR Greater than 89 Random Glucose 130 H Calcium 8.2 L Iron TIBC Iron & TIBC % Saturation Total Bilirubin 0.4 AST 21 ALT 23 Alkaline Phosphatase 72 Total Creatine Kinase Troponin I Total Protein 6.9 D Albumin 2.6 L Microbiology 01/04/18 23:05 Clean Catch Urine Urine Culture - Preliminary Results Pending - Imaging Impressions Abdomen/Pelvis CT 01/05/18 00:00 CONCLUSION: 1. No acute findings in the abdomen and pelvis. 2. Hepatosplenomegaly. 3. Limited quality examination due to patient's body habitus. Pelvis MRI 01/05/18 00:00 CONCLUSION: 1. Endometrium is abnormally thickened measuring up to 2.1 cm. As described above, there is a variant anatomy of the uterus likely representing an arcuate configuration with the right uterine horn having a somewhat thicker appearance than the left. However, no focal endometrial abnormality is identified. 2. No other significant abnormality is identified in the pelvis. Assessment and Plan - Plan 53-year-old female with history of anemia, CAD, PAD, presents with fever, general malaise, and abdominal pain with rectal bleeding and abnormal vaginal bleeding. She was recently hospitalized for severe anemia requiring transfusion. Colonoscopy done at that time was incomplete -scope was advanced only to hepatic flexure; polyps found-tubular adenomas. Pelvic ultrasound was done on 11/27/17 which found endometrium measuring 8 mm. Lower GI bleed/abnormal polyp/abdominal pain: Acute. Hemoccult positive in the ED. 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 -Consult obgyn, recommends outpatient f/up with Dr. Braun for further evaluation and likely endometrial biopsy Fever: acute. Patient febrile on arrival to the emergency department; now afebrile -Chest x-ray without signs of acute cardiopulmonary disease; CT pulmonary angiogram negative -UA not suggestive of UTI, urine culture pending -No leukocytosis -Blood cultures with 1/4 staph epidermidis (possible contaminant), repeat cultures ordered CAD: chronic. No current complaints of chest pain. -Holding home aspirin secondary to GI bleed -serial troponins negative/EKG without signs of ischemia -continue home meds DVT prophylaxis: SCDs; avoid chemical prophylaxis due to bleed Discharge Planning: Discharge pending blood transfusion, further clinical improvement, and clearance from GI.
[2018-01-06] MEDS ORDERED: Sodium Chlor 0.9% Inj 250 ML IV.SIG SCH (10:00)
--- NOTE | 2018-01-06 15:19 | P.PNGI ---
Subjective Interval history: Patient is resting in the bed with some lower abdominal pain which seems to wax and wane Denies any current nausea or vomiting Morbid obesity, current hemoglobin 8.1 <Yulia Salazar - Last Filed: 01/06/18 15:19> Physical Exam Vital signs: Vital Signs 01/05/18 16:00 01/05/18 20:00 01/06/18 01:00 Temperature 98.2 F 98.9 F 98.3 F Pulse Rate 92 H 98 H 102 H Respiratory Rate 18 18 20 Blood Pressure 113/56 L 134/70 124/60 Pulse Oximetry 96 92 L 98 01/06/18 08:00 01/06/18 11:03 Temperature 97.6 F 98.2 F Pulse Rate 77 79 Respiratory Rate 14 16 Blood Pressure 109/66 114/64 Pulse Oximetry 98 99 Intake & Output 01/05/18 01/06/18 01/06/18 18:59 06:59 18:59 Intake Total 640 / 640 400 / 400 Balance 640 / 640 400 / 400 Weight 176.901 kg Intake: Oral 640 / 640 Intake (Blood Product) Amt 400 / 400 Rbc As-3 Leukoreduced Unit 400 / 400 [id number] Other: # Voids 2 3 Date of Last Bowel Movement 01/04/18 01/04/18 # Bowel Movements 0 Weight On Admission 176.901 kg - Constitutional no acute distress (At rest), morbidly obese - Routine HEENT Exam Head: Present: normocephalic ENT: Present: mucous membranes moist - Routine Neck Exam Present: supple (Obese) - Routine Respiratory Exam Present: accessory muscle use (Diminished breath sounds but no obvious rhonchi or wheezing) - Routine Cardiovascular Exam Present: S1, S2 (Distant) - Routine Abdominal Exam Present: soft, normoactive bowel sounds (Round, obese, no obvious distention) - Routine Extremities Exam Present: edema (Mild lower extremity) - Routine Neurological Exam Present: alert (Awake answer simple questions) - Urinary Catheter Management Straight Cath placed during this visit: yes Reason for continuing: Not indwelling catheter Insertion date: 01/04/18 Insertion time: 23:02 <Yulia Salazar - Last Filed: 01/06/18 15:19> Vital signs: Vital Signs 01/06/18 01:00 01/06/18 08:00 01/06/18 11:03 Temperature 98.3 F 97.6 F 98.2 F Pulse Rate 102 H 77 79 Respiratory Rate 20 14 16 Blood Pressure 124/60 109/66 114/64 Pulse Oximetry 98 98 99 01/06/18 17:34 01/06/18 20:00 Temperature 98.1 F 98.5 F Pulse Rate 87 83 Respiratory Rate 18 20 Blood Pressure 132/62 131/55 L Pulse Oximetry 100 Intake & Output 01/06/18 01/06/18 01/07/18 06:59 18:59 06:59 Intake Total 880 / 880 250 / 250 Output Total 500 / 500 Balance 380 / 380 250 / 250 Weight 173.9 kg Intake: IV 250 / 250 NS Inj 250 ML @ 15 mls/hr IV. 250 / 250 SIG ONCE OZZY Rx#:[id number] Oral 480 / 480 Intake (Blood Product) Amt 400 / 400 Rbc As-3 Leukoreduced Unit 400 / 400 [id number] Output: Urine 500 / 500 Other: # Voids 3 Date of Last Bowel Movement 01/04/18 01/04/18 - Urinary Catheter Management Straight Cath placed during this visit: no <Pedro Collins E - Last Filed: 01/07/18 00:21> Results - Labs CBC & Chem 7: 01/06/18 06:25 01/06/18 06:25 Laboratory Results - last 24 hr 01/05/18 01/06/18 01/06/18 15:37 06:25 06:25 WBC 6.1 RBC 3.87 L Hgb 8.6 L 8.1 L Hct 28.8 L 27.1 L MCV 70.1 L MCH 20.9 L MCHC 29.8 L RDW 24.2 H Plt Count 349 MPV 8.7 Neut % (Auto) 69.9 Lymph % (Auto) 16.4 Sutter % (Auto) 9.3 H Eos % (Auto) 3.7 Baso % (Auto) 0.7 Neut # (Auto) 4.2 Lymph # (Auto) 1.0 Sutter # (Auto) 0.6 Eos # (Auto) 0.2 Baso # (Auto) 0.0 WBC Differential . Differential Comment Auto diff final Sodium 138 Potassium 3.6 Chloride 99 Carbon Dioxide 28.8 Anion Gap 10 BUN 8 Creatinine 0.62 Estimated GFR Greater than 89 Random Glucose 130 H Calcium 8.2 L Total Bilirubin 0.4 AST 21 ALT 23 Alkaline Phosphatase 72 Total Protein 6.9 D Albumin 2.6 L MTS Gel Crossmatch 01/06/18 09:01 WBC RBC Hgb Hct MCV MCH MCHC RDW Plt Count MPV Neut % (Auto) Lymph % (Auto) Sutter % (Auto) Eos % (Auto) Baso % (Auto) Neut # (Auto) Lymph # (Auto) Sutter # (Auto) Eos # (Auto) Baso # (Auto) WBC Differential Differential Comment Sodium Potassium Chloride Carbon Dioxide Anion Gap BUN Creatinine Estimated GFR Random Glucose Calcium Total Bilirubin AST ALT Alkaline Phosphatase Total Protein Albumin MTS Gel Crossmatch See Detail Microbiology 01/05/18 01:50 Blood - Peripheral Aerobic Blood Culture - Preliminary No growth in 1 day 01/05/18 01:50 Blood - Peripheral Anaerobic Blood Culture - Preliminary Staphylococcus epidermidis 01/04/18 23:05 Clean Catch Urine Urine Culture - Final No growth in 48 hours 01/05/18 01:55 Blood - Peripheral Aerobic Blood Culture - Preliminary No growth in 1 day 01/05/18 01:55 Blood - Peripheral Anaerobic Blood Culture - Preliminary No growth in 1 day - Imaging Impressions Abdomen/Pelvis CT 01/05/18 00:00 CONCLUSION: 1. No acute findings in the abdomen and pelvis. 2. Hepatosplenomegaly. 3. Limited quality examination due to patient's body habitus. Pelvis MRI 01/05/18 00:00 CONCLUSION: 1. Endometrium is abnormally thickened measuring up to 2.1 cm. As described above, there is a variant anatomy of the uterus likely representing an arcuate configuration with the right uterine horn having a somewhat thicker appearance than the left. However, no focal endometrial abnormality is identified. 2. No other significant abnormality is identified in the pelvis. <Yulia Salazar - Last Filed: 01/06/18 15:19> - Labs CBC & Chem 7: 01/06/18 06:25 01/06/18 06:25 Laboratory Results - last 24 hr 01/06/18 01/06/18 01/06/18 06:25 06:25 09:01 WBC 6.1 RBC 3.87 L Hgb 8.1 L Hct 27.1 L MCV 70.1 L MCH 20.9 L MCHC 29.8 L RDW 24.2 H Plt Count 349 MPV 8.7 Neut % (Auto) 69.9 Lymph % (Auto) 16.4 Sutter % (Auto) 9.3 H Eos % (Auto) 3.7 Baso % (Auto) 0.7 Neut # (Auto) 4.2 Lymph # (Auto) 1.0 Sutter # (Auto) 0.6 Eos # (Auto) 0.2 Baso # (Auto) 0.0 WBC Differential . Differential Comment Auto diff final Sodium 138 Potassium 3.6 Chloride 99 Carbon Dioxide 28.8 Anion Gap 10 BUN 8 Creatinine 0.62 Estimated GFR Greater than 89 Random Glucose 130 H Calcium 8.2 L Total Bilirubin 0.4 AST 21 ALT 23 Alkaline Phosphatase 72 Total Protein 6.9 D Albumin 2.6 L MTS Gel Crossmatch See Detail Microbiology 01/05/18 01:50 Blood - Peripheral Aerobic Blood Culture - Preliminary No growth in 1 day 01/05/18 01:50 Blood - Peripheral Anaerobic Blood Culture - Preliminary Staphylococcus epidermidis 01/04/18 23:05 Clean Catch Urine Urine Culture - Final No growth in 48 hours 01/05/18 01:55 Blood - Peripheral Aerobic Blood Culture - Preliminary No growth in 1 day 01/05/18 01:55 Blood - Peripheral Anaerobic Blood Culture - Preliminary No growth in 1 day <Pedro Collins E - Last Filed: 01/07/18 00:21> Assessment and Plan - Plan Bright red rectal blood noted with defecation and straining History of constipation and acute constipation Heme positive stool in the ER Gastritis and gastric ulcerations, seen on EGD back in November. Patient admits to taking 325 aspirin every 6 hours for pain and is currently still taking baby aspirin twice a day for pain. Patient was recommended to maintain on PPI on discharge but no PPI has been taken. History of anemia currently being managed on ferrous sulfate history of polyps history of hemorrhoids. Both seen on colonoscopy which was performed twice back in November, questionable poor prep. History of polyps which were removed Generalized weakness and fatigue and fever of 102.3 noted this past p.m. on admission to the hospital patient is a 390 pound morbidly obese female who is in the [facility] facility back in November with previous GI workup. Patient had 2 colonoscopies one EGD back in November per Dr. Hager and Dr. Clements. Patient does have positive family history of colon cancer with mom and dad in their 60s. Current labs show hemoglobin decrease on admission from 9.3-8.3, positive for dyspepsia at least 3 times a week which is usually relieved with Tums. Aggregating factors are peanut butter, mustard, and red sauce. Note vaginal bleeding currently being evaluated along with endometrial thickness. [employer] consult is pending. CT scan of the abdomen is pending 01/06/2018 CT of the abdomen is unremarkable for any acute changes. Patient is resting in the bed appears fairly comfortable but when examined still complained of some generalized left and right lower abdominal pain. [facility] admission was recent recent EGD and colonoscopy and repeated colonoscopy while at [place] 2 weeks ago. Encourage patient again not to be taken any aspirin for her pain. Patient is now on PPI which she never begun taking after her last discharge. Appetite is returning and patient denies any nausea or vomiting. Continue PPI for now and monitor labs and give supportive care. Patient received 1 unit packed RBCs transfusion for hemoglobin that had decreased over a 24-hour period from 9.3-8.3. Last hemoglobin check was 8.1 will need to monitor for any further obvious bleeding. Patient did have a history of gastritis and gastric ulcerations a few weeks ago. Plan Diet per attending Monitor hemoglobin for any further changes. And transfuse as needed. Dependent on H&H may consider EGD Ferrous sulfate Anusol HC suppositories MiraLAX daily Zofran PPI Supportive care continue to monitor for now Patient was seen per myself and Dr. Collins, note was written on his behalf <Yulia Salazar M - Last Filed: 01/06/18 15:19> - Attending Attestation Patient seen and examined Agree with above Continue with current supportive care Monitor labs <Pedro Collins - Last Filed: 01/07/18 00:21>
--- NOTE | 2018-01-06 16:58 | ECG ---
Date Performed: 01/04/2018 Time Performed: 20:58:32 PTAGE: 53 years EKG: SINUS TACHYCARDIA MODERATE VOLTAGE CRITERIA FOR LVH, CONSIDER NORMAL VARIANT Compared to pr evious tracing, sinus rate is faster ABNORMAL RHYTHM ECG PREVIOUS TRACING : 11/30/2017 07.45 DOCTOR: Natan Cantor Interpretating Date/Time 01/06/2018 16:58:14
[2018-01-07] MEDS: Pantoprazole Inj 40 MG Vial IV.PUSH SCH ×2 (01:15→14:00)
[2018-01-07] MEDS: Polyethylene Glycol 3350 17 GM Packet PO SCH (09:16)
[2018-01-07] MEDS: Furosemide 20 MG Tablet PO SCH (09:16)
[2018-01-07] MEDS: Ferrous Sulfate 325 MG Tablet PO SCH (09:16)
--- NOTE | 2018-01-07 09:19 | P.PNIM ---
Subjective Interval history: f/u; anemia in no acute distress. but says that she feels dizzy. has mild generalized abdominal pain. no nausea or vomiting. Physical Exam Vital signs: Vital Signs 01/06/18 11:03 01/06/18 17:34 01/06/18 20:00 Temperature 98.2 F 98.1 F 98.5 F Pulse Rate 79 87 89 Respiratory Rate 16 18 20 Blood Pressure 114/64 132/62 131/55 L Pulse Oximetry 99 100 01/07/18 00:00 01/07/18 04:00 01/07/18 08:22 Temperature 98.2 F 97.4 F L Pulse Rate 81 86 Respiratory Rate 18 18 Blood Pressure 156/66 H 138/68 Pulse Oximetry 97 98 96 Intake & Output 01/06/18 01/07/18 01/07/18 18:59 06:59 18:59 Intake Total 880 / 880 250 / 250 Output Total 500 / 500 Balance 380 / 380 250 / 250 Weight 173.9 kg 89.3 kg Intake: IV 250 / 250 NS Inj 250 ML @ 15 mls/hr IV. 250 / 250 SIG ONCE OZZY Rx#:[id number] Oral 480 / 480 Intake (Blood Product) Amt 400 / 400 Rbc As-3 Leukoreduced Unit 400 / 400 [id number] Output: Urine 500 / 500 Other: Date of Last Bowel Movement 01/04/18 01/04/18 - Constitutional no acute distress - Routine Respiratory Exam Present: CTA bilaterally - Routine Cardiovascular Exam Present: RRR - Routine Abdominal Exam Present: soft (minimal to mild generalized tenderness.) - Routine Extremities Exam Comments: mild bilateral pedal edema. - Routine Neurological Exam Present: alert, oriented X3 - Urinary Catheter Management Straight Cath placed during this visit: yes Reason for continuing: Not indwelling catheter Insertion date: 01/04/18 Insertion time: 23:02 Results - Labs CBC & Chem 7: 01/06/18 06:25 01/06/18 06:25 Laboratory Results - last 24 hr 01/06/18 09:01 MTS Gel Crossmatch See Detail Microbiology 01/05/18 01:50 Blood - Peripheral Aerobic Blood Culture - Preliminary No growth in 1 day 01/05/18 01:50 Blood - Peripheral Anaerobic Blood Culture - Preliminary Staphylococcus epidermidis 01/04/18 23:05 Clean Catch Urine Urine Culture - Final No growth in 48 hours 01/05/18 01:55 Blood - Peripheral Aerobic Blood Culture - Preliminary No growth in 1 day 01/05/18 01:55 Blood - Peripheral Anaerobic Blood Culture - Preliminary No growth in 1 day Assessment and Plan - Plan Lower GI bleed/abnormal polyp/abdominal pain: Acute. Hemoccult positive in the ED. -CT abdomen/pelvis reviewed, no acute findings -Monitor H&H; current trend 9.3 --> 8.3 --> 8.6 --> 8.1 -Continue IV Protonix -Gastroenterology consulted, appreciate recommendations -will continue to monitor H/H; if further drop might need repeated endoscopy. 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 -Consult obgyn, recommends outpatient f/up with Dr. Braun for further evaluation and likely endometrial biopsy Fever: acute. Patient febrile on arrival to the emergency department; now afebrile -Chest x-ray without signs of acute cardiopulmonary disease; CT pulmonary angiogram negative -UA not suggestive of UTI, urine culture pending -No leukocytosis -Blood cultures with 1/4 staph epidermidis (possible contaminant), repeat cultures pending. CAD: chronic. No current complaints of chest pain. -Holding home aspirin secondary to GI bleed -serial troponins negative/EKG without signs of ischemia -continue home meds Discharge Planning: when stable and cleared by GI.
[2018-01-07 09:36] LABS: Hematocrit 29.8 % (35.0-46.0); Hemoglobin 9.2 gm/dL (11.6-15.3); Mean Corpuscular Hemoglobin 21.2 pg (27.0-34.0); Mean Corpuscular Volume 69.1 fL (80.0-100.0); Mean Platelet Volume 8.8 fL (7.0-11.0); Platelet Count 345 th/mm3 (150-450); Red Blood Count 4.32 mil/mm3 (4.00-5.30); Red Cell Distribution Width 24.8 % (11.6-17.2); White Blood Count 6.6 th/mm3 (4.0-11.0)
[2018-01-07 09:39] LABS: Mean Corpuscular HGB Conc 30.7 % (32.0-36.0)
--- NOTE | 2018-01-07 14:56 | P.PNGI ---
Subjective Interval history: Patient is resting in the bed states she is able to eat solid food BM 1 within the past 24 hours Patient still states she is having lower abdominal pain and pressure which could be related to her [employer] issues i.e. endometriosis. Current hemoglobin 9.2 <Yulia Salazar - Last Filed: 01/07/18 14:50> Physical Exam Vital signs: Vital Signs 01/06/18 17:34 01/06/18 20:00 01/07/18 00:00 Temperature 98.1 F 98.5 F 98.2 F Pulse Rate 87 89 81 Respiratory Rate 18 20 18 Blood Pressure 132/62 131/55 L 156/66 H Pulse Oximetry 100 97 01/07/18 04:00 01/07/18 08:00 01/07/18 08:22 Temperature 97.4 F L 97.7 F Pulse Rate 86 87 Respiratory Rate 18 20 Blood Pressure 138/68 151/66 H Pulse Oximetry 98 99 96 Intake & Output 01/06/18 01/07/18 01/07/18 18:59 06:59 18:59 Intake Total 880 / 880 250 / 250 Output Total 500 / 500 Balance 380 / 380 250 / 250 Weight 173.9 kg 89.3 kg Intake: IV 250 / 250 NS Inj 250 ML @ 15 mls/hr IV. 250 / 250 SIG ONCE OZZY Rx#:[id number] Oral 480 / 480 Intake (Blood Product) Amt 400 / 400 Rbc As-3 Leukoreduced Unit 400 / 400 [id number] Output: Urine 500 / 500 Other: Date of Last Bowel Movement 01/04/18 01/04/18 - Constitutional no acute distress, morbidly obese - Routine HEENT Exam Head: Present: normocephalic ENT: Present: mucous membranes moist - Routine Neck Exam Present: supple - Routine Respiratory Exam Present: accessory muscle use (Obese no obvious shortness of breath respirations even and unlabored at rest but low volumes) - Routine Cardiovascular Exam Present: S1, S2 - Routine Abdominal Exam Present: soft, normoactive bowel sounds, tenderness (Generalized discomfort and notes some sharp twinges off and on, no nausea no vomiting) - Urinary Catheter Management Straight Cath placed during this visit: yes Reason for continuing: Not indwelling catheter Insertion date: 01/04/18 Insertion time: 23:02 <Yulia Salazar - Last Filed: 01/07/18 14:50> Vital signs: Vital Signs 01/06/18 20:00 01/07/18 00:00 01/07/18 04:00 Temperature 98.5 F 98.2 F 97.4 F L Pulse Rate 89 81 86 Respiratory Rate 20 18 18 Blood Pressure 131/55 L 156/66 H 138/68 Pulse Oximetry 100 97 98 01/07/18 08:00 01/07/18 08:22 01/07/18 12:00 Temperature 97.7 F 97.8 F Pulse Rate 87 84 Respiratory Rate 20 20 Blood Pressure 151/66 H 152/62 H Pulse Oximetry 99 96 100 01/07/18 17:52 Temperature Pulse Rate Respiratory Rate Blood Pressure Pulse Oximetry 100 Intake & Output 01/06/18 01/07/18 01/07/18 18:59 06:59 18:59 Intake Total 880 / 880 250 / 250 Output Total 500 / 500 Balance 380 / 380 250 / 250 Weight 173.9 kg 89.3 kg Intake: IV 250 / 250 NS Inj 250 ML @ 15 mls/hr IV. 250 / 250 SIG ONCE OZZY Rx#:[id number] Oral 480 / 480 Intake (Blood Product) Amt 400 / 400 Rbc As-3 Leukoreduced Unit 400 / 400 [id number] Output: Urine 500 / 500 Other: Date of Last Bowel Movement 01/04/18 01/04/18 01/07/18 - Urinary Catheter Management Straight Cath placed during this visit: no <Pedro Collins - Last Filed: 01/07/18 18:12> Results - Labs CBC & Chem 7: 01/07/18 09:01 01/06/18 06:25 Laboratory Results - last 24 hr 01/07/18 09:01 WBC 6.6 RBC 4.32 Hgb 9.2 L Hct 29.8 L MCV 69.1 L MCH 21.2 L MCHC 30.7 L RDW 24.8 H Plt Count 345 MPV 8.8 Microbiology 01/05/18 01:55 Blood - Peripheral Aerobic Blood Culture - Preliminary No growth in 2 days 01/05/18 01:55 Blood - Peripheral Anaerobic Blood Culture - Preliminary No growth in 2 days 01/05/18 01:50 Blood - Peripheral Aerobic Blood Culture - Preliminary No growth in 2 days 01/05/18 01:50 Blood - Peripheral Anaerobic Blood Culture - Preliminary Staphylococcus epidermidis 01/04/18 23:05 Clean Catch Urine Urine Culture - Final No growth in 48 hours <Yulia Salazar - Last Filed: 01/07/18 14:50> - Labs CBC & Chem 7: 01/07/18 09:01 01/06/18 06:25 Laboratory Results - last 24 hr 01/07/18 09:01 WBC 6.6 RBC 4.32 Hgb 9.2 L Hct 29.8 L MCV 69.1 L MCH 21.2 L MCHC 30.7 L RDW 24.8 H Plt Count 345 MPV 8.8 Microbiology 01/05/18 01:55 Blood - Peripheral Aerobic Blood Culture - Preliminary No growth in 2 days 01/05/18 01:55 Blood - Peripheral Anaerobic Blood Culture - Preliminary No growth in 2 days 01/05/18 01:50 Blood - Peripheral Aerobic Blood Culture - Preliminary No growth in 2 days 01/05/18 01:50 Blood - Peripheral Anaerobic Blood Culture - Preliminary Staphylococcus epidermidis <Pedro Collins - Last Filed: 01/07/18 18:12> Assessment and Plan - Plan Bright red rectal blood noted with defecation and straining History of constipation and acute constipation Heme positive stool in the ER Gastritis and gastric ulcerations, seen on EGD back in November. Patient admits to taking 325 aspirin every 6 hours for pain and is currently still taking baby aspirin twice a day for pain. Patient was recommended to maintain on PPI on discharge but no PPI has been taken. History of anemia currently being managed on ferrous sulfate history of polyps history of hemorrhoids. Both seen on colonoscopy which was performed twice back in November, questionable poor prep. History of polyps which were removed Generalized weakness and fatigue and fever of 102.3 noted this past p.m. on admission to the hospital patient is a 390 pound morbidly obese female who is in the [facility] facility back in November with previous GI workup. Patient had 2 colonoscopies one EGD back in November per Dr. Hager and Dr. Clements. Patient does have positive family history of colon cancer with mom and dad in their 60s. Current labs show hemoglobin decrease on admission from 9.3-8.3, positive for dyspepsia at least 3 times a week which is usually relieved with Tums. Aggregating factors are peanut butter, mustard, and red sauce. Note vaginal bleeding currently being evaluated along with endometrial thickness. [employer] consult is pending. CT scan of the abdomen is pending 01/06/2018 CT of the abdomen is unremarkable for any acute changes. Patient is resting in the bed appears fairly comfortable but when examined still complained of some generalized left and right lower abdominal pain. [facility] admission was recent recent EGD and colonoscopy and repeated colonoscopy while at [facility] [place] 2 weeks ago. Encourage patient again not to be taken any aspirin for her pain. Patient is now on PPI which she never begun taking after her last discharge. Appetite is returning and patient denies any nausea or vomiting. Continue PPI for now and monitor labs and give supportive care. Patient received 1 unit packed RBCs transfusion for hemoglobin that had decreased over a 24-hour period from 9.3-8.3. Last hemoglobin check was 8.1 will need to monitor for any further obvious bleeding. Patient did have a history of gastritis and gastric ulcerations a few weeks ago. 01/07/2018, patient seems to be feeling better with her appetite improving eaten solid soft foods as well as no nausea no vomiting. Patient has not mentioned any further rectal discomfort Anusol HC suppositories continue for now as well as her iron supplements. Patient still notes some lower abdominal discomfort and pressure sensation off and on especially with cough patient does have some abnormal uterine bleeding which could be causing some of this pain and will be followed on outpatient basis per OB for possible endometrial biopsy. This could be the cause of her abdominal discomfort. BM 1 today unaware if there is any blood, 1 BM in the past 24 hours and is still taken MiraLAX daily will continue MiraLAX for now since it seems to be effective. GI will monitor as needed but patient appears fairly stable at this point from a GI perspective. Plan Diet, soft foods as tolerated Ferrous sulfate Anusol HC suppositories as needed for now MiraLAX daily Zofran PPI Supportive care Patient was seen per myself and Dr. Collins, note was written on his behalf <Yulia Salazar - Last Filed: 01/07/18 14:50> - Attending Attestation Patient seen and examined Agree with above Continue with current supportive care Monitor labs No further rectal bleeding Appears to be doing better overall Not much to add from a GI perspective we will sign off <Dennis,Pedro E - Last Filed: 01/07/18 18:12>
[2018-01-08] MEDS: Pantoprazole Inj 40 MG Vial IV.PUSH SCH ×2 (00:39→13:47)
[2018-01-08] MEDS: Ferrous Sulfate 325 MG Tablet PO SCH (09:29)
[2018-01-08] MEDS: Furosemide 20 MG Tablet PO SCH (09:29)
[2018-01-08] MEDS: Polyethylene Glycol 3350 17 GM Packet PO SCH (09:30)
--- NOTE | 2018-01-08 11:43 | P.PNIM ---
Subjective Interval history: in no acute distress. has mild generalized abdominal pain. no nausea/vomiting. had some rectal bleed this morning. complaining of difficulty swallowing. Physical Exam Vital signs: Vital Signs 01/07/18 12:00 01/07/18 16:00 01/07/18 17:52 Temperature 97.8 F Pulse Rate 80 101 H Respiratory Rate 20 Blood Pressure 152/62 H Pulse Oximetry 100 100 01/07/18 18:00 01/07/18 19:53 01/07/18 20:15 Temperature 97.8 F 98.5 F Pulse Rate 76 87 101 H Respiratory Rate 20 20 Blood Pressure 145/64 H 150/77 H Pulse Oximetry 100 98 01/08/18 00:00 01/08/18 04:00 01/08/18 08:00 Temperature 97.8 F 97.7 F 97.7 F Pulse Rate 81 81 78 Respiratory Rate 18 20 18 Blood Pressure 152/72 H 148/70 H 131/75 Pulse Oximetry 98 98 99 Intake & Output 01/07/18 01/08/18 01/08/18 18:59 06:59 18:59 Intake Total 420 / 420 750 / 750 Output Total 200 / 200 Balance 420 / 420 550 / 550 Weight 174.7 kg Intake: Oral 420 / 420 750 / 750 Output: Urine 200 / 200 Other: # Voids 4 2 Date of Last Bowel Movement 01/07/18 01/07/18 # Bowel Movements 0 1 - Constitutional no acute distress - Routine Respiratory Exam Present: CTA bilaterally - Routine Cardiovascular Exam Present: RRR - Routine Abdominal Exam Present: soft - Routine Extremities Exam Comments: no pedal edema. - Routine Neurological Exam Present: alert, oriented X3 - Urinary Catheter Management Straight Cath placed during this visit: yes Reason for continuing: Not indwelling catheter Insertion date: 01/04/18 Insertion time: 23:02 Results - Labs CBC & Chem 7: 01/07/18 09:01 01/06/18 06:25 Microbiology 01/07/18 09:01 Blood - Peripheral Aerobic Blood Culture - Preliminary No growth in 1 day 01/07/18 09:01 Blood - Peripheral Anaerobic Blood Culture - Preliminary No growth in 1 day 01/05/18 01:55 Blood - Peripheral Aerobic Blood Culture - Preliminary No growth in 3 days 01/05/18 01:55 Blood - Peripheral Anaerobic Blood Culture - Preliminary No growth in 3 days 01/05/18 01:50 Blood - Peripheral Aerobic Blood Culture - Preliminary No growth in 3 days 01/05/18 01:50 Blood - Peripheral Anaerobic Blood Culture - Preliminary Staphylococcus epidermidis Assessment and Plan - Plan Lower GI bleed/abnormal polyp/abdominal pain/ difficult swallowing: Acute. Hemoccult positive in the ED. -CT abdomen/pelvis reviewed, no acute findings -Monitor H&H; current trend 9.3 --> 8.3 --> 8.6 --> 8.1 -Continue IV Protonix -Gastroenterology consulted, appreciate recommendations -will continue to monitor H/H; if further drop might need repeated endoscopy. -ST following. Symptomatic Anemia: patient with hx of severe anemia requiring transfusions in the past -Hgb dropped to 8.1, patient symptomatic with +SOB/MARTÍNEZ/lightheaded -Transfused 1u pRBC now 01/06 -Continue iron replacement -Monitor CBC Abnormal uterine bleeding: acute on chronic -MRI pelvis done 01/05/18 indicated endometrium measuring 2.1 cm; arcurate configuration; normal ovaries; incidental finding of a right pelvic kidney. -Consult obgyn, recommends outpatient f/up with Dr. Braun for further evaluation and likely endometrial biopsy Fever: acute. Patient febrile on arrival to the emergency department; now afebrile -Chest x-ray without signs of acute cardiopulmonary disease; CT pulmonary angiogram negative -UA not suggestive of UTI, urine culture pending -No leukocytosis -Blood cultures with 1/4 staph epidermidis (possible contaminant), repeat cultures pending. CAD: chronic. No current complaints of chest pain. -Holding home aspirin secondary to GI bleed -serial troponins negative/EKG without signs of ischemia -continue home meds Discharge Planning: when stable - awaiting CBC/ST f/u; might need GI reevaluation.
[2018-01-08 11:46] LABS: Hemoglobin 9.4 gm/dL (11.6-15.3); Mean Corpuscular Hemoglobin 21.2 pg (27.0-34.0); Mean Platelet Volume 8.6 fL (7.0-11.0); Platelet Count 366 th/mm3 (150-450); Red Blood Count 4.43 mil/mm3 (4.00-5.30); Red Cell Distribution Width 23.8 % (11.6-17.2); White Blood Count 7.1 th/mm3 (4.0-11.0)
[2018-01-08 11:50] LABS: Mean Corpuscular HGB Conc 30.3 % (32.0-36.0)
[2018-01-09] MEDS: Pantoprazole Inj 40 MG Vial IV.PUSH SCH ×2 (00:30→13:58)
[2018-01-09] MEDS: Ferrous Sulfate 325 MG Tablet PO SCH (09:51)
[2018-01-09] MEDS: Furosemide 20 MG Tablet PO SCH (09:51)
--- NOTE | 2018-01-09 09:51 | P.PNIM ---
Subjective Interval history: in no acute distress. no further rectal bleed since yesterday morning. doing ok with ST. d/w the speech therapy at the bedside. Physical Exam Vital signs: Vital Signs 01/08/18 12:00 01/08/18 15:50 01/08/18 16:00 Temperature 98.1 F 98.0 F Pulse Rate 84 82 82 Respiratory Rate 18 18 Blood Pressure 146/68 H 149/82 H Pulse Oximetry 97 94 L 01/08/18 20:00 01/09/18 00:00 01/09/18 04:00 Temperature 98.3 F 98.8 F 98.0 F Pulse Rate 77 124 H 80 Respiratory Rate 22 21 21 Blood Pressure 158/72 H 141/71 H 137/63 Pulse Oximetry 100 94 L 95 01/09/18 08:00 Temperature 98.6 F Pulse Rate 80 Respiratory Rate 17 Blood Pressure 172/78 H Pulse Oximetry 98 Intake & Output 01/08/18 01/09/18 01/09/18 18:59 06:59 18:59 Intake Total 960 / 960 Balance 960 / 960 Weight 175.1 kg Intake: Oral 960 / 960 Other: # Voids 5 Date of Last Bowel Movement 01/07/18 # Bowel Movements 2 - Constitutional no acute distress - Routine Respiratory Exam Present: CTA bilaterally - Routine Cardiovascular Exam Present: RRR - Routine Abdominal Exam Present: soft - Routine Extremities Exam Comments: mild pedal edema. - Routine Neurological Exam Present: alert, oriented X3 - Urinary Catheter Management Straight Cath placed during this visit: yes Reason for continuing: Not indwelling catheter Insertion date: 01/04/18 Insertion time: 23:02 Results - Labs CBC & Chem 7: 01/08/18 11:05 01/06/18 06:25 Laboratory Results - last 24 hr 01/08/18 11:05 WBC 7.1 RBC 4.43 Hgb 9.4 L Hct 31.0 L MCV 70.0 L MCH 21.2 L MCHC 30.3 L RDW 23.8 H Plt Count 366 MPV 8.6 Microbiology 01/05/18 01:50 Blood - Peripheral Aerobic Blood Culture - Preliminary No growth in 3 days 01/05/18 01:50 Blood - Peripheral Anaerobic Blood Culture - Final Staphylococcus epidermidis 01/07/18 09:01 Blood - Peripheral Aerobic Blood Culture - Preliminary No growth in 1 day 01/07/18 09:01 Blood - Peripheral Anaerobic Blood Culture - Preliminary No growth in 1 day 01/05/18 01:55 Blood - Peripheral Aerobic Blood Culture - Preliminary No growth in 3 days 01/05/18 01:55 Blood - Peripheral Anaerobic Blood Culture - Preliminary No growth in 3 days - Procedures none. Assessment and Plan - Plan Lower GI bleed/abnormal polyp/abdominal pain/ difficult swallowing: Acute. Hemoccult positive in the ED. -CT abdomen/pelvis reviewed, no acute findings -Monitor H&H; current trend 9.3 --> 8.3 --> 8.6 --> 8.1 -Continue IV Protonix -Gastroenterology consulted, appreciate recommendations previously d/w and cleared for discharge. -ST following; recommended barium swallow. Symptomatic Anemia: patient with hx of severe anemia requiring transfusions in the past -Transfused 1u pRBC now 01/06 -Continue iron replacement -H/H stable. 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 -Consulted obgyn, recommends outpatient f/up with Dr. Braun for further evaluation and likely endometrial biopsy Fever: acute. Patient febrile on arrival to the emergency department; now afebrile -Chest x-ray without signs of acute cardiopulmonary disease; CT pulmonary angiogram negative -UA not suggestive of UTI, urine culture pending -No leukocytosis -Blood cultures with 1/4 staph epidermidis (possible contaminant), repeated cultures negative. CAD: chronic. No current complaints of chest pain. -serial troponins negative/EKG without signs of ischemia -continue home meds Discharge Planning: dc home today- pending swallow evaluation. f/u; pcp and GI.
[2018-01-09] MEDS: Polyethylene Glycol 3350 17 GM Packet PO SCH (09:52)
[2018-01-09 10:48] VITALS: BP 135/65; RESP 18; TEMP 97.8; O2SAT 99
--- NOTE | 2018-01-09 11:20 | FL ---
EXAM DATE: 01/09/2018 11:11 AM EDT AGE/SEX: 53 years / Female INDICATIONS: Dysphagia. CLINICAL DATA: This is the patient's initial encounter. Patient reports that signs and symptoms have been present for > 1 year and indicates a pain score of 4/10. MEDICAL/SURGICAL HISTORY: . problems swallowing for 2 years and her voice has changed. None. COMPARISON: No prior exams available for comparison. FLUORO TIME: 0.6 IMAGE COUNT: 0 FINDINGS: A modified barium swallow was performed with speech pathology. Patient was given a variety of liquids to swallow. CONCLUSION: For a full detailed report, see report by the speech pathologist Electronically signed by: Kristel Epstein MD 01/09/2018 11:18 AM EDT
--- NOTE | 2018-01-09 13:21 | P.DS ---
Date of admission: 01/05/18 09:12 Primary care physician: No Primary Care Physician Brief History from admission: Patient is 53-year-old morbidly obese white female G0 who is a having abnormal postmenopausal bleeding intermittently and sporadically over the last 4 years she states that she had periods are regular abdomen age 48 and then nothing for about a year and over the last 4 years she is just had once every 2- 6 months will have a bleeding episode that is's passing small clots. She has a chronic anemia and is in the hospital with a GI bleed workup. She has no pelvic pain to speak of DS: Medications - Discharge Medications Prescriptions: hydrocortisone [Anusol-HC] 1 applicatio OH TID #1 g pantoprazole [Protonix] 40 mg PO DAILY 14 Days each DS: Summary Hospital Course: patient was admitted with rectal bleed. GI consulted who recommended no GI procedures at this time. H/H remained stable and rectal bleed resolved. she was seen by poke in for abnormal uterine bleeding who will follow her up as outpatient. she was also evaluated by speech therapy with modified barium swallow and recommended regular solids with thin liquids. - Time Spent with Patient Total time spent providing and/or coordinating discharge services: Less than 30 minutes - Quality: VTE Deep Vein Thrombosis/Pulmonary Embolism Present on Admission: No Exam Vital signs: Vital Signs 01/08/18 15:50 01/08/18 16:00 01/08/18 20:00 Temperature 98.0 F 98.3 F Pulse Rate 82 82 77 Respiratory Rate 18 22 Blood Pressure 149/82 H 158/72 H Pulse Oximetry 94 L 100 01/09/18 00:00 01/09/18 04:00 01/09/18 08:00 Temperature 98.8 F 98.0 F 98.6 F Pulse Rate 124 H 80 80 Respiratory Rate 21 21 17 Blood Pressure 141/71 H 137/63 172/78 H Pulse Oximetry 94 L 95 98 01/09/18 09:00 Temperature 97.8 F Pulse Rate 77 Respiratory Rate 18 Blood Pressure 135/65 Pulse Oximetry 99 Intake & Output 01/08/18 01/09/18 01/09/18 18:59 06:59 18:59 Intake Total 960 / 960 Balance 960 / 960 Weight 175.1 kg Intake: Oral 960 / 960 Other: # Voids 5 Date of Last Bowel Movement 01/07/18 01/07/18 # Bowel Movements 2 - Constitutional no acute distress - Routine Respiratory Exam Present: CTA bilaterally - Routine Cardiovascular Exam Present: RRR - Routine Abdominal Exam Present: soft - Routine Extremities Exam Comments: mild bilateral pedal edema. - Routine Neurological Exam Present: alert, oriented X3 Results Procedures completed during hospitalization: none. Labs on day of discharge: Preliminary micro results at discharge 01/07/18 09:01 Aerobic Blood Culture - Preliminary Blood - Peripheral No growth in 2 days Anaerobic Blood Culture - Preliminary No growth in 2 days 01/05/18 01:55 Aerobic Blood Culture - Preliminary Blood - Peripheral No growth in 4 days Anaerobic Blood Culture - Preliminary No growth in 4 days 01/05/18 01:50 Aerobic Blood Culture - Preliminary Blood - Peripheral No growth in 4 days - Impressions ITS Impressions Chest CTA 01/04/18 21:06 CONCLUSION: 1. This study is negative for pulmonary embolism. Chest X-Ray 01/04/18 21:09 CONCLUSION: The lungs are clear. Cardiomegaly. Abdomen/Pelvis CT 01/05/18 00:00 CONCLUSION: 1. No acute findings in the abdomen and pelvis. 2. Hepatosplenomegaly. 3. Limited quality examination due to patient's body habitus. Pelvis MRI 01/05/18 00:00 CONCLUSION: 1. Endometrium is abnormally thickened measuring up to 2.1 cm. As described above, there is a variant anatomy of the uterus likely representing an arcuate configuration with the right uterine horn having a somewhat thicker appearance than the left. However, no focal endometrial abnormality is identified. 2. No other significant abnormality is identified in the pelvis. Videofluoroscopic Swallow 01/09/18 00:00 CONCLUSION: For a full detailed report, see report by the speech pathologist Discharge Plan - Discharge Disposition Patient Disposition: 01 Discharge Home - Discharge Condition Condition: Stable - Discharge Order Discharge Orders: Discharge Order (Routine); Ordered 01/09/18 Ordered By: Jamilah Emery - Physicians Team Primary Care Provider: Primary Care Callumi,Marsha Attending Provider: Jamilah Emery Other Providers: Pedro Collins MD ; Keegan Rodriguez MD
[2018-01-09 15:52] VITALS: PULSE 81
== END 2018-01-09 16:58 | disposition home or self-care (01) ==
LOC: NEPE 20:21 → NEDA 20:21 → NEPFCDU 01-05 02:15 → N04 01-06 16:16
PROVIDERS: ADMIT Internal Medicine; ATTEND Internal Medicine

== ENCOUNTER 2018-01-10 01:53 | Observation (INO) ==
[2018-01-10] MEDS ORDERED: Pantoprazole Inj 40 MG Vial IV.PUSH ONE (02:24)
--- NOTE | 2018-01-10 02:33 | ED ---
HPI General Chief Complaint: Chest Pain Stated Complaint: Chest pain Time Seen by Provider: 01/10/18 02:22 Source: patient Mode of arrival: ambulatory Limitations: no limitations History of Present Illness HPI narrative: 53-year-old female presents to the emergency department by private transportation for evaluation of chest pain/heaviness, lateral proximal right leg numbness, and right subscapular pain. According the patient she was discharged from the hospital 01/09/18 at 5 PM after being hospitalized for a GI bleed. Patient has history of chronic anemia pulmonary hypertension previous GI bleed peptic ulcer disease and chest pain. Patient states that she went to bed approximately 9:30 PM feeling well for her and then awakened at 11: 30 PM to go to the bathroom as she takes diuretics and noticed some numbness to the lateral aspect of her right lower extremity from her hip to her knee. Patient stated when she went to lay back down she felt numbness in both of her feet when trying to lay supine which resolved when she would sit upright or leaning upright and numbness in her feet and return if she tried to lay flat. Patient also had chest pain/heaviness and right subscapular pain. No abdominal pain, no right upper quadrant pain; patient has issues with respiratory insufficiency and history of primary hypertension but did not noticed increasing shortness of breath or pleuritic chest pain. Patient states she is very concerned about a blood clot to her leg as she is not allowed to take anticoagulants due to her recurrent GI bleeding and chronic anemia. Patient was transfused 1 unit of blood while in the hospital but last month hemoglobin was 4.7 received several units of blood reportedly. Patient states she has been in fair health as far she knows and has not seen a doctor since childhood until 1 month ago when she went to [facility] [place] with GI bleed. Patient denies any headache visual disturbance speech disturbance facial weakness upper extremity numbness tingling or weakness referred neck jaw or arm pain. No sweats no nausea no vomiting. No hematemesis no coffee-ground emesis. Patient did undergo upper endoscopy and colonoscopy during her hospitalization. Patient was seen by Dr. Rishi Scott and does not have a primary care provider. Patient takes no blood thinning agents at this time is been told not to take any aspirin products due to her marked sensitivity and to aspirin and her history of peptic ulcer disease. Patient has had no injury or fall. Patient's had no bladder or bowel incontinence. Patient does not report any saddle anesthesia. Patient also has history of PAD but does not report claudication at this time. MD complaint: chest pain Complete Quality Measures for STEMI Alert Patients STEMI Alert: No Onset (ago): hour(s) Duration: improved Onset: during rest Pain location: epigastric Severity: moderate Quality: tightness Relieving factors: nothing Exacerbating factors: nothing Context: recent illness (Recent hospitalization for GI bleed) Associated symptoms: other Treatments prior to arrival chest pain: none Related Data On Oral Contraceptives: No Home Medications Medication Instructions Recorded Confirmed ferrous sulfate 325 mg PO DAILY 01/04/18 01/10/18 Previous Rx's Medication Instructions Recorded furosemide 20 mg PO DAILY #30 tab 12/12/17 hydrocortisone [Anusol-HC] 1 applicatio SD TID #1 g 01/09/18 pantoprazole [Protonix] 40 mg PO DAILY 14 Days each 01/09/18 Allergies Allergy/AdvReac Type Severity Reaction Status Date / Time No Known Allergies Allergy Verified 01/10/18 02:21 Review of Systems ROS: all other systems reviewed are negative [facility] Social History Social History Substance History: No History of Abuse Second Hand Smoke Exposure: No Smoking Status: Never smoker How Often Do You Have a Drink Containing Alcohol: Never Recent Travel in [facility] within the Last 8 Weeks: No Recent Out of Country Travel within the Last 8 Weeks: No Immunization History Tetanus Immunization: Never Vaccinated Exam Narrative Exam Narrative: GENERAL: Well-developed well-nourished morbidly obese female in no acute distress no respiratory distress GCS 15 NIH SS 0 SKIN: Focused skin assessment warm/dry. HEAD: Atraumatic. Normocephalic. EYES: Pupils equal and round. No scleral icterus. No injection or drainage. ENT: No nasal bleeding or discharge. Mucous membranes pink and moist. NECK: Trachea midline. No JVD. CARDIOVASCULAR: Regular rate and rhythm. No murmur appreciated. RESPIRATORY: No accessory muscle use. Clear to auscultation. Breath sounds equal bilaterally. GASTROINTESTINAL: Abdomen soft, non-tender, nondistended. Hepatic and splenic margins not palpable. MUSCULOSKELETAL: No obvious deformities. No clubbing. No cyanosis. No edema. Patient has area in L3 distribution for complaint of numbness although light touch is present. Patient has reproducible lower lumbar midline spine pain to palpation. No bony step-off. No SI joint tenderness. NEUROLOGICAL: Awake and alert. No obvious cranial nerve deficits. Motor grossly within normal limits. Sensory exam intact as tested. No pronator drift. No limb ataxia. Normal speech. PSYCHIATRIC: Appropriate mood and affect; insight and judgment normal. Course Initial Documented Vital Signs Temperature 98.9 F 01/10/18 01:56 Pulse Rate 98 H 01/10/18 01:56 Respiratory Rate 18 01/10/18 01:56 Blood Pressure 179/79 H 01/10/18 01:56 Pulse Oximetry 95 01/10/18 01:56 Last Documented Vital Signs Temperature 98.9 F 01/10/18 01:56 Pulse Rate 98 H 01/10/18 01:56 Respiratory Rate 18 01/10/18 01:56 Blood Pressure 163/74 H 01/10/18 02:22 Pulse Oximetry 99 01/10/18 06:20 Medical Decision Making MDM Narrative Medical decision making narrative: 53-year-old with recent hospitalization presents with complaint of pain in the right lower extremity associated with L3 distribution numbness no discernible right greater than left swelling also with chest pain and right subscapular pain. IV access obtained specimens collected and sent for resulting patient placed on junior art director with continuous pulse oximetry ultrasound ordered Patient unable to tolerate aspirin due to GI bleed and peptic ulcer disease. Patient unable to receive nonsteroidal anti-inflammatory medication in view of peptic ulcer disease. Patient with hypertension morbid obesity and PAD increases risk for CAD therefore CTA is negative for pulmonary embolism ultrasound is negative for DVT patient with retrosternal chest pain will proceed with chest pain center protocol serial enzymes and EKGs and patient will be managed with Nitropaste 1/2 inch to chest wall and as needed sublingual nitroglycerin. For management of her radiculopathy I think it has to do with the fact that she has been bedridden several times over the past 1 month and further deconditioned her core musculature increasing her risk for symptoms related to lumbar disc disease. Medical Screen Exam Complete: Yes Emergency Medical Condition: Yes Differential Diagnosis Differential Diagnosis: Lumbar radiculopathy, DVT, biliary colic, pancreatitis, ACS, CT, anemia, TIA, PE Medical Records Medical records reviewed: Yes I reviewed the patient's medical records. Lab Data Lab results reviewed: Yes I reviewed the patient's lab results. Result diagrams: 01/10/18 02:20 01/10/18 02:20 Lab Results 01/10/18 01/10/18 01/10/18 Range/Units 02:20 02:20 02:20 WBC 9.4 (4.0-11.0) th/mm3 RBC 4.50 (4.00-5.30) mil/mm3 Hgb 9.6 L (11.6-15.3) gm/dL Hct 31.0 L (35.0-46.0) % MCV 69.0 L (80.0-100.0) fL MCH 21.3 L (27.0-34.0) pg MCHC 30.9 L (32.0-36.0) % RDW 24.4 H (11.6-17.2) % Plt Count 409 (150-450) th/mm3 MPV 8.5 (7.0-11.0) fL Neut % (Auto) 74.2 H (16.0-70.0) % Lymph % (Auto) 14.6 (9.0-44.0) % Grant % (Auto) 6.3 (0.0-8.0) % Eos % (Auto) 3.7 (0.0-4.0) % Baso % (Auto) 1.2 (0.0-2.0) % Neut # (Auto) 7.0 (1.8-7.7) th/mm3 Lymph # (Auto) 1.4 (1.0-4.8) th/mm3 Grant # (Auto) 0.6 (0.0-0.9) th/mm3 Eos # (Auto) 0.3 (0.0-0.4) th/mm3 Baso # (Auto) 0.1 (0.0-0.2) th/mm3 WBC Differential . Differential Comment Auto diff final PT 9.9 (9.8-11.6) sec INR 1.0 Ratio APTT 26.7 (24.3-30.1) sec D-Dimer Quant (PE/DVT) (0.00-0.50) mg/L FEU Sodium 137 (136-145) meq/L Potassium 3.7 (3.5-5.1) meq/L Chloride 100 (98-107) meq/L Carbon Dioxide 28.8 (21.0-32.0) meq/L Anion Gap 8 (5-15) meq/L BUN 8 (7-18) mg/dL Creatinine 0.63 (0.50-1.00) mg/dL Estimated GFR Greater than 89 (>89) mL/min Random Glucose 115 H (74-106) mg/dL Calcium 8.6 (8.5-10.1) mg/dL Magnesium 2.1 (1.5-2.5) mg/dL Total Bilirubin 0.3 (0.2-1.0) mg/dL AST 18 (15-37) U/L ALT 25 (10-53) U/L Alkaline Phosphatase 88 (45-117) U/L Troponin I Less than 0.02 L (0.02-0.05) ng/mL Total Protein 7.8 D (6.4-8.2) g/dL Albumin 3.0 L (3.4-5.0) g/dL Lipase 69 L (73-393) U/L Blood Type Antibody Screen 01/10/18 01/10/18 Range/Units 02:20 02:20 WBC (4.0-11.0) th/mm3 RBC (4.00-5.30) mil/mm3 Hgb (11.6-15.3) gm/dL Hct (35.0-46.0) % MCV (80.0-100.0) fL MCH (27.0-34.0) pg MCHC (32.0-36.0) % RDW (11.6-17.2) % Plt Count (150-450) th/mm3 MPV (7.0-11.0) fL Neut % (Auto) (16.0-70.0) % Lymph % (Auto) (9.0-44.0) % Grant % (Auto) (0.0-8.0) % Eos % (Auto) (0.0-4.0) % Baso % (Auto) (0.0-2.0) % Neut # (Auto) (1.8-7.7) th/mm3 Lymph # (Auto) (1.0-4.8) th/mm3 Grant # (Auto) (0.0-0.9) th/mm3 Eos # (Auto) (0.0-0.4) th/mm3 Baso # (Auto) (0.0-0.2) th/mm3 WBC Differential Differential Comment PT (9.8-11.6) sec INR Ratio APTT (24.3-30.1) sec D-Dimer Quant (PE/DVT) 0.72 H (0.00-0.50) mg/L FEU Sodium (136-145) meq/L Potassium (3.5-5.1) meq/L Chloride (98-107) meq/L Carbon Dioxide (21.0-32.0) meq/L Anion Gap (5-15) meq/L BUN (7-18) mg/dL Creatinine (0.50-1.00) mg/dL Estimated GFR (>89) mL/min Random Glucose (74-106) mg/dL Calcium (8.5-10.1) mg/dL Magnesium (1.5-2.5) mg/dL Total Bilirubin (0.2-1.0) mg/dL AST (15-37) U/L ALT (10-53) U/L Alkaline Phosphatase (45-117) U/L Troponin I (0.02-0.05) ng/mL Total Protein (6.4-8.2) g/dL Albumin (3.4-5.0) g/dL Lipase (73-393) U/L Blood Type O Positive Antibody Screen Negative Imaging Data Radiologist's impression: Chest X-Ray 01/10/18 02:22 CONCLUSION: 1. Hypoinflation with no acute infiltrate. 2. Compensated cardiomegaly Venous Doppler Study 01/10/18 02:22 CONCLUSION: Negative exam. No sonographic or Doppler findings of deep venous thrombosis. Chest CTA 01/10/18 05:29 CONCLUSION: Negative exam. No acute infiltrate or pulmonary embolus to explain current clinical symptoms. ECG Data EKG Prior to Arrival: No Prior ECG tracings: not available for review Interpretation: EKG: Normal sinus rhythm rate 95 LVH by voltage criteria no acute ST elevation or injury pattern change noted artifact is present at baseline Discharge Plan Discharge Disposition Patient Disposition: 30 Still Patient Discharge Condition Condition: Stable Discharge Details Diagnosis: Chest pain, Lumbar radiculopathy, right Physicians Team ED Provider: Delaney He Primary Care Provider: Primary Care Marsha Agustin Rxs /Orders / Referrals /Forms Prescriptions: No Action furosemide 20 mg Tablet 20 mg PO DAILY Qty: 30 RF: 3 ferrous sulfate 325 mg (65 mg iron) Tablet 325 mg PO DAILY RF: 0 pantoprazole [Protonix] [address] For Susp In Packet 40 mg PO DAILY 14 Days RF: 0 hydrocortisone [Anusol-HC] 2.5 % Cream With Perineal Applicator 1 applicatio SD TID Qty: 1 RF: 0 Discharge Instructions Patient Printed Instructions: Chest Pain (ED) Status ED Status: Admitted Observation Patient
[2018-01-10 02:53] LABS: Baso # (Auto) 0.1 th/mm3 (0.0-0.2); Baso % (Auto) 1.2 % (0.0-2.0); Eos # (Auto) 0.3 th/mm3 (0.0-0.4); Eos % (Auto) 3.7 % (0.0-4.0); Hemoglobin 9.6 gm/dL (11.6-15.3); Lymph # (Auto) 1.4 th/mm3 (1.0-4.8); Lymph % (Auto) 14.6 % (9.0-44.0); Mean Corpuscular Hemoglobin 21.3 pg (27.0-34.0); Mean Platelet Volume 8.5 fL (7.0-11.0); Mono # (Auto) 0.6 th/mm3 (0.0-0.9); Mono % (Auto) 6.3 % (0.0-8.0); Neut % (Auto) 74.2 % (16.0-70.0); Platelet Count 409 th/mm3 (150-450); Red Cell Distribution Width 24.4 % (11.6-17.2); White Blood Count 9.4 th/mm3 (4.0-11.0)
[2018-01-10 02:55] LABS: Activated Partial Thrombo Time 26.7 sec (24.3-30.1); Mean Corpuscular HGB Conc 30.9 % (32.0-36.0); Prothrombin Time 9.9 sec (9.8-11.6)
[2018-01-10 03:01] LABS: Alanine Aminotransferase 25 U/L (10-53); Anion Gap 8 meq/L (5-15); Aspartate Aminotransferase 18 U/L (15-37); Blood Urea Nitrogen 8 mg/dL (7-18); Calcium 8.6 mg/dL (8.5-10.1); Carbon Dioxide 28.8 meq/L (21.0-32.0); Chloride 100 meq/L (98-107); Glomerular Filtration Rate Greater Than 89 mL/min (>89); Glucose,Random 115 mg/dL (74-106); Lipase 69 U/L (73-393); Magnesium 2.1 mg/dL (1.5-2.5); Potassium 3.7 meq/L (3.5-5.1); Sodium 137 meq/L (136-145)
--- NOTE | 2018-01-10 03:03 | XR ---
EXAM DATE: 01/10/2018 2:35 AM EDT AGE/SEX: 53 years / Female INDICATIONS: Chest pain. CLINICAL DATA: This is the patient's initial encounter. Patient reports that signs and symptoms have been present for 1 day and indicates a pain score of 5/10. MEDICAL/SURGICAL HISTORY: None. None. COMPARISON: [facility] [place] 1V SINGLE AP, [place]/04/2018. . FINDINGS: A single AP view of the chest demonstrates the lungs to be symmetrically hypoinflated with no acute i nfiltrate. Accounting for the degree of inspiration, heart size is prominent but well compensated. CONCLUSION: 1. Hypoinflation with no acute infiltrate. 2. Compensated cardiomegaly Electronically signed by: Daniel Leija MD 01/10/2018 3:01 AM EDT
[2018-01-10 03:05] LABS: Alkaline Phosphatase 88 U/L (45-117); Total Protein 7.8 g/dL (6.4-8.2)
--- NOTE | 2018-01-10 04:03 | US ---
EXAM DATE: 01/10/2018 3:39 AM EDT AGE/SEX: 53 years / Female INDICATIONS: Right lower extremity pain. CLINICAL DATA: This is the patient's subsequent encounter. Patient reports that signs and symptoms h ave been present for 1 day and indicates a pain score of 2/10. MEDICAL/SURGICAL HISTORY: Gastrointestinal bleed. Peripheral artery disease. None. COMPARISON: No prior exams available for comparison. TECHNIQUE: Venous ultrasound of both lower extremities was performed from the inguinal ligament to t he proximal calf. Real-time, color Doppler and spectral tracing, compression and augmentation techni ques were used. FINDINGS: Normal compression of the deep venous system from the inguinal region to the proximal calf . No echogenic clot is seen. Normal response of the venous system to augmentation and respiration. CONCLUSION: Negative exam. No sonographic or Doppler findings of deep venous thrombosis. Electronically signed by: Daniel Leija MD 01/10/2018 4:01 AM EDT
--- NOTE | 2018-01-10 06:08 | CT ---
EXAM DATE: 01/10/2018 6:04 AM EDT AGE/SEX: 53 years / Female INDICATIONS: Chest pain, shortness of breath. CLINICAL DATA: This is the patient's initial encounter. Patient reports that signs and symptoms have been present for 1 day and indicates a pain score of 4/10. MEDICAL/SURGICAL HISTORY: . Coronary artery disease. None. RADIATION DOSE: 10.75 CTDI (mGy) COMPARISON: [facility], CTA PULMONARY W CONTRAST W 3D, 01/04/2018. . TECHNIQUE: Volumetric scanning was performed using a multi-row detector CT scanner during bolus infu daniele of 74 ml Omnipaque 350 (iohexol) nonionic water-soluble contrast as a single exam dose. The rimma a was post processed with a variety of visualization algorithms including full volume maximum intensi ty projection and sliding thin slab reformation. Using automated exposure control and adjustment of the mA and/or kV according to patient size, radiation dose was kept as low as reasonably achievable t o obtain optimal diagnostic quality images. DICOM format image data is available electronically for review and comparison. FINDINGS: Pulmonary Arteries: No filling defects are seen in the pulmonary arteries out to the subsegmental ve ssels. The left and right pulmonary arteries are normal in diameter. Lung: No infiltrates seen. Effusion: None. Mediastinum: No evidence of mediastinal or hilar adenopathy. Other: The axilla is unremarkable. CONCLUSION: Negative exam. No acute infiltrate or pulmonary embolus to explain current clinical symptoms. Electronically signed by: Daniel Leija MD 01/10/2018 6:07 AM EDT
[2018-01-10] MEDS ORDERED: Acetaminophen 500 MG Tablet PO PRN (06:18)
[2018-01-10 07:17] LABS: Creatine Kinase 38 U/L (26-192)
--- NOTE | 2018-01-10 13:55 | ECG ---
Date Performed: 01/10/2018 Time Performed: 02:06:59 PTAGE: 53 years EKG: Sinus rhythm MODERATE VOLTAGE CRITERIA FOR LVH, CONSIDER NORMAL VARIANT BORDERLINE ECG Since the PREVIOUS TRACING sinus rate has decreased PREVIOUS TRACIN01/04/2018 20.58 DOCTOR: Natan Cantor Interpretating Date/Time 01/10/2018 13:54:49
--- NOTE | 2018-01-10 13:55 | ECG ---
Date Performed: 01/10/2018 Time Performed: 06:28:29 PTAGE: 53 years EKG: Sinus rhythm MODERATE VOLTAGE CRITERIA FOR LVH, CONSIDER NORMAL VARIANT NONSPECIFIC T-WAVE ABNORMALITY BORDERLINE ECG Since the PREVIOUS TRACING , no significant change noted PREVIOUS TRACIN01/10/2018 02.06 DOCTOR: Natan Cantor Interpretating Date/Time 01/10/2018 13:54:58
--- NOTE | 2018-01-10 14:05 | P.HPCA ---
History of Present Illness Primary Care Physician: No Primary Care Physician Chief Complaint: Chest pressure History of Present Illness: 53 year old female with history of anemia, GIB, pulmonary hypertension, and morbidly obese presents to ER for further evaluation of chest pressure. Discharged yesterday evening 5pm after a 5 day admission for GIB. Around 2am developed right sided of right leg feeling numb and followed by bilateral feet numbness. Developed right shoulder and right anterior chest pressure when attempting to lay flat with associated intermittent mid back and substernal quick sharp pains. Right arm felt numb and "tingly." Endorses accompanied shortness of breath. Denied nausea, vomiting, diaphoresis, or dizziness. Duration 15 minutes. Moderate in severity. Endorses similar pain in the past last week prior to admission. Sitting up improved discomfort. Continues to experience intermittent sharp pains. No precipitating factors. No known coronary artery disease, hyperlipidemia, or diabetes. No recent cardiac testing. Reports family history of early onset cardiovascular disease. Until becoming symptomatic with anemia in November 2017, she has not seen a physician in 30 years. During recent hospital stay pulmonary consult notes indicated diagnoses of COPD and likely ABIMBOLA, instructed to follow up for further testing. Consults also placed to [facility] and GI for abnormal uterine bleeding and rectal bleeding. Instructed to follow up as outpatient with [facility] and GI recommended no further GI procedures. Speech therapy evaluated patient with modified barium swallow who recommended regular solids and thin liquids. No further bleeding, no difficulty swallowing. - Diagnosis (1) Atypical chest pain (2) History of anemia Review of Systems All other systems reviewed negative except as stated in HPI PMFSH - History History Provided By: Patient - Medical / Surgical Hx Neg / Unobtainable Surgical History: No Previous Surgery - Medical History Medical History: Medical History (Last Updated 01/10/18 @ 14:07 by ISABELLE Poole) COPD (chronic obstructive pulmonary disease) Gastrointestinal bleed Morbid obesity with BMI of 50.0-59.9, adult Pulmonary hypertension Anemia - Surgical History Surgical History: Surgical History (Last Reviewed 01/07/18 @ 08:23 by Jigar Cunningham) No history of previous surgery - Family History Family History: Family History (Last Updated 01/10/18 @ 14:10 by ISABELLE Poole) Father Throat cancer Colon cancer Diabetes mellitus CAD (coronary artery disease) Myocardial infarct Mother Colon cancer Diabetes mellitus Dementia Brother Myocardial infarct - Tobacco History Second Hand Smoke Exposure: Yes Tobacco Use In Past 30 Days: No Smoking Status: Never smoker - Alcohol History How Often Do You Have a Drink Containing Alcohol: Monthly or less - Substance Use History Substance History: No History of Abuse - Travel History History of Recent Travel: No Recent Travel in the [place] Within the Last 8 Weeks: No Recent Travel Out of the Country Within the Last 8 Weeks: No - Immunization History Tetanus Immunization: Never Vaccinated Medications and Allergies Active Medications: Active Medications Acetaminophen (Tylenol) 500 mg PO Q4H PRN PRN Reason: HEADACHE Hydrocodone Bitart/Acetaminophen ([place] 7.5/325) 1 tab PO Q4H PRN PRN Reason: PAIN SCALE 1 TO 7 Nitroglycerin (Nitrostat Sl) 0.4 mg SL Q5M PRN PRN Reason: CHEST PAIN Ondansetron HCl (Zofran Inj) 4 mg IV.PUSH Q6H PRN PRN Reason: NAUSEA Last Admin: 01/10/18 11:37 Dose: 4 mg Pantoprazole Sodium (Protonix) 40 mg PO DAILY [facility] Last Admin: 01/10/18 08:12 Dose: 40 mg Sodium Chloride (Ns Flush) 2 ml IV.FLUSH UNSCH PRN PRN Reason: FLUSH AFTER USING IV ACCESS Last Admin: 01/10/18 04:54 Dose: 2 ml Sodium Chloride (Ns Flush) 2 ml IV.FLUSH BID [facility] Last Admin: 01/10/18 08:12 Dose: 2 ml Sodium Chloride (Ns Flush) 2 ml IV.FLUSH PRN PRN PRN Reason: FLUSH AFTER USING IV ACCESS Allergies Allergy/AdvReac Type Severity Reaction Status Date / Time No Known Allergies Allergy Verified 01/10/18 02:21 Home Medications Medication Instructions Recorded Confirmed Type ferrous sulfate 325 mg PO DAILY 01/04/18 01/10/18 History Exam Vital signs: Vital Signs 01/10/18 01:56 01/10/18 01:59 01/10/18 02:22 Temperature 98.9 F Pulse Rate 98 H Respiratory Rate 18 19 Blood Pressure 179/79 H 163/74 H Blood Pressure [Left Arm] 131/61 Pulse Oximetry 95 01/10/18 02:25 01/10/18 06:20 01/10/18 06:35 Temperature Pulse Rate 103 H Respiratory Rate 19 Blood Pressure 131/61 Blood Pressure [Left Arm] Pulse Oximetry 98 99 98 01/10/18 07:08 01/10/18 08:00 01/10/18 12:00 Temperature 98.3 F 98.7 F Pulse Rate 78 87 75 Respiratory Rate 16 18 18 Blood Pressure 117/80 97/42 L 101/56 L Blood Pressure [Left Arm] Pulse Oximetry 94 L 95 Intake & Output 01/09/18 01/10/18 01/10/18 18:59 06:59 18:59 Weight 174.633 kg 174.633 kg Other: Weight On Admission 174.633 kg Narrative: GENERAL: Alert WN, WD, NAD, pleasant, morbidly obese female who appears older than stated age HEAD: NC, AT CV: RRR, without murmur, rub, gallop, no JVD. Chest wall pain reproduced with palpation. RESP: Diminished lungs throughout bilateral, no crackles, wheeze, rhonchi. symmetrical chest rise, nonlabored, able to speak in full sentences ABD: Soft, NT, ND, no masses, positive bowel tones, obese EXT: Pulses +2x4, +2 pitting edema bilateral lower extremities MS: Normal tone x4 extremities, no obvious deformities, full range of motion, repositioning difficult for her due to body habitus. NEURO: CN II through CN XII grossly intact, motor strength 5/5 PSYCH: A+Ox3 , pleasant affect, appropriate speech, mood, questionable insight and judgment SKIN: Normal turgor, normal texture Results 01/10/18 02:20 01/10/18 02:20 Cardiac Enzymes 01/10/18 01/10/18 01/10/18 Range/Units 02:20 06:05 09:25 AST 18 (15-37) U/L Troponin I Less than 0.02 L Less than 0.02 L Less than 0.02 L (0.02-0.05) ng/mL Coagulation 01/10/18 Range/Units 02:20 PT 9.9 (9.8-11.6) sec APTT 26.7 (24.3-30.1) sec CBC 01/10/18 Range/Units 02:20 WBC 9.4 (4.0-11.0) th/mm3 RBC 4.50 (4.00-5.30) mil/mm3 Hgb 9.6 L (11.6-15.3) gm/dL Hct 31.0 L (35.0-46.0) % Plt Count 409 (150-450) th/mm3 Neut # (Auto) 7.0 (1.8-7.7) th/mm3 Lymph # (Auto) 1.4 (1.0-4.8) th/mm3 [place] # (Auto) 0.6 (0.0-0.9) th/mm3 Eos # (Auto) 0.3 (0.0-0.4) th/mm3 Baso # (Auto) 0.1 (0.0-0.2) th/mm3 Comprehensive Metabolic Panel 01/10/18 Range/Units 02:20 Sodium 137 (136-145) meq/L Potassium 3.7 (3.5-5.1) meq/L Chloride 100 (98-107) meq/L Carbon Dioxide 28.8 (21.0-32.0) meq/L BUN 8 (7-18) mg/dL Creatinine 0.63 (0.50-1.00) mg/dL Calcium 8.6 (8.5-10.1) mg/dL AST 18 (15-37) U/L ALT 25 (10-53) U/L Alkaline Phosphatase 88 (45-117) U/L Total Protein 7.8 D (6.4-8.2) g/dL Albumin 3.0 L (3.4-5.0) g/dL Intake and Output 01/09/18 01/10/18 01/10/18 22:59 06:59 14:59 Other: Weight 174.633 kg 174.633 kg Weight On Admission 174.633 kg Patient Weight 01/11/18 06:59 Weight 174.633 kg EKG interpretations - EKG EKG results cardiology: sinus rhythm (Normal sinus rhythm, nonspecific ST-T segment changes) Caprini VTE Risk Assessment Caprini VTE Risk Assessment: No/Low Risk (score <= 1) Caprini Risk Assessment Model: Point Value = 1 Point Value = 2 Point Value = 3 Point Value = 5 Age 41-60 Minor surgery BMI > 25 kg/m2 Swollen legs Varicose veins or History of unexplained or recurrent spontaneous Oral contraceptives or hormone replacement Sepsis (< 1 month) Serious lung disease, including pneumonia (< 1 month) Abnormal pulmonary function Acute myocardial infarction Congestive heart failure (< 1 month) History of inflammatory bowel disease Medical patient at bed rest Age 61-74 Arthroscopic surgery Major open surgery (> 45 min) Laparoscopic surgery (> 45 min) Malignancy Confined to bed (> 72 hours) Immobilizing plaster cast Central venous access Age >= 75 History of VTE Family history of VTE Factor V Leiden Prothrombin [id number] Lupus anticoagulant Anticardiolipin antibodies Elevated serum homocysteine Heparin-induced thrombocytopenia Other congenital or acquired thrombophilia Stroke (< 1 month) Elective arthroplasty Hip, pelvis, or leg fracture Acute spinal cord injury (< 1 month) Prophylaxis Regimen: Total Risk Factor Score Risk Level Prophylaxis Regimen 0-1 Low Early ambulation 2 Moderate Order ONE of the following: *Sequential Compression Device (SCD) *Heparin 5000 units SQ BID 3-4 Higher Order ONE of the following medications: *Heparin 5000 units SQ TID *Enoxaparin/Lovenox 40 mg SQ daily (WT < 150 kg, CrCl > 30 mL/min) *Enoxaparin/Lovenox 30 mg SQ daily (WT < 150 kg, CrCl > 10-29 mL/min) *Enoxaparin/Lovenox 30 mg SQ BID (WT < 150 kg, CrCl > 30 mL/min) AND/OR *Sequential Compression Device (SCD) 5 or more Highest Order ONE of the following medications: *Heparin 5000 units SQ TID (Preferred with Epidurals) *Enoxaparin/Lovenox 40 mg SQ daily (WT < 150 kg, CrCl > 30 mL/min) *Enoxaparin/Lovenox 30 mg SQ daily (WT < 150 kg, CrCl > 10-29 mL/min) *Enoxaparin/Lovenox 30 mg SQ BID (WT < 150 kg, CrCl > 30 mL/min) AND *Sequential Compression Device (SCD) Assessment and Plan - Assessment (1) Atypical chest pain Code(s): R07.89 - Other chest pain Status: Acute Plan: Admitted chest pain center. Continue ruling out ACS as initiated in ER. Will be seen evaluated by Dr. Ernesto Vela. (2) History of anemia Code(s): Z86.2 - Personal history of diseases of the blood and blood-forming organs and certain disorders involving the immune mechanism Status: Chronic Plan: Hemoglobin hematocrit stable 9.6/31, no current bleeding. H&P: Quality - VTE Deep Vein Thrombosis/Pulmonary Embolism Present on Admission: No
[2018-01-10] MEDS: Furosemide 20 MG Tablet PO SCH (14:47)
[2018-01-10] MEDS: Ferrous Sulfate 325 MG Tablet PO SCH (14:47)
--- NOTE | 2018-01-10 15:42 | P.PNCA ---
Subjective Interval history: Morbidly obese 53-year-old lady with a long history of a recent hospitalization having been discharged at 5:00 yesterday afternoon. She represents now with back and diffuse chest pain was presented by the nurse practitioner. After review of her history and documentation along with current laboratory radiographic and electrocardiographic studies the patient was personally seen and examined. Basically have nothing to add to the documented history and physical and when it reviewed in total I am in agreement. Physical Exam Vital signs: Vital Signs 01/10/18 01:56 01/10/18 01:59 01/10/18 02:22 Temperature 98.9 F Pulse Rate 98 H Respiratory Rate 18 19 Blood Pressure 179/79 H 163/74 H Blood Pressure [Left Arm] 131/61 Pulse Oximetry 95 01/10/18 02:25 01/10/18 06:20 01/10/18 06:35 Temperature Pulse Rate 103 H Respiratory Rate 19 Blood Pressure 131/61 Blood Pressure [Left Arm] Pulse Oximetry 98 99 98 01/10/18 07:08 01/10/18 08:00 01/10/18 12:00 Temperature 98.3 F 98.7 F Pulse Rate 78 87 75 Respiratory Rate 16 18 18 Blood Pressure 117/80 97/42 L 101/56 L Blood Pressure [Left Arm] Pulse Oximetry 94 L 95 Intake & Output 01/09/18 01/10/18 01/10/18 18:59 06:59 18:59 Weight 174.633 kg 174.633 kg Other: Weight On Admission 174.633 kg Narrative: Morbidly obese lady who is resting comfortably in a semi-recumbent position in bed at this time. Neck is to fat to be able to assess for JVD or bruits Chest breath sounds are markedly diminished probably secondary to obesity Cardiovascular evaluation is very difficult also due to her obesity but heart sounds appear to be regular no gallop rub or murmurs appreciated Abdomen is massively obese with some diffuse tenderness but no guarding or rebound Extremities currently there is no clubbing cyanosis or edema but she does state that if her legs are down for even 4 hours she begins to develop rapid swelling. Pulses are not palpable Assessment and Plan - Assessment (1) Atypical chest pain Code(s): R07.89 - Other chest pain Status: Acute Plan: Admitted chest pain center. Continue ruling out ACS as initiated in ER. Will be seen evaluated by Dr. Ernesto Vela. Patient's presentation is very atypical for cardiovascular pain and more likely related to her known and documented ulcer disease however she certainly has increased risk for cardiac disease. She is not a candidate for stress testing and has ruled out for ACS. The other option will be to perform a nuclear scan in the a.m. If this is negative she will be discharged for further outpatient evaluation. However, the patient has no insurance or financial support and has been unable to get a disability so she is very apprehensive that she cannot get outpatient care or follow-up. This may be in fact part of her presenting back to the hospital with her current complaints. (2) History of anemia Code(s): Z86.2 - Personal history of diseases of the blood and blood-forming organs and certain disorders involving the immune mechanism Status: Chronic Plan: Hemoglobin hematocrit stable 9.6, no current bleeding.
[2018-01-11] MEDS: Furosemide 20 MG Tablet PO SCH (08:15)
[2018-01-11] MEDS: Ferrous Sulfate 325 MG Tablet PO SCH (08:15)
--- NOTE | 2018-01-11 11:49 | P.PNCA ---
Subjective Interval history: No further chest discomfort. Continues to experience intermittent right side of right leg numbness and bilateral lower extremities become numb when both feet placed in bed. Slept well overnight. Physical Exam Vital signs: Vital Signs 01/10/18 12:00 01/10/18 12:41 01/10/18 16:00 Temperature 98.0 F Pulse Rate 75 82 84 Respiratory Rate 18 18 Blood Pressure 101/56 L 114/69 Pulse Oximetry 95 95 01/10/18 18:15 01/10/18 20:00 01/11/18 00:00 Temperature 99.1 F 99.0 F Pulse Rate 89 88 90 Respiratory Rate 20 20 Blood Pressure 155/55 H 140/98 H Pulse Oximetry 93 L 95 01/11/18 04:00 01/11/18 07:21 01/11/18 08:00 Temperature 99.0 F 99.0 F Pulse Rate 90 97 H 96 H Respiratory Rate 18 18 18 Blood Pressure 140/64 112/59 L Pulse Oximetry 93 L 95 01/11/18 11:29 Temperature 98.9 F Pulse Rate 78 Respiratory Rate 18 Blood Pressure 121/58 L Pulse Oximetry 96 Intake & Output 01/10/18 01/11/18 01/11/18 18:59 06:59 18:59 Intake Total 200 / 200 Balance 200 / 200 Weight 174.633 kg Intake: Oral 200 / 200 Other: Weight On Admission 174.633 kg Narrative: Morbidly obese female in no acute distress - Constitutional no acute distress - Routine HEENT Exam Head: Present: normocephalic, atraumatic - Routine Respiratory Exam Present: decreased breath sounds. Absent: accessory muscle use - Routine Cardiovascular Exam Present: RRR. Absent: murmur, gallop, rubs Assessment and Plan - Assessment (1) Atypical chest pain Code(s): R07.89 - Other chest pain Status: Acute Plan: Plan to proceed with Lexiscan. Due to body habitus, 2 day study required, resting images completed today. (2) History of anemia Code(s): Z86.2 - Personal history of diseases of the blood and blood-forming organs and certain disorders involving the immune mechanism Status: Chronic Plan: Hemoglobin hematocrit stable 9.6/31, no current bleeding.
--- NOTE | 2018-01-11 12:03 | ECG ---
Date Performed: 01/10/2018 Time Performed: 09:21:54 PTAGE: 53 years EKG: Sinus rhythm MINIMAL VOLTAGE CRITERIA FOR LVH, CONSIDER NORMAL VARIANT NONSPECIFIC T-WAVE ABNORMALITY BORDERLINE ECG No significant change NO PREVIOUS TRACING DOCTOR: Ernesto Vela Interpretating Date/Time 01/11/2018 12:01:10
[2018-01-12 07:46] VITALS: RESP 18; O2SAT 95
[2018-01-12] MEDS: Furosemide 20 MG Tablet PO SCH (08:14)
[2018-01-12] MEDS: Ferrous Sulfate 325 MG Tablet PO SCH (08:15)
[2018-01-12] MEDS ORDERED: Regadenoson Inj 0.4 MG/5 ML Syringe IV.PUSH ONE (09:17)
--- NOTE | 2018-01-12 11:46 | NM ---
EXAM DATE: 01/12/2018 10:38 AM EDT AGE/SEX: 53 years / Female INDICATIONS:Angina. . Right sided chest pain for one day. CLINICAL DATA: This is the patient's initial encounter. Patient reports that signs and symptoms have been present for 1 day and indicates a pain score of 5/10. MEDICAL/SURGICAL HISTORY: Hypertension. Chronic obstructive pulmonary disease. None. COMPARISON: [facility], [place] MYOCARDIAL PERF PHARM SPECT W/EF, 11/30/2017. . No external comparison. DOSE: 30.2 mCi Tc 99m Myoview at rest 30 mCi [id number] at stress 0.4 mg Lexiscan STRESS SYMPTOMS: Chest pressure and nausea. EJECTION FRACTION: 64 % TECHNIQUE: The patient underwent pharmacologic stress with infusion of prescribed dose. Continuous ECG tracing was monitored during stress. Gated SPECT imaging was performed after stress and conventi onal SPECT imaging was performed at rest. The examination was performed on a SPECT/CT scanner, both attenuation and non-corrected datasets were reviewed. FINDINGS: Distribution: The maximum perfused segment at stress is in the wall. Perfusion Study: The pattern of perfusion at stress is within normal limits. Gated Study: There are intact wall motion and wall thickening without hypokinetic segments. There is dyskinesia primarily in the apical wall. The ejection fraction is calculated at 64%. RISK CATEGORY: Low (<1% Annual Motality Rate) CONCLUSION: 1. No significant stress-induced perfusion abnormality. 2. Dyskinesia primarily near the apical wall. 3. EF of 64%. Electronically signed by: Xavi Manning MD 01/12/2018 11:45 AM EDT
[2018-01-12 11:51] VITALS: BP 117/62; PULSE 76; TEMP 97.3
--- NOTE | 2018-01-12 11:59 | TR ---
Date Performed: 01/12/2018 Time Performed: 09:11:23 DOCTOR: Quan Urias DRUG LIST: CLINICAL HISTORY: REASON FOR TEST: REASON FOR ENDING: OBSERVATION: CONCLUSION: COMMENTS: Lexiscan stress test was performed under standard four minute protocol. Radionuclide was injected one minute prior to ending the test. No electrocardiographic abormalities were present t o suggest ischemia. Nuclear imaging and interpretation are pending.
== END 2018-01-12 15:28 | disposition home or self-care (01) ==
LOC: NEPC 01:53 → NEDA 01:53 → NEPFCDU 08:07
PROVIDERS: ADMIT Internal Medicine Interventional Cardiology; ATTEND Internal Medicine Interventional Cardiology